=== PATIENT | male | born 1955 ===

== ENCOUNTER 2022-08-21 09:47 | Emergency (ER) | payer OTHER ==
--- OUTSIDE RECORDS SUMMARY | 2022-08-21 09:58 | XMS REPORT | Continuity of Care Document ---
:1955 Author Organization [facility] t Address [address] [facility] [place] [address] Care Team Providers Name Role Phone PCP, PATIENT DOES NOT HAVE A Primary Care Physician UnavailJERRY Mcknight Attending Clinician Unavailable MECHE MATA Attending Clinician Unavailable Leon Mills DO Attending Clinician Geoff Breen DO Attending Clinician Meche Mata MD Attending Clinician Morenita Traylor RN Attending Clinician Nicholas Cavazos W Attending Clinician Unavailable Emily Alves LVN Attending Clinician Mable Hsu Attending Clinician Jerry Taylor MD Attending Clinician Nura Myers Attending Clinician Unavailable Jaycee Roldan Attending Clinician Unavailable Behzadi MD, Tom A Attending Clinician Tico LEAHY, Dewayne G Attending Clinician Geoff LEAHY, Anne Giron Attending Clinician [phone] Dexter Rutledge DO Attending Clinician CLARKEDDATOM STEWART A Attending Clinician Unavailable Katelin LEAHY, Nicholas Castorena Attending Clinician Shweta LEAHY, Shay Randall Attending Clinician NICHOLAS SERRANO Attending Clinician Unavailable Judah Ross APN Attending Clinician JUDAH ROSS Attending Clinician Unavailable Isauro CHRISTINEP, Anum Snowden Attending Clinician Zoran Morris MD Attending Clinician Pramod YEBOAH, Dang Martinez Attending Clinician Belen Stark MD Attending Clinician BELEN STARK Attending Clinician Unavailable Soy LEAHY, Jemma Roblero Attending Clinician [phone] Odilon Zaragoza MD Attending Clinician Marylou Borrego MD Attending Clinician Lucille Darby RN Attending Clinician Umu Nielson MD Attending Clinician Valdez LEAHY, Jareth Harrison Attending Clinician UMU NIELSON Attending Clinician Unavailable Link Fuentes MD Attending Clinician JERRY TAYLOR Admitting Clinician Unavailable MECHE MATA Admitting Clinician Unavailable Adolfo LEAHY, Meche Admitting Clinician Jerry Taylor MD Admitting Clinician UNDEFINED Admitting Clinician Unavailable Physician, No Primary or Family Admitting Clinician Unavailboris Doshi MD, Dewayne G Admitting Clinician Shay Rock MD Admitting Clinician Nik LEAHY, Odilon Admitting Clinician Valdez LEAHY, Jareth Harrison Admitting Clinician Geoff LEAHY, Anne Giron Admitting Clinician Payers Payer Name Policy Type Policy Number Effective Date Expiration Date Bret mayer MEDICARE PART A [id number] 2021 \\T\\ B 00:00:00 MEDICAID [facility] [id number] 2021 00:00:00 Problems Condition Condition Condition Status Onset Resolution Last Treating Co mments Source Name Details Category Date Date Treatment Clinician Date Syncope Syncope Disease Active 2020-03 Univers 1-06 ity of 00:00: [place] [facility] Tachycardi Tachycardi Disease Active 2020-03 U nivers a a 1-06 ity of 00:00: [address] Branch COVID-19 COVID-19 Disease Active 2020-03 Unive rs virus virus 1-06 ity of infection infection 00:00: [facility] Branch Elevated Elevated Disease Active 2020-03 Unive rs brain brain 1-06 ity of natriureti natriureti [place] c peptide c peptide 00 [facility] león (BNP) (BNP) Branch level level Sepsis Sepsis Disease Active 2020-03 Univers 1-04 ity of 00:00: [address] Branch Confusion Confusion Disease Active 2019-03 Uni vers and and 1-12 ity of disorient[place] dis[place] Hypothermi Hypothermi Disease Active 2019-03 U nivers a a 0-29 ity of 00:00: [address] Branch Diarrhea Diarrhea Disease Active 2019-03 Unive rs with with 0-02 ity of dehydratio dehydratio [place] Electrolyt Electrolyt Disease Active U nivers e e 9-30 it[place] of imbalance imbalance [place] [facility] Weakness Weakness Disease Active Unive rs of both of both 9-29 ity of lower lower 00:00: [place] extremitie extremitie 00 Nv dical s s Branch Suspected Suspected Disease Active 2020-0 Uni vers COVID-19 COVID-19 8-11 ity of virus virus 00:00: [place] infection infection 00 [facility] Branch Prolonged Prolonged Disease Active 2020-0 Uni vers QT QT 8-11 ity of interval interval 00:00: Medical Branch Hypomagnes Hypomagnes Disease Active 2020-0 U nivers emia emia 8-11 ity of 00:: Medical Branch Hyponatrem Hyponatrem Disease Active 2020-0 U nivers ia ia 8-11 ity of 00:: [place] [facility] Tobacco Tobacco Disease Active 2020-0 Univers abuse abuse 8-11 ity of 00:: [place] [facility] Alcohol Alcohol Disease Active 2020-0 Univers abuse abuse 8-11 ity of 00:: Medical Branch Allergies, Adverse Reactions, Alerts Allergy Allergy Status Severity Reaction(s) Onset Inactive Treating Comm ents Source Name Type Date Date Clinician No Known DA Active U 2020-1 [facility] 00:[facility]: d [facility] No Known DA Active U 2020-1 [facility]ie 2[facility]07 [facility] 00:00: d [facility] No Known DA Active U 2020-1 [facility]ergie 2[facility]06 [facility] 00:00: d [facility] No Known DA Active U 2020-1 [facility] Allergie 2-06 [facility] 00:00: d [facility] No Known DA Active U 2020-1 [facility] Allergie 2-05 [facility] 00:00: d [facility] No Known DA Active U 2020-1 [facility] Allergie 2-05 [facility] 00:00: d [facility] No Known DA Active U 2020-1 [facility] Allergie 2-04 [facility] 00:00: d [facility] No Known DA Active U 2020-1 [facility] Allergie 2-04 [facility] 00:00: d [facility] No Known DA Active U 2020-1 [facility] Allergie 2-03 [facility] 00:00: d [facility] No Known DA Active U 2020-1 [facility] Allergie 2-03 [facility] 00:00: d [facility] No Known DA Active U 2020-1 [facility] Allergie 1-20 Clear s 00:00: Patel [facility] No Known DA Active U 2020-1 [facility] Allergie 1-20 Clear s 00:00: Patel 00 [facility] NO KNOWN Drug Active Univers ALLERGIE Class ity of S [facility] Social History Social Habit Start Date Stop Date Quantity Comments Source History of Cigarette Smoker Universi ty of tobacco use [facility] Exposure to Not sure University of SARS-CoV-2 [facility]ly [facility] (event) [place] Alcohol intake 2021-01-05 2021-01-05 Current drinker Unive rsity of 00:00:00 00:00:00 of alcohol Formerly [facility] (finding) [place] Tobacco use and 2019-12-30 2019-12-30 Never used Universit y of exposure 00:00:00 00:00:00 [facility] Sex [birth year] Universit y of 00:00:00 00:00:00 [facility] Smoking Status Start Date Stop Date Source Current every day smoker 2019-12-30 00:00:00 Uni versity of [facility] Medications Ordered Filled Start Stop Current Ordering Indication Dosage Frequency Signature Comments Components Source Medication Medication Date Date Medication? Clinician (SIG) Name Name foLIC acid Yes [id number] 1mg Take 1 U nivers 1 mg tablet 3-18 tablet by ity of 00:00: mouth [place] 00 daily. Medical Branch multivitami Yes [id number] 1{tbl} Take 1 Univers n tablet 3-18 tablet by ity of 00:00: mouth [place] 00 daily. Medical Branch thiamine Yes [id number] 100mg Take 1 Un ange 100 mg 3-18 tablet by ity of tablet 00:00: mouth [place] 00 daily. Medical Branch ceFAZolin Yes 2g Infuse 100 Un ange in 0.9% 3-17 mL every 8 ity of sodium 00:00: (eight) [place] chloride 2 00 hours. Medical gram/100 mL Branch NaCl 0.9% Yes 1000mg Infuse Univ ers (NS) PgBk 3-17 1,000 mg ity of 100 mL with 00:00: every 8 [place] as meropenem 00 (eight) Medical 500 mg SolR hours. Branch 1,000 mg ferrous 2021- No [id number] 325mg Take 1 Un ange sulfate 325 3-17 04-17 tablet by it y of mg (65 mg 00:00: 04:59 [place] 3 [place] iron) 00 :00 (three) Medical tablet times Branch daily with meals for 30 days. NaCl 0.9% Yes 10mL 10 mL, Univer s (NS) 3-16 Slow IV ity of injection 20:27: [place]N, [place] 10 mL 47 Starting Medical on Fri05/16/21 at 1527, Until Discontinu ed, Routine, line maintenanc e ferrous Yes 325mg 325 mg, Univer s sulfate 3-15 Oral, TID ity of tablet 325 22:00: MEALS, [place] mg 00 First dose Medical on Fri05/15/21 at 1700, Until Discontinu ed, Routine sulfur 2021- No [id number] 5mL 5 mL, Univ ers hexafluorid 05-15 Intravenou i ty of e microsphr 21:30: 21:30 s, ONCE, 1 [place] (LUMASON) 00 :00 dose, On Medica l injection 5 Fri [place] mL 05/15/21 at 1630, Routine
hull line crew member approving Restricted medication : LEXUS MENJIVAR magnesium 2021- No 2g 2 g, IV Univ ers sulfate in 05-15 Piggyback, it y of water 2 19:00: 21:00 Administer [place] gram/50 mL 00 :00 over 60 Medica l (4 %) Minutes, Branch infusion 2 Q1H, 2 g doses, First dose on Fri05/15/21 at 1400, Last dose on Fri05/15/21 at 1500, Routine multivitami Yes 1{tbl} 1 tablet, Univers n tablet 1 3-15 Oral, ity of tablet 14:00: DAILY, [place] 00 First dose Medical on Fri05/15/21 at 0900, Until Discontinu ed, Routine morpHINE Yes 4mg 4 mg, Slow Uni vers injection 4 3-15 IV Push, ity of mg 08:37: Q4HPRN, [place] Starting Medical on Fri05/15/21 at 0337, Until Discontinu ed, Routine, Pain (scale 7-10) HYDROcodone Yes 1{tbl} 1 tablet, Univers -acetaminop 3-15 Oral, ity of hen (NORCO 08:37: Q6HPRN, [place] 5) 5-325 mg 00 Starting Medi león tablet 1 on Fri Branch tablet 05/15/21 at 0337, Until Discontinu ed, Routine, Pain (scale 4-6) acetaminoph 2021-0 Yes 650mg 650 mg, Un ange en 3-15 Oral, ity of (TYLENOL) 08:36: Q6HPRN [place] tablet 650 48 Starting Medic al mg on Fri Branch 05/15/21 at 0336, Until Discontinu ed, Routine, Pain (scale 1-3) meropenem 0 Yes 1000mg 1,000 mg, U nivers (MERREM) 3-15 IV ity of 1,000 mg in 03:15: [place], [place] NaCl 0.9% 00 Administer Medi león (NS) 100 mL over 3 Branch MINI-BAG Hours, Q8H ABX, First dose on Fri05/14/21 at 2215, Until Discontinu ed, BARBARA
Re stricted use approved by: ADC PROVIDER<b r>Reason for Anti-Infec tive: Documented Infection< br>Documen brisa Infection Site: Bone
Du ration of Therapy: 7 days ceFAZolin 0 Yes 2000mg 2 g (2,000 Univers in 0.9% 3-14 mg), IV ity of sodium 19:45: [place], [place] chloride 00 Q8H ABX, Medical (ANCEF) 2 First dose Bran ch gram/100 mL on Fri RTU 2 g 05/14/21 at 1445, Until Discontinu ed, Administer over 30 Minutes
Reason for Anti-Infec tive: Documented Infection< br>Documen brisa Infection Site: Bone
Du ration of Therapy: 14 days meropenem 2021-0 202- No 1000mg 1,000 mg, Univers (MERREM) 14 03-14 IV ity of 1,000 mg in 19:45: 20:15 [place], [place] NaCl 0.9% 00 :00 Administer Medi león (NS) 100 mL over 30 Branc h MINI-BAG Minutes, ONCE, 1 dose, On Fri05/14/21 at 1445, BARBARA<br&gt ;Restricte d use approved by: ADC PROVIDER<b r>Reason for Anti-Infec tive: Documented Infection& lt;br>Docu mented Infection Site: Bone
Du ration of Therapy: 7 days piperacilli 2021- No 3.375g 3.375 g, Univers n-tazobacta 05-14 IV ity of m (ZOSYN) 04:30: 18:40 [place], [place] 3.375 g in 00 :35 Q8H ABX, Medic al NaCl 0.9% First dose Bran ch (NS) 100 mL on Sun MINI-BAG 05/13/21 at 2330, Until Discontinu ed, Administer over 4 Hours, 100 mL
Reas on for Anti-Infec tive: Documented Infection< br>Documen brisa Infection Site: Bone
Du ration of Therapy: 14 days piperacilli 2021- No 3.375g 3.375 g, Univers n-tazobacta 05-13 IV ity of m (ZOSYN) 21:00: 23:27 [place], [place] 3.375 g in 00 :00 ONCE, 1 Medica l NaCl 0.9% dose, On Branch (NS) 100 mL Sun MINI-BAG 05/13/21 at 1600, Administer over 30 Minutes, 100 mL
Reas on for Anti-Infec tive: Documented Infection< br>Documen brisa Infection Site: Bone<br&gt ;Duration of Therapy: 14 days magnesium 2021- No 2g 2 g, IV Univ ers sulfate in 05-13 Piggyback, it y of water 2 15:00: 17:58 Administer [place] gram/50 mL 00 :00 over 60 Medica l (4 %) Minutes, Branch infusion 2 Q1H, 3 g doses, First dose (after last reorder) on 05/13/21 at 1000, Last dose on 05/13/21 at 1200, Routine potassium 2021- No 10meq 10 mEq, IV Univers chloride in 05-13 Piggyback, i ty of water 10 14:30: 17:59 Q1H, 4 [place] mEq/100 mL 00 :00 doses, Medical RTU 10 mEq First dose Bra nch on 05/13/21 at 0930, Last dose on 05/13/21 at 1200, Administer over 60 Minutes, 100 mL ceFEPIme 2021- No 2000mg 2,000 mg, U nivers (MAXIPIME) 05-13 IV ity of 2,000 mg in 06:15: 19:56 [place], [place] NaCl 0.9% 00 :41 Q8H ABX, Medica l (NS) 50 mL First dose Bra [facility] MINI-BAG on [place] 05/13/21 at 0015, Until Discontinu ed, Administer over 4 Hours, 50 mL
Reas on for Anti-Infec tive: Documented Infection< br>Documen brisa Infection Site: Skin / Soft Tissue
Duration of Therapy: 14 days magnesium 2021- No 400mg 400 mg, Uni vers oxide 05-13 Oral, BID, ity of (MAG-OX 02:00: 13:33 10 doses, [place] 400) tablet 00 :00 First dose Me dical 400 mg on Sat Branch 05/12/21 at 2000, Last dose on [place] 05/17/21 at 0800, Routine ceFEPIme 2021- No 1000mg 1,000 mg, U nivers (MAXIPIME) 05-12 IV ity of 1,000 mg in 22:45: 00:53 [place], [place] NaCl 0.9% 00 :00 ONCE, 1 Medical (NS) 50 mL dose, On Bran h MINI-BAG [facility] 05/12/21 at 1645, Administer over 30 Minutes, 50 mL
Reas on for Anti-Infec tive: Empiric Therapy for Suspected Infection< br>Empiric Therapy Site: Skin / Soft tissue
Duration of therapy: 7 days magnesium 2021- No 2g 2 g, IV Univ ers sulfate in 05-12 Piggyback, it y of water 2 16:00: 22:48 Administer [place] gram/50 mL 00 :00 over 60 Medica l (4 %) Minutes, Branch infusion 2 Q1H, 3 g doses, First dose (after last reorder) on 05/12/21 at 1000, Last dose on [facility] 05/12/21 at 1200, Routine gadoteridol 2021- No [id number] .2mL/kg 9.08 mL Univers (PROHANCE-1 05-1212 (0.2 mL/kg i ty of 5 mL) 01:30: 01:30 ?45.4 kg), [place] injection 00 :00 Intravenou Medi león 9.08 mL s, ONCE, 1 Branch dose, On Fri05/11/21 at 1930, Routine enoxaparin Yes 40mg 40 mg, Unive rs (LOVENOX) 05-11 Subcutaneo ity of injection 22:00: us, Q24H, [place] 40 mg 00 First dose Medical on Fri Branch 05/11/21 at 1600, Until Discontinu ed, Routine D5W 0.9% 2021- No 1000mL at 50 Unive rs NaCl (NS) 05-1113 mL/hr, ity of IV infusion 20:45: 19:58 1,000 mL, [place] 1,000 mL 00 :25 IV Medical Infusion, Branch CONTINUOUS , Starting on Fri05/11/21 at 1445, Until Fri05/13/21 at 1458, Routine magnesium 2021- No 2g 2 g, IV Univ ers sulfate in 05-11 Piggyback, it y of water 2 16:00: 19:17 Administer [place] gram/50 mL 00 :00 over 60 Medica l (4 %) Minutes, Branch infusion 2 Q1H, 3 g doses, First dose on Fri05/11/21 at 1000, Last dose on Fri05/11/21 at 1200, Routine KCL No 40meq 40 mEq, Univers (KLOR-CON 05-1114 Oral, BID, ity of M20) tablet 15:30: 20:15 First dose [place] 40 mEq 00 :41 (after Medical last Branch reorder) on Fri05/11/21 at 0930, Until Discontinu ed, Routine KCL 2021- No 40meq 40 mEq, Univers (KLOR-CON 05-10-10 Oral, ity of M20) tablet 15:30: 15:05 ONCE, 1 [place] 40 mEq 00 :00 dose, On Medical [place] Branch 05/10/21 at 0930, Routine foLIC acid Yes 1mg 1 mg, Univer s (FOLATE) 3-10 Oral, ity of tablet 1 mg 15:00: DAILY, [place] 00 First dose Medical on [place] Branch 05/10/21 at 0900, Until Discontinu ed, Routine thiamine Yes 100mg 100 mg, Unive rs (VITAMIN 3-10 Oral, ity of B1) tablet 15:00: DAILY, [place] 100 mg 00 First dose Medical on [place] Branch 05/10/21 at 0900, Until Discontinu ed, Routine Vancomycin 2021- No 15mg/kg 750 mg U nivers 750 mg in 05-10 (rounded ity o f NaCl 0.9% 10:45: 21:26 from 681 [place] as (NS) 250 mL 00 :23 mg = 15 Medic al VIAL-MATE mg/kg Branch ?45.4 kg), IV Piggyback, Q12H ABX, First dose on [place] 05/10/21 at 0445, Until Discontinu ed, Administer over 60 Minutes, 250 mL
Reas on for Anti-Infec tive: Documented Infection< br>Documen brisa Infection Site: Skin / Soft Tissue
Duration of Therapy: 7 days D5W 0.9% 2021- No 1000mL at 75 Unive rs NaCl (NS) 05-10 03-11 mL/hr, ity of IV infusion 04:00: 20:44 1,000 mL, [place] 1,000 mL 00 :07 IV Medical Infusion, Branch CONTINUOUS , Starting on Fri05/09/21 at 2200, Until Fri05/11/21 at 1444, Routine calcium No 2g 2 g, IV Univer s gluconate 2 05-10-10 Infusion, it y of g in NaCl 04:00: 04:05 ONCE, 1 [place] 100 mL 00 :00 dose, On Medical (ISO-OSM) 05/09/21 Bran ch RTU IV at 2200, infusion 2 Routine g KCL 2021- No 40meq 40 mEq, Univers (KLOR-CON 05-10-10 Oral, ity of M20) tablet 04:00: 04:14 ONCE, 1 [place] 40 mEq 00 :00 dose, On Medical Fri05/09/21 Branch at 2200, Routine potassium No 10meq 10 mEq, IV Univers chloride in 05-10 Piggyback, i ty of water 10 03:00: 05:45 Q1H, 2 [place] mEq/100 mL 00 :00 doses, Medical RTU 10 mEq First dose Bra nch on Fri05/09/21 at 2100, Last dose on Fri05/09/21 at 2200, Administer over 60 Minutes, 100 mL oxazepam Yes 15mg 15 mg, Univers (SERAX) 3-10 Oral, ity of capsule 15 02:52: Q4HPRN, [place] mg 25 Starting Medical on Fri Branch 05/09/21 at 205, Until Discontinu ed, Routine, Only while awake for DBP equal to or greater than 100, HR equal to or greater than 100. heparin 2021- No 5000U 5,000 Univers (porcine) 05-10-11 Units, ity of injection 02:00: 20:49 Subcutaneo [place] 5,000 Units 00 :01 us, Q12H, Med ical First dose Branch on Fri05/09/21 at 2000, Until Discontinu ed, Routine iopamidol 2021- No [id number] 100mL 100 mL, Univers (ISOVUE 05-09 Intravenou ity o f 370-500 mL) 23:15: 23:15 s, ONCE, 1 [place] injection 00 :00 dose, On Medica l 100 mL Fri05/09/21 Branch at 1715, Routine thiamine 2021- No IV Univers (VITAMIN 05-09 Infusion, ity o f B1) 100 mg, 22:45: 02:54 at 200 [place] as foLIC acid 00 :19 mL/hr, Medical (FOLATE) 1 CONTINUOUS Bra nch mg in D5W , Starting 0.45% NaCl on Fri (1/2NS) IV 05/09/21 at Solution 1645, Until Fri05/09/21 at 2053, 1,000 mL LORazepam 2021- No 1mg 1 mg, Slow U nivers (ATIVAN) 05-09 IV Push, ity of injection 1 22:45: 22:01 ONCE, 1 [place] mg 00 :00 dose, On Medical 05/09/21 Branch at 1645, STAT cefTRIAXone 2021- No 1000mg 1,000 mg, Univers (ROCEPHIN) 05-09 Slow IV ity o f injection 21:45: 21:34 Push, Q24H [place] 1,000 mg 00 :37 ABX, First Medic al dose on Branch Fri05/09/21 at 1545, Until Discontinu ed, BARBARA<br&gt ;Reason for Anti-Infec tive: Empiric Therapy for Suspected Infection< br>Empiric Therapy Site: Abdominal< br>Duratio n of therapy: 72 hours magnesium 2021- No 2g 2 g, IV Univ ers sulfate in 05-09 Piggyback, it y of water 2 21:45: 21:40 Administer [place] as gram/50 mL 00 :00 over 60 Medica l (4 %) Minutes, Branch infusion 2 ONCE, 1 g dose, On Fri05/09/21 at 1545, Routine NaCl 0.9% No 30mL/kg at 999 Un ange (NS) bolus 05-09 mL/hr, ity of infusion 21:45: 22:26 1,362 mL [place] 1,362 mL 00 :00 (30 mL/kg Medica l ?45.4 kg), Branch IV Piggyback, ONCE, 1 dose, On Fri05/09/21 at 1545, STAT levothyroxi 2020-03- No [id number] 50ug Take 1 Univers ne 50 mcg 1-13 12-14 tablet by ity of tablet 00:00: 05:59 mouth [place] 00 :00 every Medical morning Branch for 30 days. multivitami 2020-03- No [id number] 1{tbl} Take 1 Univers n tablet 1-13 12-14 tablet by ity o f 00:00: 05:59 mouth [place] 00 :00 daily for Medical 30 days. Branch levothyroxi 2020-03- No [id number] 50ug Take 1 Univers ne 50 mcg 1-13 12-14 tablet by ity of tablet 00:00: 05:59 mouth [place] 00 :00 every Medical morning Branch for 30 days. multivitami 2020-03- No [id number] 1{tbl} Take 1 Univers n tablet 1-13 12-14 tablet by ity o f 00:00: 05:59 mouth [place] 00 :00 daily for Medical 30 days. Branch levothyroxi 2020-03- No [id number] 50ug Take 1 Univers ne 50 mcg 03-15-14 tablet by ity of tablet 00:00: 05:59 mouth [place] 00 :00 every Medical morning Branch for 30 days. multivitami 2020-03- No [id number] 1{tbl} Take 1 Univers n tablet 03-15-14 tablet by ity o f 00:00: 05:59 mouth [place] 00 :00 daily for Medical 30 days. Branch levothyroxi 2020-03- No [id number] 50ug Take 1 Univers ne 50 mcg 03-15-14 tablet by ity of tablet 00:00: 05:59 mouth [place] 00 :00 every Medical morning Branch for 30 days. multivitami 2020-03- No [id number] 1{tbl} Take 1 Univers n tablet 03-15-14 tablet by ity o f 00:00: 05:59 mouth [place] 00 :00 daily for Medical 30 days. Branch levothyroxi 2020-03- No [id number] 50ug Take 1 Univers ne 50 mcg 03-15-14 tablet by ity of tablet 00:00: 05:59 mouth [place] 00 :00 every Medical morning Branch for 30 days. multivitami 2020-03- No [id number] 1{tbl} Take 1 Univers n tablet 03-15-14 tablet by ity o f 00:00: 05:59 mouth [place] 00 :00 daily for Medical 30 days. Branch levothyroxi 2020-03- No [id number] 50ug Take 1 Univers ne 50 mcg 03-15-14 tablet by ity of tablet 00:00: 05:59 mouth [place] 00 :00 every Medical morning Branch for 30 days. multivitami 2020-03- No [id number] 1{tbl} Take 1 Univers n tablet 03-15 12-14 tablet by ity o f 00:00: 05:59 mouth [place] 00 :00 daily for Medical 30 days. Branch magnesium 2020-03- No [id number] 400mg Take 400 Univers oxide 420 - 12-13 mg by ity of mg Tab 00:00: 05:59 mouth [place] 00 :00 daily for Medical 30 days. Branch thiamine 2020-03- No [id number] 100mg Take 1 Un ange 100 mg 03-14 12-13 tablet by ity of tablet 00:00: 05:59 mouth [place] 00 :00 daily for Medical 30 days. Branch metoprolol 2020-03- No [id number] 25mg Take 1 Univers tartrate 25 03-14-13 tablet by it y of mg tablet 00:00: 05:59 mouth 2 [place] 00 :00 (two) Medical times [place] daily for 30 days. foLIC acid 2020-03- No [id number] 1mg Take 1 Univers 1 mg tablet 03-14-13 tablet by it y of 00:00: 05:59 mouth [place] 00 :00 daily for Medical 30 days. Branch magnesium 2020-03- No [id number] 400mg Take 400 Univers oxide 420 03-14 12-13 mg by ity of mg Tab 00:00: 05:59 mouth [place] 00 :00 daily for Medical 30 days. Branch thiamine 2020-03- No [id number] 100mg Take 1 Un ange 100 mg 03-14-13 tablet by ity of tablet 00:00: 05:59 mouth [place] 00 :00 daily for Medical 30 days. Branch metoprolol 2020-03- No [id number] 25mg Take 1 Univers tartrate 25 03-14-13 tablet by it y of mg tablet 00:00: 05:59 mouth 2 [place] 00 :00 (two) Medical times [place] daily for 30 days. foLIC acid 2020-03- No [id number] 1mg Take 1 Univers 1 mg tablet 03-14-13 tablet by it y of 00:00: 05:59 mouth [place] 00 :00 daily for Medical 30 days. Branch magnesium 2020-03- No [id number] 400mg Take 400 Univers oxide 420 03-14 12-13 mg by ity of mg Tab 00:00: 05:59 mouth [place] 00 :00 daily for Medical 30 days. Branch thiamine 2020-03- No [id number] 100mg Take 1 Un ange 100 mg 03-14 12-13 tablet by ity of tablet 00:00: 05:59 mouth [place] 00 :00 daily for Medical 30 days. Branch metoprolol 2020-03- No [id number] 25mg Take 1 Univers tartrate 25 03-14-13 tablet by it y of mg tablet 00:00: 05:59 mouth 2 [place] 00 :00 (two) Medical times Branch daily for 30 days. foLIC acid 2020-03- No [id number] 1mg Take 1 Univers 1 mg tablet 03-14-13 tablet by it y of 00:00: 05:59 mouth [place] 00 :00 daily for Medical 30 days. Branch magnesium 2020-03- No [id number] 400mg Take 400 Univers oxide 420 03-14 12-13 mg by ity of mg Tab 00:00: 05:59 mouth [place] 00 :00 daily for Medical 30 days. Branch thiamine 2020-03- No [id number] 100mg Take 1 Un ange 100 mg 03-14-13 tablet by ity of tablet 00:00: 05:59 mouth [place] 00 :00 daily for Medical 30 days. Branch metoprolol 2020-03- No [id number] 25mg Take 1 Univers tartrate 25 03-14-13 tablet by it y of mg tablet 00:00: 05:59 mouth 2 [place] 00 :00 (two) Medical times [place] daily for 30 days. foLIC acid 2020-03- No [id number] 1mg Take 1 Univers 1 mg tablet 03-14-13 tablet by it y of 00:00: 05:59 mouth [place] 00 :00 daily for Medical 30 days. Branch magnesium 2020-03- No [id number] 400mg Take 400 Univers oxide 420 03-14 12-13 mg by ity of mg Tab 00:00: 05:59 mouth [place] 00 :00 daily for Medical 30 days. Branch thiamine 2020-03- No [id number] 100mg Take 1 Un ange 100 mg 03-14-13 tablet by ity of tablet 00:00: 05:59 mouth [place] 00 :00 daily for Medical 30 days. Branch metoprolol 2020-03- No [id number] 25mg Take 1 Univers tartrate 25 03-14 12-13 tablet by it y of mg tablet 00:00: 05:59 mouth 2 [place] 00 :00 (two) Medical times Branch daily for 30 days. foLIC acid 2020-03- No [id number] 1mg Take 1 Univers 1 mg tablet 03-1413 tablet by it y of 00:00: 05:59 mouth [place] 00 :00 daily for Medical 30 days. Branch magnesium 2020-03- No [id number] 400mg Take 400 Univers oxide 420 03-14-13 mg by ity of mg Tab 00:00: 05:59 mouth [place] 00 :00 daily for Medical 30 days. Branch thiamine 2020-03- No [id number] 100mg Take 1 Un ange 100 mg 03-1413 tablet by ity of tablet 00:00: 05:59 mouth [place] 00 :00 daily for Medical 30 days. Branch metoprolol 2020-03- No [id number] 25mg Take 1 Univers tartrate 25 03-14 tablet by it y of mg tablet 00:00: 05:59 [place] 2 [place] 00 :[place] (two) Medical times [place] daily for 30 days. foLIC acid 2020-03- No [id number] 1mg Take 1 Univers 1 mg tablet 03-14 tablet by it y of 00:00: 05:59 mouth [place] 00 :00 daily for Medical 30 days. Branch magnesium 2020-03 No 400mg 400 mg, Uni vers oxide 03-12 Oral, BID, ity of (MAG-OX 02:00: 01:59 8 doses, [place] 400) tablet 00 :00 First dose Me dical 400 mg on Fri [place] 01/09/21 at 2000, Last dose on [facility] 01/13/21 at 0800, Routine Vancomycin 2020-03- No 15mg/kg 750 mg U nivers 750 mg in 03-11 (rounded ity o f NaCl 0.9% 23:00: 18:51 from 802.5 [place] (NS) 250 mL 00 :30 mg = 15 Medic al VIAL-MATE mg/kg Branch ?53.5 kg), IV Piggyback, Q12H ABX, First dose on Fri01/09/21 at 1700, Until Discontinu ed, Administer over 60 Minutes, 250 mL
Reas on for Anti-Infec tive: Documented Infection< br>Documen brisa Infection Site: Blood
D uration of Therapy: 14 days thiamine 2020-03 Yes 100mg 100 mg, Unive rs (VITAMIN 03-11 Oral, ity of B1) tablet 22:45: DAILY, [place] 100 mg 00 First dose Medical on [facility] 01/09/21 at 1645, Until Discontinu ed, Routine magnesium 2020-03- No [id number] 1g 1 g, IV Univers sulfate in 03-11 Piggyback, it y of D5W 1 18:30: 19:30 ONCE, 1 [place] gram/100 mL 00 :00 dose, On [facility] RTU IV [facility] Piggyback 01/09/21 at g 1230, Administer over 60 Minutes, 100 mL furosemide 2020-03- No [id number] 60mg 60 mg, Univers (LASIX) 03-11 Slow IV ity of injection 18:30: 17:31 Push, [place] 60 mg 00 :00 ONCE, 1 Medical dose, On [facility] 01/09/21 at 1230, STAT NaCl 0.9% 2020-03- No [id number] 500mL at 250 Univers (NS) bolus 03-11 mL/hr, 500 it y of infusion 18:30: 17:35 mL, IV [place] 500 mL 00 :00 [facility], Medical ONCE, 1 Branch dose, On [facility] 01/09/21 at 1230, STAT loperamide 2020-03 Yes 4mg 4 mg, Univer s (IMODIUM 03-10 Oral, ity of A-D) 00:25: Q6HPRN, [place] capsule 4 48 Starting Medica l mg on [facility] 01/07/21 at 1825, Until Discontinu ed, Routine, Diarrhea cefTRIAXone 2020-03- No 1000mg 1,000 mg, Univers (ROCEPHIN) 03-09 IV ity of 1,000 mg in 20:30: 22:51 Piggyback, [place] NaCl 0.9% 00 :53 Q24H ABX, Medic al (NS) 50 mL First dose Bra [facility] MINI-BAG on [place] 01/07/21 at 1430, Until Discontinu ed, Administer over 30 Minutes, 50 mL
Reas on for Anti-Infec tive: Empiric Therapy for Suspected Infection< br>Empiric Therapy Site: Blood
D uration of therapy: 72 hours magnesium 2020-03 No 4g 4 g, IV Univ ers sulfate in 03-09 Piggyback, it y of water 4 17:30: 19:16 ONCE, 1 [place] gram/50 mL 00 :00 dose, On Medic al (8 %) IV [place] Branch Piggyback 4 01/07/21 at g 1130, Routine furosemide 2020-03- No 20mg 20 mg, Univ ers (LASIX) 03-09 Slow IV ity of injection 16:30: 17:37 Push, [place] 20 mg 00 :47 DAILY, Medical First dose Branch on [place] 01/07/21 at 1030, Until Discontinu ed, Routine levothyroxi 2020-03 Yes 50ug 50 mcg, Uni vers ne 03-09 Oral, ity of (SYNTHROID) 12:00: QAM-0600, [place] tablet 50 00 First dose Medi león mcg (after Branch last modificati on) on [place] 01/07/21 at 0600, Until Discontinu ed, Routine KCL 2020-03 No 40meq 40 mEq, Univers (KLOR-CON 03-09 Oral, BID, ity of M20) tablet 01:00: 17:13 First dose [place] 40 mEq 00 :20 (after Medical last Branch modificati on) on [facility] 01/06/21 at 2000, Until Discontinu ed, Routine ipratropium 2020-03 Yes 3mL 3 mL, Unive rs -albuteroL 03-08 Inhalation ity of (DUONEB) 17:00: , QIDPRN, [place] 0.5 mg-3 00 Starting Medical mg(2.5 mg on Sat Branch base)/3 mL 01/06/21 at nebulizer 1200, solution 3 Until mL Discontinu ed, Routine, Wheezing magnesium 2020-03 No 4g 4 g, IV Univ ers sulfate in 03-08 Piggyback, it y of water 4 15:00: 16:50 ONCE, 1 [place] gram/50 mL 00 :00 dose, On Medic al (8 %) IV [facility] Branch Piggyback 4 01/06/21 at g 1000, Routine calcium 2020-03- No [id number] 1g 1 g, IV Uni vers gluconate 1 03-08 Infusion, it y of g in NaCl 04:15: 05:32 ONCE, 1 [place] 50 mL 00 :00 dose, On Medical (ISO-OSM) Fri Branch RTU IV 01/05/21 at infusion 1 2315, g Routine phosphorus 2020-03 No 500mg 2 tablet U nivers (K PHOS 03-08 (500 mg), ity of NEUTRAL) 01:00: 16:25 Oral, BID, [place] tablet 2 00 :16 First dose Medic al tablet on Fri Branch 01/05/21 at 2000, Until Discontinu ed, Routine KCL 2020-03 No 60meq 60 mEq, Univers (KLOR-CON 03-07 Oral, BID, ity of M20) tablet 21:45: 13:46 First dose [place] 60 mEq 00 :30 (after Medical last Branch reorder) on Fri01/05/21 at 1645, Until Discontinu ed, Routine thiamine 2020-03 No [id number] 500mg IV Un ange (VITAMIN 03-07 Piggyback, ity of B1) 500 mg 20:00: 12:18 Q8H, 3 [place] in NaCl 00 :00 doses, Medical 0.9% (NS) First dose Bran ch piggyback on Fri01/05/21 at 1500, Last dose on 01/06/21 at 0600, 50 mL D5W 0.9% 2020-03 IV Univers NaCl (NS) 03-07 Infusion, it y of L + KCL 40 16:30: 13:45 at 75 [place] mEq 00 :58 mL/hr, Medical CONTINUOUS Branch , Starting on Fri01/05/21 at 1130, Until 01/06/21 at 0845, Routine sulfur 2020-03- No [id number] 5mL 5 mL, Univ ers hexafluorid 03-07 Intravenou i ty of e microsphr 16:00: 16:00 s, ONCE, 1 [place] (LUMASON) 00 :00 dose, On Medica l injection 5 Fri Branch mL 01/05/21 at 1100, Routine
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
Reas on for Anti-Infec tive: Empiric Therapy for Suspected Infection< br>Empiric Therapy Site: Other
O ther site: unknown
Duration of therapy: 72 hours multivitami 2020-03 Yes 1{tbl} 1 tablet, Univers n tablet 1 05 Oral, ity of tablet 14:00: DAILY, [place] 00 First dose Medical on Fri Branch 01/05/21 at 0900, Until Discontinu ed, Routine ergocalcife 2020-03 Yes [id number] 50,000 Un ange rol 05 Units, ity of (vitamin 14:00: Oral, [place] d2) 00 QWEEKLY, Medical (CALCIFEROL First dose Br anch ) capsule on Fri 50,000 01/05/21 at Units 0900, Until Discontinu ed, Routine enoxaparin 2020-03 Yes 30mg 30 mg, Unive rs (LOVENOX) 03-07 Subcutaneo ity of injection 14:00: us, DAILY, [place] 30 mg 00 First dose Medical on Fri Branch 01/05/21 at 0900, Until Discontinu ed, Routine docusate 2020-03 Yes 100mg 100 mg, Unive rs (COLACE) 05 Oral, BID, ity o f capsule 100 13:00: First dose [place] mg 00 on Fri Medical 01/05/21 at Branch 0800, Until Discontinu ed, Routine cefTRIAXone 2020-03 No 1000mg 1,000 mg, Univers (ROCEPHIN) 03-0706 IV ity of 1,000 mg in 13:00: 13:48 Piggyback, [place] NaCl 0.9% 00 :25 Q12H ABX, Medic al (NS) 50 mL First dose Bra nch MINI-BAG (after last reorder) on Fri01/05/21 at 0800, Until Discontinu ed, Administer over 30 Minutes, 50 mL
Reas on for Anti-Infec tive: Empiric Therapy for Suspected Infection< br>Empiric Therapy Site: Other
O ther site: unknown
Duration of therapy: 72 hours magnesium 2020-03 No 2g 2 g, IV Univ ers sulfate in 03-07 Piggyback, it y of water 2 06:00: 06:28 ONCE, 1 [place] gram/50 mL 00 :00 dose, On Medic al (4 %) Fri Branch infusion 2 01/05/21 at g 0100, Routine calcium 2020-03 No 2g 2 g, IV Univer s gluconate 2 03-07 Infusion, it y of g in NaCl 05:15: 06:22 ONCE, 1 [place] 100 mL 00 :00 dose, On Medical (ISO-OSM) Fri Branch RTU IV 01/05/21 at infusion 2 0015, g Routine lactated 2020-03 No 1000mL at 125 Univ ers ringers IV 03-07 mL/hr, ity of infusion 05:00: 14:11 1,000 mL, [place] 1,000 mL 00 :02 IV Medical Infusion, Branch CONTINUOUS , Starting on Fri01/05/21 at 0000, Until Fri01/05/21 at 0911, Routine pyridoxine 2020-03 Yes 100mg 100 mg, Uni vers (vitamin 1-05 Oral, ity of B6) 04:45: DAILY, [place] (VITAMIN 00 First dose Medic al B6) tablet on [facility] Branch 100 mg 01/04/21 at 2345, Until Discontinu ed, Routine foLIC acid 2020-03 Yes 1mg 1 mg, Univer s (FOLATE) 1-05 Oral, ity of tablet 1 mg 04:45: DAILY, [place] 00 First dose Medical on [facility] Branch 01/04/21 at 2345, Until Discontinu ed, Routine zinc 2020-03 Yes 220mg 220 mg, Univers sulfate 1-05 Oral, ity of (ORAZINC) 04:45: DAILY, [place] capsule 220 00 First dose Me dical mg on [facility] Branch 01/04/21 at 2345, Until Discontinu ed, Routine metoprolol 2020-03 Yes 25mg 25 mg, Unive rs tartrate 03-07 Oral, BID, ity o f (LOPRESSOR) 04:45: First dose [place] tablet 25 00 on [place] [facility] mg 01/04/21 at Branch 2345, Until Discontinu ed, Routine thiamine 2020-03 No 100mg 100 mg, [facility] ers (VITAMIN 03-07 Oral, ity of B1) tablet 04:45: 04:12 DAILY, [place] 100 mg 00 :21 First dose Medical on [place] Branch 01/04/21 at 2345, Until Discontinu ed, Routine ipratropium 2020-03 No 3mL 3 mL, [facility] ers -albuteroL 03-07 Inhalation it y of (DUONEB) 04:45: 16:48 , BID, [place] 0.5 mg-3 00 :17 First dose Medic al mg(2.5 mg on [facility] Branch base)/3 mL 01/04/21 at nebulizer 2345, solution 3 Until mL Discontinu ed, Routine potassium 2020-03 No 10meq 10 mEq, IV Univers chloride in 03-07 Piggyback, i ty of water 10 04:15: 13:13 Q1H, 6 [place] mEq/100 mL 00 :00 doses, Medical RTU 10 mEq First dose Bra nch (after last reorder) on Fri01/04/21 at 2315, Last dose on Fri01/05/21 at 0400, Administer over 60 Minutes, 100 mL NaCl 0.9% 2020-03 No 1000mL at 150 Uni vers (NS) IV 03-07 mL/hr, IV ity of infusion 03:15: 04:00 Infusion, [place] 1,000 mL 00 :14 CONTINUOUS Medic al , Starting Branch on Fri01/04/21 at 2215, Until Fri01/04/21 at 2300, Routine ondansetron 2020-03 Yes 4mg 4 mg, Slow Univers (ZOFRAN 03-07 IV Push, ity of (PF)) 02:03: Q6HPRN, [place] injection 4 19 Starting Medi león mg on [place] Branch 01/04/21 at 2103, Until Discontinu ed, Routine, Nausea and Vomiting (N/V) KCL 2021-1 2021- No 60meq 60 mEq, Univers (KLOR-CON 03-07 Oral, ity of M20) tablet 01:00: 01:37 ONCE, 1 [place] 60 mEq 00 :00 dose, On Medical [place] [facility] 01/04/21 at 2000, Routine potassium 2020-03 No 10meq 10 mEq, IV Univers chloride in 03-07 Piggyback, i ty of water 10 00:15: 03:59 Q1H, 4 [place] mEq/100 mL 00 :00 doses, Medical RTU 10 mEq First dose Bra nch on [place] 01/04/21 at 1915, Last dose on [place] 01/04/21 at 2200, Administer over 60 Minutes, 100 mL magnesium 2020-03- No 2g 2 g, IV Univ ers sulfate in 03-06 Piggyback, it y of water 2 23:30: 23:20 ONCE, 1 [place] gram/50 mL 00 :00 dose, On Medic al (4 %) [place] Branch infusion 2 01/04/21 at g 1830, Routine cefTRIAXone 2020-03- No 1000mg 1,000 mg, Univers (ROCEPHIN) 03-06 IV ity of 1,000 mg in 23:15: 22:50 Piggyback, [place] NaCl 0.9% 00 :00 ONCE, 1 Medical (NS) 50 mL dose, On Branc h MINI-BAG [place] 01/04/21 at 1815, Administer over 30 Minutes, 50 mL
Reas on for Anti-Infec tive: Empiric Therapy for Suspected Infection< br>Empiric Therapy Site: Other
O ther site: unknown
Duration of therapy: 72 hours NaCl 0.9% 2020-03- No 30mL/kg at 999 Un ange (NS) bolus 03-06 mL/hr, ity of infusion 22:15: 23:45 2,178 mL [place] 2,178 mL 00 :00 (30 mL/kg Medica l ?72.6 kg), Branch IV Infusion, ONCE, 1 dose, On [place] 01/04/21 at 1715, STAT vancomycin 2020-03 No 15mg/kg 1,000 mg Univers (VANCOCIN) 1-04 11-04 (rounded ity of 1,000 mg in 22:15: 23:39 from 1,089 [place] NaCl 0.9% 00 :00 mg = 15 Medical (NS) 250 mL mg/kg Branch VIAL-MATE ?72.6 kg), IV IV piggyback Piggyback, ONCE, 1 dose, On [place] 01/04/21 at 1715, Administer over 60 Minutes, 250 mL
Reas on for Anti-Infec tive: Empiric Therapy for Suspected Infection< br>Empiric Therapy Site: Other
O ther site: unknown
Duration of therapy: 72 hours sodium 2019-03 Yes [id number] Apply to Uni vers hypochlorit 1-04 area(s) as it y of e 0.25% 00:00: needed [place] solution 00 (foot). [facility] sodium 2019-03 Yes [id number] Apply to Uni vers hypochlorit 1-04 area(s) as it y of e 0.25% 00:00: needed [place] solution 00 (foot). [facility] sodium 2019-03 Yes [id number] Apply to Uni vers hypochlorit 1-04 area(s) as it y of e 0.25% 00:00: needed [place] solution 00 (foot). [facility] sodium 2019-03 Yes [id number] Apply to Uni vers hypochlorit 1-04 area(s) as it y of e 0.25% 00:00: needed [place] solution 00 (foot). [facility] sodium 2019-03 Yes [id number] Apply to Uni vers hypochlorit 1-04 area(s) as it y of e 0.25% 00:00: needed [place] solution 00 (foot). Medical [place] sodium 2019-03 Yes [id number] Apply to Uni vers hypochlorit 1-04 area(s) as it y of e 0.25% 00:00: needed [place] solution 00 (foot). [facility] sodium 2019-03 Yes [id number] Apply to Uni vers hypochlorit 1-04 area(s) as it y of e 0.25% 00:00: needed [place] solution 00 (foot). Medical [place] vitamin B-6 2019-03- No [id number] 100mg Take 1 Univers 100 mg 03-06 tablet by ity of tablet 00:00: 00:00 mouth [place] 00 :00 daily. Medical Branch thiamine 2019-03- No [id number] 100mg Take 1 Un ange 100 mg 03-06 tablet by ity of tablet 00:00: 00:00 mouth [place] 00 :00 daily. Medical Branch ergocalcife 2019-03- No [id number] 69749G Take 1 Univers rol, 03-06 capsule by ity of vitamin d2, 00:00: 00:00 mouth [place] 1,250 mcg 00 :00 weekly. Medical (50,000 Branch unit) capsule foLIC acid 2019-03- No [id number] 1mg Take 1 Univers 1 mg tablet 03-06 tablet by it y of 00:00: 00:00 mouth [place] 00 :00 daily. Medical Branch zinc 2019-03- No [id number] 220mg Take 1 Univ ers sulfate 220 03-06 capsule by i ty of (50) mg 00:00: 00:00 mouth 3 [place] capsule 00 :00 (three) Medical times Branch daily. metoprolol 2019-03- No [id number] 25mg Take 1 Univers tartrate 25 03-06 tablet by it y of mg tablet 00:00: 00:00 mouth 2 [place] 00 :00 (two) Medical times Branch daily. albuterol 2019-0 Yes [id number] 2{puff} Inhale 2 Univers 90 8-11 Puffs ity of mcg/actuati 00:00: every 4 [place] on inhaler 00 (four) Medical hours as Branch needed for Wheezing or Shortness of Breath. cetirizine 2019-0 Yes [id number] 5mg Take 1 U nivers 5 mg tablet 10-11 tablet by ity of 00:00: mouth [place] 00 daily. Medical Branch nicotine 21 2019-0 Yes [id number] 1{patch Apply 1 Univers mg/24 hr 8-11 } Patch to ity of patch 00:00: area(s) [place] 00 every 24 Medical (twenty-fo Branch ur) hours. albuterol 2019-0 Yes [id number] 2{puff} Inhale 2 Univers 90 8-11 Puffs ity of mcg/actuati 00:00: every 4 [place] on inhaler 00 (four) Medical hours as Branch needed for Wheezing or Shortness of Breath. cetirizine 2019-0 Yes [id number] 5mg Take 1 U nivers 5 mg tablet 8-11 tablet by ity of 00:00: mouth [place] 00 daily. Medical Branch nicotine 21 2020-0 Yes [id number] 1{patch Apply 1 Univers mg/24 hr 8-11 } Patch to ity of patch 00:00: [facility] [place] 00 every 24 Medical (twenty-fo Branch ur) hours. albuterol 2020-0 Yes [id number] 2{puff} Inhale 2 Univers 90 8-11 Puffs ity of mcg/actuati 00:00: every 4 [place] on inhaler 00 (four) Medical hours as Branch needed for Wheezing or Shortness of Breath. cetirizine 2020-0 Yes [id number] 5mg Take 1 U nivers 5 mg tablet 8-11 tablet by ity of 00:00: mouth [place] 00 daily. Medical Branch nicotine 21 2019-0 Yes [id number] 1{patch Apply 1 Univers mg/24 hr 8-11 } Patch to ity of patch 00:00: [facility] [place] 00 every 24 Medical (twenty-fo Branch ur) hours. albuterol 2020-0 Yes [id number] 2{puff} Inhale 2 Univers 90 8-11 Puffs ity of mcg/actuati 00:00: every 4 [place] on inhaler 00 (four) Medical hours as Branch needed for Wheezing or Shortness of Breath. cetirizine 2020-0 Yes [id number] 5mg Take 1 U nivers 5 mg tablet 8-11 tablet by ity of 00:00: mouth [place] 00 daily. Medical Branch nicotine 21 2020-0 Yes [id number] 1{patch Apply 1 Univers mg/24 hr 8-11 } Patch to ity of patch 00:00: [facility] [place] 00 every 24 Medical (twenty-fo Branch ur) hours. albuterol 2020-0 Yes [id number] 2{puff} Inhale 2 Univers 90 8-11 Puffs ity of mcg/actuati 00:00: every 4 [place] on inhaler 00 (four) Medical hours as Branch needed for Wheezing or Shortness of Breath. cetirizine 2020-0 Yes [id number] 5mg Take 1 U nivers 5 mg tablet 8-11 tablet by ity of 00:00: mouth [place] 00 daily. Medical Branch nicotine 21 2019-0 Yes [id number] 1{patch Apply 1 Univers mg/24 hr 8-11 } Patch to ity of patch 00:00: [facility] [place] 00 every 24 Medical (twenty-fo Branch ur) hours. albuterol 2020-0 Yes [id number] 2{puff} Inhale 2 Univers 90 8-11 Puffs ity of mcg/actuati 00:00: every 4 [place] on inhaler 00 (four) Medical hours as Branch needed for Wheezing or Shortness of Breath. cetirizine 2020-0 Yes [id number] 5mg Take 1 U nivers 5 mg tablet 8-11 tablet by ity of 00:00: mouth [place] 00 daily. Medical Branch nicotine 21 2020-0 Yes [id number] 1{patch Apply 1 Univers mg/24 hr 8-11 } Patch to ity of patch 00:00: [facility] [place] 00 every 24 Medical (twenty-fo Branch ur) hours. albuterol 2020-0 Yes [id number] 2{puff} Inhale 2 Univers 90 8-11 Puffs ity of mcg/actuati 00:00: every 4 [place] on inhaler 00 (four) Medical hours as Branch needed for Wheezing or Shortness of Breath. cetirizine 2020-0 Yes [id number] 5mg Take 1 U nivers 5 mg tablet 8-11 tablet by ity of 00:00: mouth [place] 00 daily. Medical Branch nicotine 21 2019-0 Yes [id number] 1{patch Apply 1 Univers mg/24 hr 8-11 } Patch to ity of patch 00:00: [facility] [place] 00 every 24 Medical (twenty-fo Branch ur) hours. Immunizations Ordered Filled Immunization Date Status Comments [facility] e Immunization Name Name Td 2020-01-13 Completed University of 00:00: [facility] Td 2020-01-13 Completed University of 00:00: [facility] Td 2020-01-13 Completed University of 00:00: [facility] Td 2020-01-13 Completed University of 00:00: [facility] Td 2020-01-13 Completed University of :00: [facility] Td 2020-01-13 Completed University of 00:00: [facility] Td 2020-01-13 Completed University of 00:00:00 [facility] Vital Signs Vital Name Observation Time Observation Value Comments Source Systolic blood 2021-05-17 22:28:00 108 mm[Hg] Univer sity of pressure [place] [facility] Diastolic blood 2021-05-17 22:28:00 71 mm[Hg] Unive rsity of pressure [place] [facility] Heart rate 2021-05-17 22:28:00 77 /min [facility] [place] [facility] Body temperature 2021-05-17 22:28:00 36.78 Ana Univ ersity of [place] [facility] Oxygen saturation in 2021-05-17 22:28:00 99 /min University of Arterial blood by [place] [employer] león Pulse oximetry Branch Respiratory rate 2021-05-17 17:00:00 16 /min Univ ersity [facility] [place] [facility] Body weight 2021-05-16 09:00:00 45.36 kg [facility] [place] [facility] BMI 2021-05-16 09:00:00 14.35 kg/m2 [facility] [place] [facility] Body height 2021-05-15 21:22:00 177.8 cm [facility] [place] [facility] Systolic blood 2021-01-13 01:48:00 112 mm[Hg] Univer sity of pressure [place] [facility] Diastolic blood 2021-01-13 01:48:00 73 mm[Hg] Unive rsity of pressure [place] [facility] Heart rate 2021-01-13 01:48:00 84 /min [facility] [place] [facility] Body temperature 2021-01-13 01:48:00 36.72 Ana Univ ersity of [place] [facility] Respiratory rate 2021-01-13 01:48:00 20 /min Univ ersity of [place] [facility] Oxygen saturation in 2021-01-13 01:48:00 100 /min University of Arterial blood by [facility] Pulse oximetry Branch Body weight 2021-01-12 10:58:00 54.976 kg [facility] [place] [facility] BMI 2021-01-12 10:58:00 15.99 kg/m2 [facility] [place] [facility] Body height 2021-01-04 21:43:00 185.4 cm [facility] [place] [facility] Procedures Procedure Date / Time Performing Clinician Source Performed COVID-19 (ID NOW RAPID 2021-05-17 21:29:00 Meche Mata [facility]) Medical Branch XR CHEST 1 VW 2021-05-17 19:44:01 Meche Mata o f [place] [facility] MAGNESIUM 2021-05-16 08:50:00 [facility] Breen [facility] BASIC METABOLIC PANEL 2021-05-16 08:50:00 Geoff Breen [facility] (NA, K, CL, CO2, GLUCOSE, Medica l Branch BUN, CREATININE, CA) TRANSTHORACIC ECHO (TTE) 2021-05-15 21:22:15 Geoff Breen [facility] COMPLETE W/ CONTRAST Medical Bra nch MAGNESIUM 2021-05-15 09:31:00 [facility]reen [facility] IRON 2021-05-15 09:31:00 [facility] TOTAL IRON BINDING 2021-05-15 09:31:00 Geoff Breen [facility] CAPACITY [facility] BASIC METABOLIC PANEL 2021-05-15 09:31:00 Geoff Breen [facility] (NA, K, CL, CO2, GLUCOSE, Medica l Branch BUN, CREATININE, CA) CBC WITH DIFF 2021-05-15 09:30:00 Geoff Breen [facility] RETICULOCYTES AUTOMATED 2021-05-15 09:30:00 Geoff Breen [facility] HB ECG ROUTINE & RHYTHM 2021-05-15 09:13:59 Geoff Breen [facility] ASPIRATE OR ABSCESS 2021-05-14 23:43:00 Sunshine Singh [facility] CULTURE(AEROBIC/ANAEROBIC Medica l Branch ) COVID-19 (ID NOW RAPID 2021-05-14 19:26:00 Geoff Breen [facility] TESTING) Medical Branch LAB ONLY COVID 2021-05-14 19:26:00 Geoff Breen [facility] INTERPRETATION Medical [place] MAGNESIUM 2021-05-14 09:43:00 Geoff Breen [facility] BASIC METABOLIC PANEL 2021-05-14 09:43:00 Geoff Breen [facility] (NA, K, CL, CO2, GLUCOSE, Medica l Branch BUN, CREATININE, CA) CBC WITH DIFF 2021-05-14 09:43:00 Geoff Breen [facility] MAGNESIUM 2021-05-12 11:21:00 Geoff Breen [facility] BASIC METABOLIC PANEL 2021-05-12 11:21:00 Geoff Breen [facility] (NA, K, CL, CO2, GLUCOSE, Medica l Branch BUN, CREATININE, CA) MR FOOT LEFT W WO 2021-05-12 01:20:51 Nikhil Dumont [facility] CONTRAST [facility] XR SKULL 4+ VW 2021-05-11 16:20:00 Anmol [facility] PHOSPHORUS 2021-05-11 11:18:00 Claudia [facility] MAGNESIUM 2021-05-11 11:18:00 Claudia [facility] BASIC METABOLIC PANEL 2021-05-11 11:18:00 Claudia Jerry [facility] (NA, K, CL, CO2, GLUCOSE, Medica l Branch BUN, CREATININE, CA) CBC WITH DIFF 2021-05-11 11:18:00 Claudia [facility] BLOOD CULTURE SCREEN 2021-05-11 11:17:[address] [facility] XR FOOT 3+ VW LEFT 2021-05-10 19:04:34 Nikhil Dumont [facility] Medical Branch ASPIRATE OR ABSCESS 2021-05-10 17:50:00 Nikhil Dumont [facility] CULTURE(AEROBIC/ANAEROBIC Medica l Branch ) WOUND/ASPIRATE OR ABSCESS 2021-05-10 17:50:00 Nikhil Dumont [facility] Medical Branch MRSA / MSSA SCREEN BY 2021-05-10 05:20:00 Jez Corbin [facility] PCR, NARES [facility] Branch PHOSPHORUS 2021-05-10 05:19:00 Claudia [facility] MAGNESIUM 2021-05-10 05:19:00 Claudia [facility] BASIC METABOLIC PANEL 2021-05-10 05:19:00 Meche Mata [facility] (NA, K, CL, CO2, GLUCOSE, Medica l Branch BUN, CREATININE, CA) LACTIC ACID WHOLE BLOOD 2021-05-10 02:15:00 Shane Esteban [facility] POCT GLUCOSE (AUTOMATED) 2021-05-09 22:43:[address] [facility] [address] ABDOMEN PELVIS W 2021-05-09 21:59:41 Leon Mills [facility] CONTRAST [facility] Branch XR CHEST 1 VW 2021-05-09 21:45:33 Leon Mills [facility] URINALYSIS 2021-05-09 21:40:00 Leon [facility] URINE CULTURE 2021-05-09 21:40:00 [facility] ABG+COOX+NA+K+GLU+CA2+ 2021-05-09 21:23:00 Leon Mills [facility] COVID-19 (ID NOW RAPID 2021-05-09 20:55:00 Leon Mills [facility] [place] [facility] TESTING) Medical Branch LAB ONLY COVID 2021-05-09 20:55:00 Leon Mills [facility] HB ECG ROUTINE & RHYTHM 2021-05-09 20:52:51 Leon Mills [facility] BLOOD CULTURE SCREEN 2021-05-09 20:50:[address] [facility] BLOOD CULTURE WORKUP 2021-05-09 20:50:[address] [facility] GRAM POSITIVE BLOOD 2021-05-09 20:50:00 Leon Mills [facility] PATHOGENS DNA [facility] PROBE-ANAEROBIC MAGNESIUM 2021-05-09 20:49:00 [facility] COMP. METABOLIC PANEL 2021-05-09 20:49:00 Leon Mills [facility] ([id number]) Medical Branch ETHANOL 2021-05-09 20:49:00 [facility] CBC WITH DIFF 2021-05-09 20:49:00 [facility] PROTHROMBIN TIME / INR 2021-05-09 20:49:00 Leon Mills [facility] LACTIC ACID WHOLE BLOOD 2021-05-09 20:49:00 Leon Mills [facility] BLOOD CULTURE SCREEN 2021-05-09 20:35:00 Leon Mills [facility] EMERGENCY DEPARTMENT 2021-05-09 06:01:00 Doctor Unassigned, [facility] DOCUMENTS [facility] EMERGENCY SERVICES 2021-05-09 06:01:00 Doctor Unassigned, [facility] AGREEMENTS AND [facility] AUTHORIZATIONS MAGNESIUM 2021-01-12 10:56:00 [facility] BASIC METABOLIC PANEL 2021-01-12 10:56:00 Geoff Breen [facility] (NA, K, CL, CO2, GLUCOSE, Medica l Branch BUN, CREATININE, CA) PHOSPHORUS 2021-01-11 10:25:00 Simone, [facility] ALBUMIN 2021-01-11 10:25:00 Simone [facility] MAGNESIUM 2021-01-11 10:25:00 [facility] BASIC METABOLIC PANEL 2021-01-11 10:25:00 Geoff Breen [facility] (NA, K, CL, CO2, GLUCOSE, Medica l Branch BUN, CREATININE, CA) VANCOMYCIN TROUGH 2021-01-11 10:25:00 Camila Arechiga [facility] CBC WITH DIFF 2021-01-11 10:25:00 [facility] MAGNESIUM 2021-01-10 15:13:00 Simone, [facility] RENAL PANEL 2021-01-10 15:13:00 Simone, [facility] BASIC METABOLIC PANEL 2021-01-10 15:13:00 Geoff Breen [facility] (NA, K, CL, CO2, GLUCOSE, Medica l Branch BUN, CREATININE, CA) CBC WITH DIFF 2021-01-10 10:58:00 Simone, [facility] PHOSPHORUS 2021-01-09 10:31:00 [facility] MAGNESIUM 2021-01-09 10:31:00 [facility] BASIC METABOLIC PANEL 2021-01-09 10:31:00 Jerry Taylor [facility] (NA, K, CL, CO2, GLUCOSE, Medica l Branch BUN, CREATININE, CA) CBC WITH DIFF 2021-01-09 10:31:00 Claudia [facility] N-TERMINAL PRO-BNP 2021-01-09 10:31:00 Jerry Taylor [facility] FECAL PATHOGENS BY PCR 2021-01-07 23:54:00 Jerry Taylor [facility] VANCOMYCIN TROUGH 2021-01-07 15:43:00 Camila Arechiga [facility] BLOOD CULTURE SCREEN 2021-01-07 15:40:[address] [facility] PHOSPHORUS 2021-01-07 11:39:00 Claud[facility] MAGNESIUM 2021-01-07 11:39:00 Claud[facility] COMP. METABOLIC PANEL 2021-01-07 11:39:00 Pete Pappas [facility] ([id number] N-TERMINAL PRO-BNP 2021-01-07 11:39:00 Mian hola [facility] BLOOD CULTURE SCREEN 2021-01-07 11:38:[address] [facility] PHOSPHORUS 2021-01-06 10:23:00 [facility] MAGNESIUM 2021-01-06 10:23:00 [facility] TROPONIN I 2021-01-06 10:23:00 Ashish Arenas [facility] COMP. METABOLIC PANEL 2021-01-06 10:23:00 Pete Pappas [facility] ([id number]) [facility] CBC WITH DIFF 2021-01-06 10:23:00 Mian [facility] N-TERMINAL PRO-BNP 2021-01-06 10:23:00 Mian hola [facility] VITAMIN B1 (THIAMINE), 2021-01-05 20:33:00 Brigette Nichols [facility] MAGNESIUM 2021-01-05 20:07:00 [facility]EL 2021-01-05 20:07:00 Simone [facility] TRANSTHORACIC ECHO (TTE) 2021-01-05 15:12:00 Pete Pappas [facility] COMPLETE W/ CONTRAST Medical [facility] CAROTID DUPLEX BILATERAL 2021-01-05 14:03:00 Ashish Arenas [facility] - BY VASCULAR LAB [facility] CLOSTRIDIUM DIFFICILE 2021-01-05 13:17:00 Jerry Taylor [facility] TOXIN [facility] PHOSPHORUS 2021-01-05 11:07:00 Mian hola [facility] MAGNESIUM 2021-01-05 11:07:00 Mian [facility] FERRITIN SERUM 2021-01-05 11:07:00 Mian [facility] CORTISOL AM 2021-01-05 11:07:00 Mian hola [facility] TROPONIN I 2021-01-05 11:07:00 Mian hola [facility] COMP. METABOLIC PANEL 2021-01-05 11:07:00 Pete Pappas [facility] ([id number]) [facility] LIPID PANEL ([id number])(TOTAL 2021-01-05 11:07:[address] [facility] CHOLESTEROL, [facility] TRIGLYCERIDES, HDL) IRON PANEL 2021-01-05 11:07:00 Pete Pappas [facility] ACUTE CARE VENOUS BLOOD 2021-01-05 11:07:00 Pete Pappas [facility] GAS [facility] CBC WITH DIFF 2021-01-05 11:07:00 Mian hola [facility] N-TERMINAL PRO-BNP 2021-01-05 11:07:00 Pete Pappas [facility] OSMOLALITY, SERUM OR 2021-01-05 05:47:00 Pete Pappas [facility] PLASMA [facility] VITAMIN B12, LEVEL 2021-01-05 05:47:00 Pete Pappas [facility] FOLATE 2021-01-05 05:47:00 Mian hola [facility] IONIZED CALCIUM 2021-01-05 05:47:00 Mian hola [facility] C-REACTIVE PROTEIN 2021-01-05 05:47:00 Pete Pappas [facility] FREE T4 2021-01-05 05:47:00 Mian hola [facility] INTACT PTH CALCIUM GROUP 2021-01-05 05:47:00 Pete Pappas [facility] PROTHROMBIN TIME / INR 2021-01-05 05:47:00 Pete Pappas [facility] D-DIMER 2021-01-05 05:47:00 Mian hola [facility] VITAMIN D, 25-OH 2021-01-05 05:47:00 Mian hola [facility] FREE T3 2021-01-05 05:47:00 Mian hola [facility] HIV 1/2 AG-AB WITH REFLEX 2021-01-05 05:47:00 Pete Pappas [facility] PREALBUMIN, SERUM 2021-01-05 05:46:00 Mian [facility] LACTATE DEHYDROGENASE 2021-01-05 05:46:00 Mian hola [facility] TROPONIN I 2021-01-05 05:46:00 Mian hola [facility] BASIC METABOLIC PANEL 2021-01-05 05:46:00 Pete Pappas [facility] (NA, K, CL, CO2, GLUCOSE, Medica l Branch BUN, CREATININE, CA) SEDIMENTATION RATE 2021-01-05 05:46:00 Pete Pappas [facility] HEPATITIS B SURFACE 2021-01-05 05:46:00 Pete Pappas [facility] ANTIBODY [facility] HEPATITIS B SURFACE 2021-01-05 05:46:00 Mian hola [facility] ANTIGEN [facility] HCV ANTIBODY 2021-01-05 05:46:00 Mian [facility] HEPATITIS C VIRUS (HCV) 2021-01-05 05:46:00 Pete Pappas [facility] BY QUANTITATIVE NAAT [facility] PROCALCITONIN 2021-01-05 05:46:00 Pete Pappas [facility] VITAMIN B1, PLASMA 2021-01-05 05:45:00 Pete Pappas [facility] OSMOLALITY URINE 2021-01-05 05:35:00 Pete Pappas [facility] SODIUM, URINE RANDOM 2021-01-05 05:35:[address] [facility] PROTEIN CREAT RATIO URINE 2021-01-05 05:35:00 Pete Pappas [facility] RESPIRATORY PANEL BY PCR 2021-01-05 05:33:00 Pete Pappas [facility] XR FOOT 3+ VW BILATERAL 2021-01-05 04:45:57 Pete Pappas [facility] AC PANEL 20 + LACTIC ACID 2021-01-05 03:45:00 Pete Pappas [facility] ABORH CONFIRMATION (LAB 2021-01-05 00:15:00 [facility]able [facility] CONTRAST 2021-01-04 23:20:04 Mable Faust [facility] URINALYSIS 2021-01-04 22:48:00 Mable [facility] URINE CULTURE 2021-01-04 22:48:00 Mable [facility] URINE DRUG (IMMUNOASSAY) 2021-01-04 22:46:00 Mable Faust [facility] SCREEN XR CHEST 1 VW 2021-01-04 22:45:35 Mable [facility] LACTIC ACID WHOLE BLOOD 2021-01-04 22:27:00 Mable Faust [facility] HB ABO GROUPING 2021-01-04 22:22:00 Mable [facility] LACTIC ACID WHOLE BLOOD 2021-01-04 22:14:00 Mable Faust [facility] RAPID INFLUENZA A/B 2021-01-04 22:12:00 Mable Faust [facility] COVID-19 (ID NOW RAPID 2021-01-04 22:12:00 Mable Faust [facility] TESTING) [facility] LAB ONLY COVID 2021-01-04 22:12:00 Mable Faust [facility] BLOOD CULTURE SCREEN 2021-01-04 22:11:[address] [facility] CREATINE KINASE 2021-01-04 22:11:00 [facility] TROPONIN I 2021-01-04 22:11:00 Mable [facility] THYROID STIMULATING 2021-01-04 22:11:00 Jerry [facility] HORMONE [facility] COMP. METABOLIC PANEL 2021-01-04 22:11:00 Mable Faust [facility] ([id number]) [facility] ETHANOL 2021-01-04 22:11:00 Mable [facility] DIFF CONSULT 2021-01-04 22:11:00 Pete Pappas [facility] CBC WITH DIFF 2021-01-04 22:11:00 Mable [facility] GLYCOSYLATED HEMOGLOBIN 2021-01-04 22:11:00 Pete Pappas [facility] (A1C) [facility] BLOOD CULTURE WORKUP 2021-01-04 22:11:[address] [facility] GRAM POSITIVE BLOOD 2021-01-04 22:11:00 Mable Faust [facility] PATHOGENS DNA [facility] PROBE-AEROBIC EKG-12 LEAD 2021-01-04 21:39:36 [facility] HOSPITAL ADM - MISC 2021-01-04 05:01:00 Doctor Unassigned, [facility] [id number] 2020-01-31 00:00:00 CARLOSCH.Allie [facility] Encounters Start End Encounter Admission Attending Care Care Encounter Source Date/Time Date/Time Type Type Clinicians Facility Department ID 2021-01-04 Inpatient X CLAUDIA [facility] [id number] Univers 16:36:00 JERRY itmiki [facility] 2021-05-09 2021-05-17 Inpatient X ADOLFO [facility] JIMMY [id number] Univers 14:36:00 18:08:00 MECHE ity [facility] 2021-05-09 2021-05-17 [facility] Leon Mills [facility] 1.2.840.1 [id number] Univers 14:36:00 18:08:00 Encounter Jamshid Geoff SUDARSHAN 350.1.13.10 ity of [place] KRISTINA 4.2.7.[address] [facility] [id number] [facility] 080 Branch 2021-01-29 2021-01-29 Patient Morenita Traylor JESSICA 1.2.840.114 [id number] Univers 00:00:00 00:00:00 Outreach E MIRANDA 350.1.13.10 [place] [place] [id number] [facility] 403 Branch 2021-01-18 2021-01-18 Patient Gail, JESSICA 1.2.840.114 [id number] Univers 00:00:00 00:00:00 Outreach Nicholas W MIRANDA 350.1.13.10 [place] [place] [id number] [facility] 403 Branch 2021-01-17 2021-01-17 Transition JESSICA Alves 1.2.840.114 [id number] Univers 00:00:00 00:00:00 of Care Emily MIRANDA 350.1.13.10 [place] [place] [id number] [facility] 403 Branch 2021-01-16 2021-01-16 Transition JESSICA Alves 1.2.840.114 [id number] Univers 00:00:00 00:00:00 of Care Emily MIRANDA 350.1.13.10 [place] [place] [id number] [facility] 403 Branch 2021-01-04 2021-01-12 Inpatient X CLAUDIA [facility] [id number] Univers 16:36:00 21:07:00 JERRY ity of [facility] 2021-01-04 2021-01-12 Hospital Mable Faust [facility] 1.2.840.11 [id number] Univers 16:36:00 21:07:00 Encounter Eloymercedes Jerry SUDARSHAN 350.1.13.10 ity of [place] 4.2.7.2.686 [facility] [id number] [facility] 080 Branch 2021-01-12 2021-01-12 Patient Morenita Traylor 1.2.840.114 [id number] Univers 00:00:00 00:00:00 Outreach E MIRANDA 350.1.13.10 i ty of [place] 4.2.7.2.686 [facility] [id number] [facility] 403 Branch 2020-01-21 2020-03-14 Inpatient HCAMN IRVING [id number] [facility] 10:27:00 22:27:32 57 [facility] 2020-02-21 2020-02-21 Outpatient ROSARIO Myers [facility] [id number] [facility] 15:12:00 15:12:00 [facility] 2020-02-01 2020-02-01 Outpatient [facility] HCACL LABO G00 [id number] [facility] 00:17:00 00:17:00 Gilmer cannon Clear [facility] 2020-01-13 2020-01-15 Emergency Tom Robb 1.2.84 0.114 [id number] Univers 14:26:00 17:00:00 Tico Premal G Kal 350.1.13.10 ity of Anne Tellez [facility] 4.2.7.2. 686 Dexter Mendenhall [id number] Medical 095 Branch 2020-01-13 2020-01-15 Emergency BehTom teixeirae 1.2.84 0.114 [id number] 14:26:00 17:00:00 Doshi, Premal [place] 350.1.13.10 [facility] 4.2.7.2. 686 Dexter Rutledge [id number] 2020-01-13 2020-01-13 Emergency X SHENA [facility] ERT [id number] Univers 14:26:00 14:26:00 TOMRICA ascencio [facility] 2020-01-06 2020-01-06 Transition Jessica Alves 1.2.840.114 [id number] 00:00:00 00:00:00 of Care Emily Miranda 350.1.13.10 [place] 4.2.7.2.686 [id number] 403 2020-01-06 2020-01-06 Transition Jessica Alves 1.2.840.114 [id number] Univers 00:00:00 00:00:00 of Care Emily Miranda 350.1.13.10 ity of [place] 4.2.7.2.686 [facility] [id number] [facility] 403 Branch 2019-12-30 2020-01-05 [facility] Nicholas Cruz 1.2.840 .114 [id number] 10:18:00 18:34:00 Encounter [place] 350.1.13.10 [facility] 4.2.7.2. 686 [id number] 099 2019-12-30 2020-01-05 [facility] Nicholas Cruz 1.2.840 .114 [id number] [facility] 10:18:00 18:34:00 Encounter [place] 350.1.13.10 ity of [facility] 4.2.7.2. [address] [place] [id number] [facility] 099 Branch 2019-12-30 2019-12-30 [facility] [id number] Univers 10:18:00 10:18:00 NICHOLAS ascencio [facility] 2019-12-30 2019-12-30 Emergency Ross, TRAUMA 1.2.185.053 [id number] 00:11:00 00:47:00 Judah MENJIVAR 350.1.13.10 4.2.7.2.686 [id number] 014 2019-12-30 2019-12-30 Emergency Ross, [place] 1.2.988.409 [id number] Univers 00:11:00 00:47:00 Judah MENJIVAR 350.1.13.10 [id number] [address] 2019-12-30 2019-12-30 Emergency X MADALYN, [facility] ERT [id number] Univers 00:11:00 00:11:00 JUDAH ity of [facility] 2019-12-29 2019-12-29 Emergency Isauro, TRAUMA 1.2.337.468 [id number] 18:34:00 21:29:00 Anum R CENTER 350.1.13.10 4.2.7.2.686 [id number] 2019-12-29 2019-12-29 Emergency Isauro, TRAUMA 1.2.500.524 [id number] Univers 18:34:00 21:29:00 Anum R CENTER 350.1.13.10 [id number] [address] 2019-12-29 2019-12-29 Emergency X [facility] ERT [id number] Univers 18:27:00 18:27:00 ity of [facility] 2019-12-29 2019-12-29 Emergency Ross, TRAUMA 1.2.230.818 [id number] 00:12:00 02:43:00 Judah L CENTER 350.1.13.10 4.2.7.2.686 [id number] 014 2019-12-29 2019-12-29 Emergency Ross, TRAUMA 1.2.658.383 [id number] Univers 00:12:00 02:43:00 Judah L CENTER 350.1.13.10 [place] [id number] [address] 2019-12-29 2019-12-29 Emergency [facility] [id number] Univers 00:12:00 00:12:00 JUDAH ity of [facility] 2019-12-16 2019-12-16 Telephone [facility] 1.2.840.114 [id number] 00:00:00 00:00:00 Zoran PRIMARY 350.1.13.10 CARE 4.2.7.2.686 PAVILLION [id number] 2019-12-16 2019-12-16 Telephone [facility] 1.2.840.114 [id number] Univers 00:00:00 00:00:00 Zoran PRIMARY 350.1.13.10 it y of [place] [id number] [facility] 389 Branch 2019-12-10 2019-12-10 Emergency Dang Benavidez TRAUMA 1.2. 840.114 [id number] 09:47:00 14:43:00 Belen Stark CENTER 350.1.13.10 4.2.7.2.686 [id number] 014 2019-12-10 2019-12-10 Emergency Dang Benavidez TRAUMA 1.2. 840.114 [id number] Univers 09:47:00 14:43:00 Belen Stark 350.1.13.10 [place] [place] [id number] [facility] 014 Branch 2019-12-10 2019-12-10 Emergency X [facility] ERT [id number] Univers 09:47:00 09:47:00 BELEN ascencio [facility] 2019-12-06 2019-12-06 Transition Jessica Alves 1.2.840.114 [id number] 00:00:00 00:00:00 of Care Emily Miranda 350.1.13.10 [place] 4.2.7.2.686 [id number] 403 2019-12-06 2019-12-06 Transition Jessica Alves 1.2.840.114 [id number] Univers 00:00:00 00:00:00 of Care Emily Miranda 350.1.13.10 ity of [place] [place] [id number] [facility] 403 Branch 2019-12-03 2019-12-04 [facility] Belen Stark 1.2.840. 114 [id number] 12:42:00 15:12:00 Encounter MicktimothyJemma wardboris Bowden 350. 1.13.10 [facility] 4.2.7.2.686 Marylou Borrego [id number] 2019-12-03 2019-12-04 [facility] Mi Belen Cruz 1.2.840. 114 [id number] [facility] 12:42:00 15:12:00 Encounter Jemma Oliviery 350. 1.13.10 ity of [facility] 4.2.7.2.686 [facility] Marylou Gordon [id number] [address] 2019-12-03 2019-12-03 Emergency X [facility] ERT [id number] Univers 12:42:00 12:42:00 BELEN ascencio [facility] 2019-12-03 2019-12-03 Transition Jessica Darby 1.2.840.114 [id number] 00:00:00 00:00:00 of Care Lucille Miranda 350.1.13.10 [place] 4.2.7.2.686 [id number] [facility] 2019-12-03 2019-12-03 Transition Jessica Darby 1.2.840.114 [id number] [facility] 00:00:00 00:00:00 of Care Lucille Miranda 350.1.13.10 it y of [place] 4.2.7.2.686 [facility] [id number] [address] 2019-11-30 2019-12-02 [facility] Umu Nielson 1.2. 840.114 [id number] 06:04:00 14:20:00 Encounter Odilon Zaragoza 350.1.13.10 [facility] 4.2.7.2.686 [id number] [facility] 2019-11-30 2019-12-02 [facility] Umu Nielson 1.2. 840.114 [id number] [facility] 06:04:00 14:20:00 Encounter Odilon Zaragoza 350.1.13.10 ity of [facility] 4.2.7.2.[address] [place] [id number] [facility] 099 Branch 2019-11-30 2019-11-30 Emergency X NAGA [facility] ERT [id number] Univers 06:04:00 06:04:00 UMU ascencio of [facility] 2019-10-13 2019-10-13 Transition Jessica Alves 1.2.840.114 [id number] 00:00:00 00:00:00 of Care Emily Miranda 350.1.13.10 [place] 4.2.7.2.686 [id number] 403 2019-10-13 2019-10-13 Transition Jessica Alves 1.2.840.114 [id number] [facility] 00:00:00 00:00:00 of Care Emily Miranda 350.1.13.10 ity of [place] 4.2.7.2.686 [facility] [id number] [facility] 403 [place] 2019-10-10 2019-10-12 [facility] Umu Nielson 1.2. 840.114 [id number] 18:56:00 10:20:00 Encounter Anne Tellez 350.1 .13.10 [facility] 4.2.7.2.686 [id number] [facility] 2019-10-10 2019-10-12 [facility] Umu Nielson 1.2. 840.114 [id number] [facility] 18:56:00 10:20:00 Encounter Anne Tellez 350.1 .13.10 ity of [facility] 4.2.7.2.686 [place] [id number] [place] [id number] [place] 2019-10-10 2019-10-10 Emergency X NAGA [facility] ERT [id number] Univers 18:56:00 18:56:00 UMU ascencio of [facility] Results Test Description Test Time Test Comments Results Result Comments Source BLOOD CULTURE SCREEN 2021-05-16 12:01:28 Test Item Value Reference Range Interpretation Comme nts Blood Culture-Aerobic (test No organisms isolated No growth Previous preliminary code = 87397-0) verified res ult was Culture In Prog ress on 05/11/2021 at 09 01 CSTPrevious pre liminary verified result was No growth at 24 ho urs on 05/12/2021 at 06 01 CSTPrevious pre liminary verified result was No growth at 48 ho urs on 05/13/2021 at 07 01 CDTPrevious pre liminary verified result was No growth at 72 ho urs on 05/14/2021 at 07 01 CDT Blood Culture-Anaerobic No organisms isolated No growth Previous preliminary (test code = 70423-4) verifi ed result was Culture In Prog ress on 05/11/2021 at 09 01 CSTPrevious pre liminary verified result was No growth at 24 ho urs on 05/12/2021 at 06 01 CSTPrevious pre liminary verified result was No growth at 48 ho urs on 05/13/2021 at 07 01 CDTPrevious pre liminary verified result was No growth at 72 ho urs on 05/14/2021 at 07 01 CDT Lab Interpretation (test Normal code = 96051-4) [facility] [id number] 12:01:28 Test Item Value Reference Range Interpretation Comments Blood Culture-Aerobic No organisms No growth Previo us (test code = 77202-8) isolated prelim inary verified result was Culture In Progress on 05/11/2021 at 09 01 CSTPrevious preliminary verified result was No growth a t 24 hours on 05/12/2021 at 06 01 CSTPrevious preliminary verified result was No growth a t 48 hours on 05/13/2021 at 07 01 CDTPrevious preliminary verified result was No growth a t 72 hours on 05/14/2021 at 07 01 CDT Blood No organisms No growth Previous Culture-Anaerobic isolated preliminar y (test code = 44034-5) verifi ed result was Culture In Progress on 05/11/2021 at 09 01 CSTPrevious preliminary verified result was No growth a t 24 hours on 05/12/2021 at 06 01 CSTPrevious preliminary verified result was No growth a t 48 hours on 05/13/2021 at 07 01 CDTPrevious preliminary verified result was No growth a t 72 hours on 05/14/2021 at 07 01 CDT Lab Interpretation Normal (test code = 92132-1) [facility] METABOLIC PANEL (NA, K, CL, CO2, GLUCOSE, BUN, CREATININE, CA)2021-05-16 11:20:32 Test Item Value Reference Range Interpretation Comments NA (test code = 131 mmol/L 135-145 L 5868878444) K (test code = 4.6 mmol/L 3.5-5.0 1391640985) CL (test code = 98 mmol/L 98-108 3451448710) CO2 TOTAL (test code = 27 mmol/L 23-31 2623379092) AGAP (test code = 2-16 3503790446) BUN (test code = 15 mg/dL 7-23 4657043522) GLUCOSE (test code = 94 mg/dL 70-110 8083791389) CREATININE (test code = 0.59 mg/dL 0.60-1.25 L 8085669242) CALCIUM (test code = 8.2 mg/dL 8.6-10.6 L 7922552519) eGFR (test code = mL/min/1.73m2 4141409777) RANDA (test code = RANDA) Association of Glomerular Filtration Rate (GFR) and Staging of Kidney Disease* + --+ --+ ------+| GFR (mL/min/1.73 m2) ?| With Kidney Damage ?| ?Without Kidney Damage+ --------+ --------+ +| ?>90 ?| ?Stage one ?| ? Normal ?+ ---+ ---+ -------+| ?60-89 ?| ?Stage two ?| ? Decreased GFR ? + --+ --+ ------+| ?30-59 ?| ?Stage three ?| ? Stage three ? + --+ --+ ------+| ?15-29 ?| ?Stage four ? | ? Stage four ?+ ---+ ---+ -------+| ?<15 (or dialysis) ? ?| ?Stage five ? | ? Stage five ?+ ---+ ---+ -------+ *Each stage assumes the associated GFR level has been in effect for at least three months. ?Stages 1 to 5, with or without kidney disease, indicate chronic kidney disease. Notes: Determination of stages one and two (with eGFR >59mL/min/1.73 m2) requires estimation of kidney damage for at least three months as defined by structural or functional abnormalities of the kidney, manifested by either:Pathological abnormalities or Markers of kidney damage (including abnormalities in the composition of the blood or urine or abnormalities in imaging tests). Lab Interpretation Abnormal (test code = 02109-0) [facility] 11:20:32 Test Item Value Reference Range Interpretation Comments MAGNESIUM (test code = 7663780627) 2.2 mg/dL 1.7-2.4 Lab Interpretation (test code = Normal 72304-8) [facility] ([facility]E)2021-05-16 01:08:46 Test Item Value Reference Range Interpretation Comments LVIDD (test code = 5.00 cm 9680643374) IVS (test code = 0.81 cm 1617769044) Interventricular Septum 0.81 cm Diastolic Thickness by 2D (test code = 7866983) LVPWD (test code = 0.85 cm 4259187930) PW (test code = 0.85 cm 0.6-1.6 1205953878) EF(Teich) (test code = 68.30 % 5180393384) LVIDS (test code = 3.10 cm 6912947283) FS (test code = 38 % 0152928442) EF - 2D (test code = 68.30 % 09048859) LVOT diameter (test code 2.08 cm = 1809091748) ACS (test code = 1.52 cm 9066939103) Ao root annulus (test 3.4 cm code = 6566694497) Ao root diam (test code = 3.40 cm 4757087867) Aortic root (test code = 3.4 cm 6181143063) LA size (test code = 3.6 cm 7895933327) E wave decelartion time 0.34 s (test code = 9069517543) MV Peak E Jarrod (test code 54.0 cm/s = 8434114352) MV Peak A Jarrod (test code 76.6 cm/s = 1067759989) E/A ratio (test code = ratio 6396670904) TR Peak Jarrod (test code = 228.1 cm/s 9109220711) Triscuspid Valve mmHg Regurgitation Peak Gradient (test code = 4948132519) Radiology Study observation (narrative) (test code = 40431-6) RANDA (test code = RANDA) ?Left?Ventricle: Left ventricle is normal in size and function. Normal wall thickness. Normal wall motion. Normal systolic function with a visually estimated EF of 60 - 65%. There is impaired relaxation. ?Tricuspid?Valve: Right ventricular systolic pressure is normal. ?IVC/SVC: IVC normal in size and respiratory variation. ?Pericardium: Trivial pericardial effusion present. VitalsHeight Weight BSA (Calculated - sq m) BP Pulse 5' 10" (1.778 m) 100 lb (45.4 kg) 1.5 sq meters 108/73 71 [facility] IRON BINDING [id number] 11:38:57 Test Item Value Reference Range Interpretation Comments TIBC (test code = 0041669118) 214 ug/dL 250-410 L % FE SAT (test code = 4973457487) 10 % 20-50 L Lab Interpretation (test code = Abnormal 30673-2) [facility] WITH [id number] 11:35:25 Test Item Value Reference Range Interpretation Comments WBC (test code = See_Comment [Automated 6690-2) message] The sy stem which generated this result transmitted reference range : 4.20 - 10.70 10*3/?L. The reference range was not used to interpret this result as normal/abnormal . RBC (test code = See_Comment L [Automated 879-8) message] The sy stem which generated this result transmitted reference range : 4.26 - 5.52 10*6/?L. The reference range was not used to interpret this result as normal/abnormal . HGB (test code = 10.5 g/dL 12.2-16.4 L 718-7) HCT (test code = 31.7 % 38.4-49.3 L 4544-3) MCV (test code = 99.7 fL 81.7-95.6 H 787-2) MCH (test code = 33.0 pg 26.1-32.7 H 785-6) MCHC (test code = 33.1 g/dL 31.2-35.0 786-4) RDW-SD (test code = 52.6 fL 38.5-51.6 H 01581-5) RDW-CV (test code = 14.5 % 12.1-15.4 788-0) PLT (test code = See_Comment [Automated 777-3) message] The sy stem which generated this result transmitted reference range : 150 - 328 10*3/ ?L. The reference r harris was not used to interpret this result as normal/abnormal . MPV (test code = 11.7 fL 9.8-13.0 46574-8) NRBC/100 WBC (test See_Comment [Automat ed code = 1110584494) message] The system which generated this result transmitted reference range : 0.0 - 10.0 /100 WBCs. The refer ence range was not u sed to interpret th is result as normal/abnormal . NRBC x10^3 (test code <0.01 See_Comment [Auto mated = 1019783559) message] The s ystem which generated this result transmitted reference range : 10*3/?L. The reference range was not used to interpret this result as normal/abnormal . GRAN MAT (NEUT) % 63.2 % (test code = 770-8) IMM GRAN % (test code 2.10 % = 1330257449) LYMPH % (test code = 18.2 % 736-9) MONO % (test code = 12.9 % 5905-5) EOS % (test code = 2.9 % 713-8) BASO % (test code = 0.7 % 706-2) GRAN MAT x10^3(ANC) 5.63 10*3/uL 1.99-6.95 (test code = 0803887889) IMM GRAN x10^3 (test 0.19 10*3/uL 0.00-0.06 H code = 2083765800) LYMPH x10^3 (test code 1.62 10*3/uL 1.09-3.23 = 731-0) MONO x10^3 (test code 1.15 10*3/uL 0.36-1.02 H = 742-7) EOS x10^3 (test code = 0.26 10*3/uL 0.06-0.53 711-2) BASO x10^3 (test code 0.06 10*3/uL 0.01-0.09 = 704-7) REACT LYMPHS (test Rare code = 8317118786) Lab Interpretation Abnormal (test code = 67393-9) [id number] 11:35:15 Test Item Value Reference Range Interpretation Comments RETIC Count Automated 2.97 % 0.59-2.24 H (test code = 9589618883) RETIC Absolute Count See_Comment [Autom ated message] (test code = 2507635337) The system which generated this result transmitted ref erence range: 0.0260 - 0.1170 10*6/?L. The reference range was not used to int erpret this result as normal/abnormal . IRF % (test code = 25.80 % 2.00-19.10 H 7308754134) RETIC-HE (test code = 38.7 pg 27.3-36.4 H 9188417769) Lab Interpretation (test Abnormal code = 80913-6) [facility] 11:30:17 Test Item Value Reference Range Interpretation Comments MAGNESIUM (test code = 7782125912) 1.4 mg/dL 1.7-2.4 L Lab Interpretation (test code = Abnormal 96538-7) [facility] (NA, K, CL, CO2, GLUCOSE, BUN, CREATININE, CA)2021-05-15 11:29:57 Test Item Value Reference Range Interpretation Comments NA (test code = 132 mmol/L 135-145 L 9824824725) K (test code = 4.9 mmol/L 3.5-5.0 5893244924) CL (test code = 98 mmol/L 98-108 7232851811) CO2 TOTAL (test code = 27 mmol/L 23-31 3156313181) AGAP (test code = 2-16 1318813677) BUN (test code = 12 mg/dL 7-23 1421647973) GLUCOSE (test code = 90 mg/dL 70-110 3169989650) CREATININE (test code = 0.57 mg/dL 0.60-1.25 L 2776994210) CALCIUM (test code = 8.2 mg/dL 8.6-10.6 L 1522504516) eGFR (test code = mL/min/1.73m2 7417958220) RANDA (test code = RANDA) Association of Glomerular Filtration Rate (GFR) and Staging of Kidney Disease* + --+ --+ ------+| GFR (mL/min/1.73 m2) ?| With Kidney Damage ?| ?Without Kidney Damage+ --------+ --------+ +| ?>90 ?| ?Stage one ?| ? Normal ?+ ---+ ---+ -------+| ?60-89 ?| ?Stage two ?| ? Decreased GFR ? + --+ --+ ------+| ?30-59 ?| ?Stage three ?| ? Stage three ? + --+ --+ ------+| ?15-29 ?| ?Stage four ? | ? Stage four ?+ ---+ ---+ -------+| ?<15 (or dialysis) ? ?| ?Stage five ? | ? Stage five ?+ ---+ ---+ -------+ *Each stage assumes the associated GFR level has been in effect for at least three months. ?Stages 1 to 5, with or without kidney disease, indicate chronic kidney disease. Notes: Determination of stages one and two (with eGFR >59mL/min/1.73 m2) requires estimation of kidney damage for at least three months as defined by structural or functional abnormalities of the kidney, manifested by either:Pathological abnormalities or Markers of kidney damage (including abnormalities in the composition of the blood or urine or abnormalities in imaging tests). Lab Interpretation Abnormal (test code = 74861-2) [facility] 11:29:17 Test Item Value Reference Range Interpretation Comments IRON (test code = 0103863262) 22 ug/dL 50-160 L Lab Interpretation (test code = Abnormal 57809-3) [facility] [id number] 21:03:26 Test Item Value Reference Range Interpretation Comments Blood Culture-Aerobic No organisms No growth Previo us (test code = 50039-5) isolated prelim inary verified result was Culture In Progress on 05/09/2021 at 180 1 CSTPrevious preliminary verified result was No growth a t 24 hours on 05/10/2021 at 15 01 CSTPrevious preliminary verified result was No growth a t 48 hours on 05/11/2021 at 15 01 CSTPrevious preliminary verified result was No growth a t 72 hours on 05/12/2021 at 15 01 [employer] Blood No organisms No growth Previous Culture-Anaerobic isolated preliminar y (test code = 31118-5) verifi ed result was Culture In Progress on 05/09/2021 at 180 1 CSTPrevious preliminary verified result was No growth a t 24 hours on 05/10/2021 at 15 01 CSTPrevious preliminary verified result was No growth a t 48 hours on 05/11/2021 at 15 01 CSTPrevious preliminary verified result was No growth a t 72 hours on 05/12/2021 at 15 01 [employer] Lab Interpretation Normal (test code = 76756-2) [facility] 10:35:19 Test Item Value Reference Range Interpretation Comments MAGNESIUM (test code = 6265370938) 1.8 mg/dL 1.7-2.4 Lab Interpretation (test code = Normal 34460-9) [facility] (NA, K, CL, CO2, GLUCOSE, BUN, CREATININE, CA)2021-05-14 10:35:04 Test Item Value Reference Range Interpretation Comments NA (test code = 129 mmol/L 135-145 L 7241565626) K (test code = 4.9 mmol/L 3.5-5.0 5436613747) CL (test code = 97 mmol/L 98-108 L 1149247557) CO2 TOTAL (test code = 28 mmol/L 23-31 9649274051) AGAP (test code = 2-16 9001479330) BUN (test code = 12 mg/dL 7-23 5399131039) GLUCOSE (test code = 106 mg/dL 70-110 9234852274) CREATININE (test code = 0.56 mg/dL 0.60-1.25 L 3052030494) CALCIUM (test code = 7.5 mg/dL 8.6-10.6 L 0055204581) eGFR (test code = mL/min/1.73m2 1631271577) RANDA (test code = RANDA) Association of Glomerular Filtration Rate (GFR) and Staging of Kidney Disease* + --+ --+ ------+| GFR (mL/min/1.73 m2) ?| With Kidney Damage ?| ?Without Kidney Damage+ --------+ --------+ +| ?>90 ?| ?Stage one ?| ? Normal ?+ ---+ ---+ -------+| ?60-89 ?| ?Stage two ?| ? Decreased GFR ? + --+ --+ ------+| ?30-59 ?| ?Stage three ?| ? Stage three ? + --+ --+ ------+| ?15-29 ?| ?Stage four ? | ? Stage four ?+ ---+ ---+ -------+| ?<15 (or dialysis) ? ?| ?Stage five ? | ? Stage five ?+ ---+ ---+ -------+ *Each stage assumes the associated GFR level has been in effect for at least three months. ?Stages 1 to 5, with or without kidney disease, indicate chronic kidney disease. Notes: Determination of stages one and two (with eGFR >59mL/min/1.73 m2) requires estimation of kidney damage for at least three months as defined by structural or functional abnormalities of the kidney, manifested by either:Pathological abnormalities or Markers of kidney damage (including abnormalities in the composition of the blood or urine or abnormalities in imaging tests). Lab Interpretation Abnormal (test code = 61714-6) [facility] WITH [id number] 10:11:03 Test Item Value Reference Range Interpretation Comments WBC (test code = See_Comment [Automated 8090-2) message] The sy stem which generated this result transmitted reference range : 4.20 - 10.70 10*3/?L. The reference range was not used to interpret this result as normal/abnormal . RBC (test code = See_Comment L [Automated 769-8) message] The sy stem which generated this result transmitted reference range : 4.26 - 5.52 10*6/?L. The reference range was not used to interpret this result as normal/abnormal . HGB (test code = 8.0 g/dL 12.2-16.4 L 718-7) HCT (test code = 23.1 % 38.4-49.3 L 4544-3) MCV (test code = 97.9 fL 81.7-95.6 H 787-2) MCH (test code = 33.9 pg 26.1-32.7 H 785-6) MCHC (test code = 34.6 g/dL 31.2-35.0 786-4) RDW-SD (test code = 50.4 fL 38.5-51.6 62057-0) RDW-CV (test code = 14.2 % 12.1-15.4 788-0) PLT (test code = See_Comment [Automated 777-3) message] The sy stem which generated this result transmitted reference range : 150 - 328 10*3/ ?L. The reference r harris was not used to interpret this result as normal/abnormal . MPV (test code = 11.4 fL 9.8-13.0 18072-0) NRBC/100 WBC (test See_Comment [Automat ed code = 6496800592) message] The system which generated this result transmitted reference range : 0.0 - 10.0 /100 WBCs. The refer ence range was not u sed to interpret th is result as normal/abnormal . NRBC x10^3 (test code <0.01 See_Comment [Auto mated = 9440219654) message] The s ystem which generated this result transmitted reference range : 10*3/?L. The reference range was not used to interpret this result as normal/abnormal . GRAN MAT (NEUT) % 61.6 % (test code = 770-8) IMM GRAN % (test code 1.80 % = 1120595489) LYMPH % (test code = 20.0 % 736-9) MONO % (test code = 12.5 % 5905-5) EOS % (test code = 3.6 % 713-8) BASO % (test code = 0.5 % 706-2) GRAN MAT x10^3(ANC) 6.13 10*3/uL 1.99-6.95 (test code = 3655423859) IMM GRAN x10^3 (test 0.18 10*3/uL 0.00-0.06 H code = 2143951960) LYMPH x10^3 (test code 1.99 10*3/uL 1.09-3.23 = 731-0) MONO x10^3 (test code 1.24 10*3/uL 0.36-1.02 H = 742-7) EOS x10^3 (test code = 0.36 10*3/uL 0.06-0.53 711-2) BASO x10^3 (test code 0.05 10*3/uL 0.01-0.09 = 704-7) Lab Interpretation Abnormal (test code = 70522-3) [facility] 12:32:02 Test Item Value Reference Range Interpretation Comments MAGNESIUM (test code = 1666069105) 1.4 mg/dL 1.7-2.4 L Lab Interpretation (test code = Abnormal 00848-8) [facility] METABOLIC PANEL (NA, K, CL, CO2, GLUCOSE, BUN, CREATININE, CA)2021-05-12 12:31:21 Test Item Value Reference Range Interpretation Comments NA (test code = 133 mmol/L 135-145 L 7068355180) K (test code = 3.2 mmol/L 3.5-5.0 L 4694226140) CL (test code = 103 mmol/L 98-108 9506840232) CO2 TOTAL (test code = 25 mmol/L 23-31 5625306125) AGAP (test code = 2-16 0986383722) BUN (test code = 11 mg/dL 7-23 0513088328) GLUCOSE (test code = 144 mg/dL 70-110 H 2443307753) CREATININE (test code = 0.59 mg/dL 0.60-1.25 L 6242425882) CALCIUM (test code = 6.7 mg/dL 8.6-10.6 L 6491929711) eGFR (test code = mL/min/1.73m2 8498968713) RANDA (test code = RANDA) Association of Glomerular Filtration Rate (GFR) and Staging of Kidney Disease* + --+ --+ ------+| GFR (mL/min/1.73 m2) ?| With Kidney Damage ?| ?Without Kidney Damage+ --------+ --------+ +| ?>90 ?| ?Stage one ?| ? Normal ?+ ---+ ---+ -------+| ?60-89 ?| ?Stage two ?| ? Decreased GFR ? + --+ --+ ------+| ?30-59 ?| ?Stage three ?| ? Stage three ? + --+ --+ ------+| ?15-29 ?| ?Stage four ? | ? Stage four ?+ ---+ ---+ -------+| ?<15 (or dialysis) ? ?| ?Stage five ? | ? Stage five ?+ ---+ ---+ -------+ *Each stage assumes the associated GFR level has been in effect for at least three months. ?Stages 1 to 5, with or without kidney disease, indicate chronic kidney disease. Notes: Determination of stages one and two (with eGFR >59mL/min/1.73 m2) requires estimation of kidney damage for at least three months as defined by structural or functional abnormalities of the kidney, manifested by either:Pathological abnormalities or Markers of kidney damage (including abnormalities in the composition of the blood or urine or abnormalities in imaging tests). Lab Interpretation Abnormal (test code = 53245-1) [facility] [id number] 19:27:24 Test Item Value Reference Range Interpretation Comments Blood Culture-Aerobic Culture positive. No growth AA P revious (test code = 15198-4) See Blood Culture p reliminary Workup for verified result additional was Culture In information. Progress on 05/09/2021 at 180 1 [employer] Blood Culture positive. No growth AA Gram posit antonio Culture-Anaerobic See Blood Culture cocci in (test code = 17688-2) Workup for Anaero bic bottle additional Previous information. preliminary verified result was Culture In Progress on 05/10/2021 at 07 15 [employer] Lab Interpretation Abnormal (test code = 66981-4) [facility] DNA [id number] 18:55:58 Test Item Value Reference Range Interpretation Comments Coagulase Negative Positive Negative, See A Staphylococcus (test Comment/Narrativ code = 57956-3) e Staphylococcus aureus Positive Negative, See A (test code = 77605-4) Comment/Narrativ e RANDA (test code = RANDA) MSSA detected by DNA probe. ?See blood culture result for additional susceptibilityInformati on. Preferred therapies for MSSA ?bacteremia are nafcillin or cefazolin.Infectious Diseases consultation recommended. Please contact the Antimicrobial Stewardship Program with questions.ASP Pager: ?[phone] Testing included eleven identification and three resistance marker targets. Coagulase negative Staphylococcus (CoNS) detected by DNA probe. ?CoNS often contaminate blood cultures from skin colonization during phlebotomy. ?Preferred management is to repeat blood cultures, and monitor off antibiotics. ?Contamination is suggested by culture growth after 48 hours, or growth in single culture (i.e., one of two sets). ?True bacteremia is suggested by the fever, hypotension, and leukocytosis that are not explained by an alternative infection, or indwelling foreign devices that appear infected (catheters, lines, or prostheses). Consider Infectious Diseases consultation if differentiation of CoNS bacteremia from contamination is uncertain. If clinical context suggests true bacteremia, preferred therapy is vancomycin. Please contact the Antimicrobial Stewardship Program with questions.Pager: ?[phone] Testing included eleven identification and three resistance marker targets. See blood culture result for additional information. Testing included eleven identification and three resistancemarker targets. Lab Interpretation Abnormal (test code = 65254-8) [facility] 12:27:29 Test Item Value Reference Range Interpretation Comments MAGNESIUM (test code = 2097048433) 1.2 mg/dL 1.7-2.4 L Lab Interpretation (test code = Abnormal 70708-8) [facility] (NA, K, CL, CO2, GLUCOSE, BUN, CREATININE, CA)2021-05-11 12:27:09 Test Item Value Reference Range Interpretation Comments NA (test code = 138 mmol/L 135-145 7058428323) K (test code = 3.3 mmol/L 3.5-5.0 L 0860150641) CL (test code = 104 mmol/L 98-108 5408279693) CO2 TOTAL (test code = 25 mmol/L 23-31 6360246557) AGAP (test code = 2-16 1687411660) BUN (test code = 15 mg/dL 7-23 9797197051) GLUCOSE (test code = 91 mg/dL 70-110 8268824064) CREATININE (test code = 0.79 mg/dL 0.60-1.25 9538276204) CALCIUM (test code = 7.8 mg/dL 8.6-10.6 L 7302621655) eGFR (test code = mL/min/1.73m2 6405200423) RANDA (test code = RANDA) Association of Glomerular Filtration Rate (GFR) and Staging of Kidney Disease* + --+ --+ ------+| GFR (mL/min/1.73 m2) ?| With Kidney Damage ?| ?Without Kidney Damage+ --------+ --------+ +| ?>90 ?| ?Stage one ?| ? Normal ?+ ---+ ---+ -------+| ?60-89 ?| ?Stage two ?| ? Decreased GFR ? + --+ --+ ------+| ?30-59 ?| ?Stage three ?| ? Stage three ? + --+ --+ ------+| ?15-29 ?| ?Stage four ? | ? Stage four ?+ ---+ ---+ -------+| ?<15 (or dialysis) ? ?| ?Stage five ? | ? Stage five ?+ ---+ ---+ -------+ *Each stage assumes the associated GFR level has been in effect for at least three months. ?Stages 1 to 5, with or without kidney disease, indicate chronic kidney disease. Notes: Determination of stages one and two (with eGFR >59mL/min/1.73 m2) requires estimation of kidney damage for at least three months as defined by structural or functional abnormalities of the kidney, manifested by either:Pathological abnormalities or Markers of kidney damage (including abnormalities in the composition of the blood or urine or abnormalities in imaging tests). Lab Interpretation Abnormal (test code = 13592-6) [facility] 12:27:08 Test Item Value Reference Range Interpretation Comments PHOSPHORUS (test code = 6144334010) 1.9 mg/dL 2.5-5.0 L Lab Interpretation (test code = Abnormal 89862-9) [facility] WITH [id number] 11:56:21 Test Item Value Reference Range Interpretation Comments WBC (test code = See_Comment H [Automated 6690-2) message] The sy stem which generated this result transmitted reference range : 4.20 - 10.70 10*3/?L. The reference range was not used to interpret this result as normal/abnormal . RBC (test code = See_Comment L [Automated 789-8) message] The sy stem which generated this result transmitted reference range : 4.26 - 5.52 10*6/?L. The reference range was not used to interpret this result as normal/abnormal . HGB (test code = 10.7 g/dL 12.2-16.4 L 718-7) HCT (test code = 31.6 % 38.4-49.3 L 4544-3) MCV (test code = 99.4 fL 81.7-95.6 H 787-2) MCH (test code = 33.6 pg 26.1-32.7 H 785-6) MCHC (test code = 33.9 g/dL 31.2-35.0 786-4) RDW-SD (test code = 49.8 fL 38.5-51.6 22920-2) RDW-CV (test code = 13.8 % 12.1-15.4 788-0) PLT (test code = See_Comment [Automated 777-3) message] The sy stem which generated this result transmitted reference range : 150 - 328 10*3/ ?L. The reference r harris was not used to interpret this result as normal/abnormal . MPV (test code = 12.1 fL 9.8-13.0 82919-7) NRBC/100 WBC (test See_Comment [Automat ed code = 3259691995) message] The system which generated this result transmitted reference range : 0.0 - 10.0 /100 WBCs. The refer ence range was not u sed to interpret th is result as normal/abnormal . NRBC x10^3 (test code <0.01 See_Comment [Auto mated = 2427140784) message] The s ystem which generated this result transmitted reference range : 10*3/?L. The reference range was not used to interpret this result as normal/abnormal . GRAN MAT (NEUT) % 76.4 % (test code = 770-8) IMM GRAN % (test code 0.60 % = 8323275200) LYMPH % (test code = 16.1 % 736-9) MONO % (test code = 5.5 % 5905-5) EOS % (test code = 1.1 % 713-8) BASO % (test code = 0.3 % 706-2) GRAN MAT x10^3(ANC) 8.81 10*3/uL 1.99-6.95 H (test code = 9494940756) IMM GRAN x10^3 (test 0.07 10*3/uL 0.00-0.06 H code = 0822316295) LYMPH x10^3 (test code 1.86 10*3/uL 1.09-3.23 = 731-0) MONO x10^3 (test code 0.63 10*3/uL 0.36-1.02 = 742-7) EOS x10^3 (test code = 0.13 10*3/uL 0.06-0.53 711-2) BASO x10^3 (test code 0.04 10*3/uL 0.01-0.09 = 704-7) Lab Interpretation Abnormal (test code = 96635-3) [facility] DNA [id number] 21:13:54 Test Item Value Reference Range Interpretation Comments Coagulase Negative Positive Negative, See A Staphylococcus (test Comment/Narrative code = 43879-6) RANDA (test code = RANDA) Coagulase negative Staphylococcus (CoNS) detected by DNA probe. ?CoNS often contaminate blood cultures from skin colonization during phlebotomy. ?Preferred management is to repeat blood cultures, and monitor off antibiotics. ?Contamination is suggested by culture growth after 48 hours, or growth in single culture (i.e., one of two sets). ?True bacteremia is suggested by the fever, hypotension, and leukocytosis that are not explained by an alternative infection, or indwelling foreign devices that appear infected (catheters, lines, or prostheses). Consider Infectious Diseases consultation if differentiation of CoNS bacteremia from contamination is uncertain. If clinical context suggests true bacteremia, preferred therapy is vancomycin. Please contact the Antimicrobial Stewardship Program with questions.Pager: ?[phone] Testing included eleven identification and three resistance marker targets. Lab Interpretation Abnormal (test code = 95156-6) [facility] 17:07:49 Test Item Value Reference Range Interpretation Comments MAGNESIUM (test code = 7412427228) 1.7 mg/dL 1.7-2.4 Lab Interpretation (test code = Normal 92750-5) [facility] 17:07:29 Test Item Value Reference Range Interpretation Comments PHOSPHORUS (test code = 2.9 mg/dL 2.5-5.0 Slig ht hemolysis 1267364251) Lab Interpretation (test Normal code = 16646-1) [facility] (NA, K, CL, CO2, GLUCOSE, BUN, CREATININE, CA)2021-05-10 05:51:08 Test Item Value Reference Range Interpretation Comments NA (test code = 131 mmol/L 135-145 L 1381015534) K (test code = 3.3 mmol/L 3.5-5.0 L 0583460440) CL (test code = 103 mmol/L 98-108 1677226734) CO2 TOTAL (test code = 17 mmol/L 23-31 L 7213412466) AGAP (test code = 2-16 6851029789) BUN (test code = 27 mg/dL 7-23 H 0567688875) GLUCOSE (test code = 109 mg/dL 70-110 4057636442) CREATININE (test code = 0.73 mg/dL 0.60-1.25 5060982788) CALCIUM (test code = 6.6 mg/dL 8.6-10.6 L 7486313699) eGFR (test code = mL/min/1.73m2 8871411351) RANDA (test code = RANDA) Association of Glomerular Filtration Rate (GFR) and Staging of Kidney Disease* + --+ --+ ------+| GFR (mL/min/1.73 m2) ?| With Kidney Damage ?| ?Without Kidney Damage+ --------+ --------+ +| ?>90 ?| ?Stage one ?| ? Normal ?+ ---+ ---+ -------+| ?60-89 ?| ?Stage two ?| ? Decreased GFR ? + --+ --+ ------+| ?30-59 ?| ?Stage three ?| ? Stage three ? + --+ --+ ------+| ?15-29 ?| ?Stage four ? | ? Stage four ?+ ---+ ---+ -------+| ?<15 (or dialysis) ? ?| ?Stage five ? | ? Stage five ?+ ---+ ---+ -------+ *Each stage assumes the associated GFR level has been in effect for at least three months. ?Stages 1 to 5, with or without kidney disease, indicate chronic kidney disease. Notes: Determination of stages one and two (with eGFR >59mL/min/1.73 m2) requires estimation of kidney damage for at least three months as defined by structural or functional abnormalities of the kidney, manifested by either:Pathological abnormalities or Markers of kidney damage (including abnormalities in the composition of the blood or urine or abnormalities in imaging tests). Lab Interpretation Abnormal (test code = 59367-4) [facility] 22:49:29 Test Item Value Reference Range Interpretation Comments POCT GLU (test code = 2217262355) 81 mg/dL 70-110 Lab Interpretation (test code = Normal 87394-6) [facility] / [id number] 21:22:01 Test Item Value Reference Range Interpretation Comments PROTIME PATIENT (test See_Comment [Auto mated message] code = 5964-2) The system [employer] generated this result transmitted ref erence range: 12.0 - 1 4.7 Seconds. The re ference range was not u sed to interpret this result as normal/abnor mal. INR (test code = 6301-6) Nor mal INR <1.1; Warfarin Therap eutic range 2.0 to 3. 0 or 2.5 to 3.5, dep ending upon the indica tions. Lab Interpretation (test Normal code = 83863-3) [facility] 21:18:39 Test Item Value Reference Range Interpretation Comments ALCOHOL (test code = 27 mg/dL 6148498156) RANDA (test code = RANDA) <10 [id number] Toxic>100 Depression of [employer]ELOPER>400 Fatalities Reported [facility] METABOLIC PANEL ([id number])2021-05-09 21:17:58 Test Item Value Reference Range Interpretation Comments NA (test code = 126 mmol/L 135-145 L 7053134087) K (test code = 3.1 mmol/L 3.5-5.0 L 6130714947) CL (test code = 83 mmol/L 98-108 L 7030637077) CO2 TOTAL (test code = 20 mmol/L 23-31 L 9193431043) AGAP (test code = 2-16 H 7005111655) BUN (test code = 44 mg/dL 7-23 H 5454873158) GLUCOSE (test code = 71 mg/dL 70-110 2026574402) CREATININE (test code = 1.37 mg/dL 0.60-1.25 H 0471489651) TOTAL BILI (test code = 1.2 mg/dL 0.1-1.1 H 1482364389) CALCIUM (test code = 8.7 mg/dL 8.6-10.6 5221802460) T PROTEIN (test code = 7.5 g/dL 6.3-8.2 2419679965) ALBUMIN (test code = 3.9 g/dL 3.5-5.0 2816683799) ALK PHOS (test code = 87 U/L 34-122 9613773186) ALTv (test code = 13 U/L 5-50 1742-6) AST(SGOT) (test code = 21 U/L 13-40 4114455997) eGFR (test code = mL/min/1.73m2 7677618064) RANDA (test code = RANDA) Association of Glomerular Filtration Rate (GFR) and Staging of Kidney Disease* + --+ --+ ------+| GFR (mL/min/1.73 m2) ?| With Kidney Damage ?| ?Without Kidney Damage+ --------+ --------+ +| ?>90 ?| ?Stage one ?| ? Normal ?+ ---+ ---+ -------+| ?60-89 ?| ?Stage two ?| ? Decreased GFR ? + --+ --+ ------+| ?30-59 ?| ?Stage three ?| ? Stage three ? + --+ --+ ------+| ?15-29 ?| ?Stage four ? | ? Stage four ?+ ---+ ---+ -------+| ?<15 (or dialysis) ? ?| ?Stage five ? | ? Stage five ?+ ---+ ---+ -------+ *Each stage assumes the associated GFR level has been in effect for at least three months. ?Stages 1 to 5, with or without kidney disease, indicate chronic kidney disease. Notes: Determination of stages one and two (with eGFR >59mL/min/1.73 m2) requires estimation of kidney damage for at least three months as defined by structural or functional abnormalities of the kidney, manifested by either:Pathological abnormalities or Markers of kidney damage (including abnormalities in the composition of the blood or urine or abnormalities in imaging tests). Lab Interpretation Abnormal (test code = 97582-3) [facility] 21:17:58 Test Item Value Reference Range Interpretation Comments MAGNESIUM (test code = 4131916234) 1.7 mg/dL 1.7-2.4 Lab Interpretation (test code = Normal 37477-5) [facility] WITH [id number] 21:07:36 Test Item Value Reference Range Interpretation Comments WBC (test code = See_Comment H [Automated 2390-2) message] The sy stem which generated this result transmitted reference range : 4.20 - 10.70 10*3/?L. The reference range was not used to interpret this result as normal/abnormal . RBC (test code = See_Comment L [Automated 029-8) message] The sy stem which generated this result transmitted reference range : 4.26 - 5.52 10*6/?L. The reference range was not used to interpret this result as normal/abnormal . HGB (test code = 12.8 g/dL 12.2-16.4 718-7) HCT (test code = 36.3 % 38.4-49.3 L 4544-3) MCV (test code = 94.0 fL 81.7-95.6 787-2) MCH (test code = 33.2 pg 26.1-32.7 H 785-6) MCHC (test code = 35.3 g/dL 31.2-35.0 H 786-4) RDW-SD (test code = 45.9 fL 38.5-51.6 33157-0) RDW-CV (test code = 13.4 % 12.1-15.4 788-0) PLT (test code = See_Comment [Automated 777-3) message] The sy stem which generated this result transmitted reference range : 150 - 328 10*3/ ?L. The reference r harris was not used to interpret this result as normal/abnormal . MPV (test code = 11.2 fL 9.8-13.0 90503-8) NRBC/100 WBC (test See_Comment [Automat ed code = 1318400336) message] The system which generated this result transmitted reference range : 0.0 - 10.0 /100 WBCs. The refer ence range was not u sed to interpret th is result as normal/abnormal . NRBC x10^3 (test code <0.01 See_Comment [Auto mated = 2474780815) message] The s ystem which generated this result transmitted reference range : 10*3/?L. The reference range was not used to interpret this result as normal/abnormal . GRAN MAT (NEUT) % 63.8 % (test code = 770-8) IMM GRAN % (test code 1.30 % = 9158489384) LYMPH % (test code = 25.7 % 736-9) MONO % (test code = 7.8 % 5905-5) EOS % (test code = 1.1 % 713-8) BASO % (test code = 0.3 % 706-2) GRAN MAT x10^3(ANC) 7.09 10*3/uL 1.99-6.95 H (test code = 6042972631) IMM GRAN x10^3 (test 0.14 10*3/uL 0.00-0.06 H code = 8677493810) LYMPH x10^3 (test code 2.85 10*3/uL 1.09-3.23 = 731-0) MONO x10^3 (test code 0.87 10*3/uL 0.36-1.02 = 742-7) EOS x10^3 (test code = 0.12 10*3/uL 0.06-0.53 711-2) BASO x10^3 (test code 0.03 10*3/uL 0.01-0.09 = 704-7) Lab Interpretation Abnormal (test code = 05408-6) [facility] CULTURE [id number] 16:01:51 Test Item Value Reference Range Interpretation Comments Blood Culture-Aerobic No organisms No growth Previo us (test code = 74850-3) isolated prelim inary verified result was Culture In Progress on 01/07/2021 at 13 01 CSTPrevious preliminary verified result was No growth a t 24 hours on 01/08/2021 at 10 01 CSTPrevious preliminary verified result was No growth a t 48 hours on 01/09/2021 at 10 01 CSTPrevious preliminary verified result was No growth a t 72 hours on 01/10/2021 at 1002 [employer] Blood No organisms No growth Previous Culture-Anaerobic isolated preliminar y (test code = 42771-9) verifi ed result was Culture In Progress on 01/07/2021 at 13 01 CSTPrevious preliminary verified result was No growth a t 24 hours on 01/08/2021 at 10 01 CSTPrevious preliminary verified result was No growth a t 48 hours on 01/09/2021 at 10 01 CSTPrevious preliminary verified result was No growth a t 72 hours on 01/10/2021 at 1002 [employer] Lab Interpretation Normal (test code = 37449-2) [facility] CULTURE [id number] 14:01:54 Test Item Value Reference Range Interpretation Comments Blood Culture-Aerobic No organisms No growth Previo us (test code = 64264-4) isolated prelim inary verified result was Culture In Progress on 01/07/2021 at 11 02 CSTPrevious preliminary verified result was No growth a t 24 hours on 01/08/2021 at 08 01 CSTPrevious preliminary verified result was No growth a t 48 hours on 01/09/2021 at 08 01 CSTPrevious preliminary verified result was No growth a t 72 hours on 01/10/2021 at 0801 SE[employer] Blood No organisms No growth Previous Culture-Anaerobic isolated preliminar y (test code = 59553-2) salena ed result was Culture In Progress on 01/07/2021 at 11 02 CSTPrevious preliminary verified result was No growth a t 24 hours on 01/08/2021 at 08 01 CSTPrevious preliminary verified result was No growth a t 48 hours on 01/09/2021 at 08 01 CSTPrevious preliminary verified result was No growth a t 72 hours on 01/10/2021 at 0801 SEWER [employer] Lab Interpretation Normal (test code = 65669-3) [facility] METABOLIC PANEL (NA, K, CL, CO2, GLUCOSE, BUN, CREATININE, CA)2021-01-12 12:47:22 Test Item Value Reference Range Interpretation Comments NA (test code = 136 mmol/L 135-145 0356763507) K (test code = 4.2 mmol/L 3.5-5.0 2981675787) CL (test code = 102 mmol/L 98-108 7636548437) CO2 TOTAL (test code 29 mmol/L 23-31 = 5358041516) AGAP (test code = 2-16 9545456303) BUN (test code = 14 mg/dL 7-23 5951086558) GLUCOSE (test code = 80 mg/dL 70-110 9810105441) CREATININE (test code 0.63 mg/dL 0.60-1.25 = 2940021795) CALCIUM (test code = 9.1 mg/dL 8.6-10.6 9363949394) eGFR (test code = mL/min/1.73m2 5732999775) RANDA (test code = RANDA) Association of Glomerular Filtration Rate (GFR) and Staging of Kidney Disease* + + +- +| GFR (mL/min/1.73 m2) ?| With Kidney Damage ?| ?Without Kidney Damage+ ------+ ----+ ------+| ?>90 ?| ?Stage one ?| ? Normal ?+ -+ + -+| ?60-89 ?| ?Stage two ?| ? Decreased GFR ? + + +- +| ?30-59 ?| ?Stage three ?| ? Stage three ? + + +- +| ?15-29 ?| ?Stage four ? | ? Stage four ?+ -+ + -+| ?<15 (or dialysis) ? ?| ?Stage five ? | ? Stage five ?+ -+ + -+ *Each stage assumes the associated GFR level has been in effect for at least three months. ?Stages 1 to 5, with or without kidney disease, indicate chronic kidney disease. Notes: Determination of stages one and two (with eGFR >59mL/min/1.73 m2) requires estimation of kidney damage for at least three months as defined by structural or functional abnormalities of the kidney, manifested by either:Pathological abnormalities or Markers of kidney damage (including abnormalities in the composition of the blood or urine or abnormalities in imaging tests). [facility] 12:47:22 Test Item Value Reference Range Interpretation Comments MAGNESIUM (test code = 3000673217) 1.9 mg/dL 1.7-2.4 Lab Interpretation (test code = Normal 80104-6) [facility] (NA, K, CL, CO2, GLUCOSE, BUN, CREATININE, CA)2021-01-11 12:41:13 Test Item Value Reference Range Interpretation Comments NA (test code = 134 mmol/L 135-145 L 9184761697) K (test code = 5.0 mmol/L 3.5-5.0 0601006682) CL (test code = 101 mmol/L 98-108 0812747108) CO2 TOTAL (test code = 32 mmol/L 23-31 H 0257016428) AGAP (test code = 2-16 L 7653565717) BUN (test code = 13 mg/dL 7-23 5067387700) GLUCOSE (test code = 86 mg/dL 70-110 1916419123) CREATININE (test code = 0.67 mg/dL 0.60-1.25 1464778950) CALCIUM (test code = 8.9 mg/dL 8.6-10.6 8678578009) eGFR (test code = mL/min/1.73m2 2997792694) RANDA (test code = RANDA) Association of Glomerular Filtration Rate (GFR) and Staging of Kidney Disease* + --+ --+ ------+| GFR (mL/min/1.73 m2) ?| With Kidney Damage ?| ?Without Kidney Damage+ --------+ --------+ +| ?>90 ?| ?Stage one ?| ? Normal ?+ ---+ ---+ -------+| ?60-89 ?| ?Stage two ?| ? Decreased GFR ? + --+ --+ ------+| ?30-59 ?| ?Stage three ?| ? Stage three ? + --+ --+ ------+| ?15-29 ?| ?Stage four ? | ? Stage four ?+ ---+ ---+ -------+| ?<15 (or dialysis) ? ?| ?Stage five ? | ? Stage five ?+ ---+ ---+ -------+ *Each stage assumes the associated GFR level has been in effect for at least three months. ?Stages 1 to 5, with or without kidney disease, indicate chronic kidney disease. Notes: Determination of stages one and two (with eGFR >59mL/min/1.73 m2) requires estimation of kidney damage for at least three months as defined by structural or functional abnormalities of the kidney, manifested by either:Pathological abnormalities or Markers of kidney damage (including abnormalities in the composition of the blood or urine or abnormalities in imaging tests). Lab Interpretation Abnormal (test code = 00060-0) [facility] - Please draw trough BEFORE the 4th dose scheduled at 0500, but no more than60 mins before the dose is due.2021-01-11 12:03:50 Test Item Value Reference Range Interpretation Comments VANCO TROUGH (test code 11.6 ug/mL 10.0-20.0 = 0610461854) RANDA (test code = RANDA) Toxic Range: ?>20 ug/mL 15-20 ug/mL is recommended for severe infection or when Vancomycin IDALMIS is greater than or equal to 2. Lab Interpretation (test Normal code = 73281-9) [facility]2021-[facility]-11 11:58:32 Test Item Value Reference Range Interpretation Comments MAGNESIUM (test code = 2908396281) 1.9 mg/dL 1.7-2.4 Lab Interpretation (test code = Normal 45611-7) [facility]2021-[facility]-11 11:58:32 Test Item Value Reference Range Interpretation Comments PHOSPHORUS (test code = 8231842224) 4.3 mg/dL 2.5-5.0 Lab Interpretation (test code = Normal 42824-0) [facility]2021[facility] 11:55:13 Test Item Value Reference Range Interpretation Comments ALBUMIN (test code = 3734923788) 2.8 g/dL 3.5-5.0 L Lab Interpretation (test code = Abnormal 86093-0) [facility] WITH [id number] 11:05:44 Test Item Value Reference Range Interpretation Comments WBC (test code = See_Comment [Automated 6690-2) message] The sy stem which generated this result transmitted reference range : 4.20 - 10.70 10*3/?L. The reference range was not used to interpret this result as normal/abnormal . RBC (test code = See_Comment L [Automated 789-8) message] The sy stem which generated this result transmitted reference range : 4.26 - 5.52 10*6/?L. The reference range was not used to interpret this result as normal/abnormal . HGB (test code = 9.3 g/dL 12.2-16.4 L 718-7) HCT (test code = 28.8 % 38.4-49.3 L 4544-3) MCV (test code = 99.0 fL 81.7-95.6 H 787-2) MCH (test code = 32.0 pg 26.1-32.7 785-6) MCHC (test code = 32.3 g/dL 31.2-35.0 786-4) RDW-SD (test code = 57.2 fL 38.5-51.6 H 83688-9) RDW-CV (test code = 15.9 % 12.1-15.4 H 788-0) PLT (test code = See_Comment H [Automated 777-3) message] The sy stem which generated this result transmitted reference range : 150 - 328 10*3/ ?L. The reference r harris was not used to interpret this result as normal/abnormal . MPV (test code = 10.2 fL 9.8-13.0 07079-8) NRBC/100 WBC (test See_Comment [Automat ed code = 8953339207) message] The system which generated this result transmitted reference range : 0.0 - 10.0 /100 WBCs. The refer ence range was not u sed to interpret th is result as normal/abnormal . NRBC x10^3 (test code <0.01 See_Comment [Auto mated = 4904473257) message] The s ystem which generated this result transmitted reference range : 10*3/?L. The reference range was not used to interpret this result as normal/abnormal . GRAN MAT (NEUT) % 45.8 % (test code = 770-8) IMM GRAN % (test code 1.10 % = 1397682832) LYMPH % (test code = 38.6 % 736-9) MONO % (test code = 11.1 % 5905-5) EOS % (test code = 2.0 % 713-8) BASO % (test code = 1.4 % 706-2) GRAN MAT x10^3(ANC) 3.39 10*3/uL 1.99-6.95 (test code = 5141138909) IMM GRAN x10^3 (test 0.08 10*3/uL 0.00-0.06 H code = 3936299068) LYMPH x10^3 (test code 2.85 10*3/uL 1.09-3.23 = 731-0) MONO x10^3 (test code 0.82 10*3/uL 0.36-1.02 = 742-7) EOS x10^3 (test code = 0.15 10*3/uL 0.06-0.53 711-2) BASO x10^3 (test code 0.10 10*3/uL 0.01-0.09 H = 704-7) Lab Interpretation Abnormal (test code = 86610-1) [facility], [id number] 04:23:31 Test Item Value Reference Range Interpretation Comments VIT B1 (test code = <2 See_Comment L INTERPRE TIVE DATA: ) Vitamin B1, John sma Thiamine (vitam in B1) is reported. Ho risa, thiamine diphos phate (TDP), the biol ogically active form of thiamine, is no t found in measurable concentrations in plasma, and is best determined in w hole blood specimens . Plasma thiamine concen tration reflects recent intake rather than bod y stores. This te st was developed and i ts performance characteristics determined by [facility]. I t has not been cleare d or approved by the [place] Food and Drug Administration. This test was perfor med in a CLIA certified laboratory and is intended for cl inical purposes.Perfor med By: [facility] [employer] [address] [place], [place] [address]Pahqpcfgrc Director: Michelle Hastings MD [Aut omated message] The sy stem which generated this result transmit brisa reference range : 4 - 15 nmol/L. The ref erence range was not u sed to interpret this result as normal/abnor mal. Lab Interpretation Abnormal (test code = 28086-1) [facility] Hospital[facility]IT[facility]IN [facility] (THIAMINE), WHOLE [id number] 01:05:35 Test Item Value Reference Range Interpretation Comments Vitamin B1, Whole 56 nmol/L 70-180 L INTERPRETI VE Blood (test code = INFORMATI ON: Vitamin 11778-2) B1, Whole Blood This assay measures the concentration o f thiamine diphos phate (TDP), the prim bette active form of vitamin B1. Approximate ly 90 percent of chu min B1 present in whol e blood is TDP. Thiamin e and thiamine monophosphate, which comprise the re maining 10 percent, are not measured. This test was developed a nd its performance characteristics determined by [facility]. I t has not been cleare d or approved by the [place] Food and Drug Administration. This test was perfor med in a CLIA certifie d laboratory and is intended for cl inical purposes.Perfor med By: [facility] [employer] [address] [address]Sidjtnpanw Director: Michelle Hastings MD Lab Interpretation Abnormal (test code = 68154-2) [facility]ABOLIC PAN[facility] (NA, K, CL, CO2, GLUCOSE, BUN, CREATININE, CA)2021-01-10 18:20:18 Test Item Value Reference Range Interpretation Comments NA (test code = 132 mmol/L 135-145 L 5951758633) K (test code = 4.1 mmol/L 3.5-5.0 8883767673) CL (test code = 99 mmol/L 98-108 0268091661) CO2 TOTAL (test code = 32 mmol/L 23-31 H 5301601148) AGAP (test code = 2-16 L 1703623767) BUN (test code = 14 mg/dL 7-23 1653793235) GLUCOSE (test code = 137 mg/dL 70-110 H 0398810040) CREATININE (test code = 0.61 mg/dL 0.60-1.25 0963820027) CALCIUM (test code = 8.2 mg/dL 8.6-10.6 L 0961960062) eGFR (test code = mL/min/1.73m2 7996854341) RANDA (test code = RANDA) Association of Glomerular Filtration Rate (GFR) and Staging of Kidney Disease* + --+ --+ ------+| GFR (mL/min/1.73 m2) ?| With Kidney Damage ?| ?Without Kidney Damage+ --------+ --------+ +| ?>90 ?| ?Stage one ?| ? Normal ?+ ---+ ---+ -------+| ?60-89 ?| ?Stage two ?| ? Decreased GFR ? + --+ --+ ------+| ?30-59 ?| ?Stage three ?| ? Stage three ? + --+ --+ ------+| ?15-29 ?| ?Stage four ? | ? Stage four ?+ ---+ ---+ -------+| ?<15 (or dialysis) ? ?| ?Stage five ? | ? Stage five ?+ ---+ ---+ -------+ *Each stage assumes the associated GFR level has been in effect for at least three months. ?Stages 1 to 5, with or without kidney disease, indicate chronic kidney disease. Notes: Determination of stages one and two (with eGFR >59mL/min/1.73 m2) requires estimation of kidney damage for at least three months as defined by structural or functional abnormalities of the kidney, manifested by either:Pathological abnormalities or Markers of kidney damage (including abnormalities in the composition of the blood or urine or abnormalities in imaging tests). Lab Interpretation Abnormal (test code = 02001-2) [facility]2021-[facility] 17:20:53 Test Item Value Reference Range Interpretation Comments MAGNESIUM (test code = 6917119888) 1.7 mg/dL 1.7-2.4 Lab Interpretation (test code = Normal 49508-8) [facility] BranchRENAL [id number] 17:20:52 Test Item Value Reference Range Interpretation Comments ALBUMIN (test code = 2.7 g/dL 3.5-5.0 L 4662675414) CALCIUM (test code = 8.2 mg/dL 8.6-10.6 L 7971989345) CO2 TOTAL (test code = 33 mmol/L 23-31 H 0274452257) CREATININE (test code = 0.61 mg/dL 0.60-1.25 6431157583) GLUCOSE (test code = 137 mg/dL 70-110 H 4460640915) K (test code = 4.1 mmol/L 3.5-5.0 5057159339) NA (test code = 133 mmol/L 135-145 L 3291619677) BUN (test code = 14 mg/dL 7-23 9368096691) PHOSPHORUS (test code = 4.3 mg/dL 2.5-5.0 3361998821) eGFR (test code = mL/min/1.73m2 5227780043) RANDA (test code = RANDA) Association of Glomerular Filtration Rate (GFR) and Staging of Kidney Disease* + --+ --+ ------+| GFR (mL/min/1.73 m2) ?| With Kidney Damage ?| ?Without Kidney Damage+ --------+ --------+ +| ?>90 ?| ?Stage one ?| ? Normal ?+ ---+ ---+ -------+| ?60-89 ?| ?Stage two ?| ? Decreased GFR ? + --+ --+ ------+| ?30-59 ?| ?Stage three ?| ? Stage three ? + --+ --+ ------+| ?15-29 ?| ?Stage four ? | ? Stage four ?+ ---+ ---+ -------+| ?<15 (or dialysis) ? ?| ?Stage five ? | ? Stage five ?+ ---+ ---+ -------+ *Each stage assumes the associated GFR level has been in effect for at least three months. ?Stages 1 to 5, with or without kidney disease, indicate chronic kidney disease. Notes: Determination of stages one and two (with eGFR >59mL/min/1.73 m2) requires estimation of kidney damage for at least three months as defined by structural or functional abnormalities of the kidney, manifested by either:Pathological abnormalities or Markers of kidney damage (including abnormalities in the composition of the blood or urine or abnormalities in imaging tests). Lab Interpretation Abnormal (test code = 43861-7) [facility] WITH [id number] 13:12:49 Test Item Value Reference Range Interpretation Comments WBC (test code = See_Comment [Automated 6690-2) message] The sy stem which generated this result transmitted reference range : 4.20 - 10.70 10*3/?L. The reference range was not used to interpret this result as normal/abnormal . RBC (test code = See_Comment L [Automated 789-8) message] The sy stem which generated this result transmitted reference range : 4.26 - 5.52 10*6/?L. The reference range was not used to interpret this result as normal/abnormal . HGB (test code = 9.9 g/dL 12.2-16.4 L 718-7) HCT (test code = 29.5 % 38.4-49.3 L 4544-3) MCV (test code = 98.3 fL 81.7-95.6 H 787-2) MCH (test code = 33.0 pg 26.1-32.7 H 785-6) MCHC (test code = 33.6 g/dL 31.2-35.0 786-4) RDW-SD (test code = 56.9 fL 38.5-51.6 H 50048-3) RDW-CV (test code = 16.2 % 12.1-15.4 H 788-0) PLT (test code = See_Comment [Automated 777-3) message] The sy stem which generated this result transmitted reference range : 150 - 328 10*3/ ?L. The reference r harris was not used to interpret this result as normal/abnormal . MPV (test code = 11.6 fL 9.8-13.0 19169-0) NRBC/100 WBC (test See_Comment [Automat ed code = 2496731413) message] The system which generated this result transmitted reference range : 0.0 - 10.0 /100 WBCs. The refer ence range was not u sed to interpret th is result as normal/abnormal . NRBC x10^3 (test code <0.01 See_Comment [Auto mated = 7017701121) message] The s ystem which generated this result transmitted reference range : 10*3/?L. The reference range was not used to interpret this result as normal/abnormal . GRAN MAT (NEUT) % 47.8 % (test code = 770-8) IMM GRAN % (test code 1.30 % = 9502437889) LYMPH % (test code = 37.2 % 736-9) MONO % (test code = 10.9 % 5905-5) EOS % (test code = 1.8 % 713-8) BASO % (test code = 1.0 % 706-2) GRAN MAT x10^3(ANC) 3.70 10*3/uL 1.99-6.95 (test code = 1581985230) IMM GRAN x10^3 (test 0.10 10*3/uL 0.00-0.06 H code = 6299195025) LYMPH x10^3 (test code 2.88 10*3/uL 1.09-3.23 = 731-0) MONO x10^3 (test code 0.84 10*3/uL 0.36-1.02 = 742-7) EOS x10^3 (test code = 0.14 10*3/uL 0.06-0.53 711-2) BASO x10^3 (test code 0.08 10*3/uL 0.01-0.09 = 704-7) Lab Interpretation Abnormal (test code = 42551-0) [facility] [id number] 13:29:47 Test Item Value Reference Range Interpretation Comments NT-proBNP (test code 4090 pg/mL See_Comment H [Autom ated = 0623993732) message] The system which generated this result transmitted reference range : <=125. The reference range was not used to interpret this result as normal/abnormal . RANDA (test code = RANDA) Biotin has been reported to cause a negative bias, interpret results relative to patient's use of biotin. Lab Interpretation Abnormal (test code = 42655-5) [facility] METABOLIC PANEL (NA, K, CL, CO2, GLUCOSE, BUN, CREATININE, CA)2021-01-09 13:25:45 Test Item Value Reference Range Interpretation Comments NA (test code = 133 mmol/L 135-145 L 3418835744) K (test code = 5.8 mmol/L 3.5-5.0 H 6415909246) CL (test code = 99 mmol/L 98-108 7370130792) CO2 TOTAL (test code = 32 mmol/L 23-31 H 6932291188) AGAP (test code = 2-16 6401077786) BUN (test code = 13 mg/dL 7-23 4680422394) GLUCOSE (test code = 91 mg/dL 70-110 8929017615) CREATININE (test code = 0.72 mg/dL 0.60-1.25 1996896936) CALCIUM (test code = 8.6 mg/dL 8.6-10.6 0512088297) eGFR (test code = mL/min/1.73m2 1069574217) RANDA (test code = RANDA) Association of Glomerular Filtration Rate (GFR) and Staging of Kidney Disease* + --+ --+ ------+| GFR (mL/min/1.73 m2) ?| With Kidney Damage ?| ?Without Kidney Damage+ --------+ --------+ +| ?>90 ?| ?Stage one ?| ? Normal ?+ ---+ ---+ -------+| ?60-89 ?| ?Stage two ?| ? Decreased GFR ? + --+ --+ ------+| ?30-59 ?| ?Stage three ?| ? Stage three ? + --+ --+ ------+| ?15-29 ?| ?Stage four ? | ? Stage four ?+ ---+ ---+ -------+| ?<15 (or dialysis) ? ?| ?Stage five ? | ? Stage five ?+ ---+ ---+ -------+ *Each stage assumes the associated GFR level has been in effect for at least three months. ?Stages 1 to 5, with or without kidney disease, indicate chronic kidney disease. Notes: Determination of stages one and two (with eGFR >59mL/min/1.73 m2) requires estimation of kidney damage for at least three months as defined by structural or functional abnormalities of the kidney, manifested by either:Pathological abnormalities or Markers of kidney damage (including abnormalities in the composition of the blood or urine or abnormalities in imaging tests). Lab Interpretation Abnormal (test code = 03403-0) [facility]45 Test Item Value Reference Range Interpretation Comments MAGNESIUM (test code = 1202042879) 1.6 mg/dL 1.7-2.4 L Lab Interpretation (test code = Abnormal 49909-7) [facility] 13:25:30 Test Item Value Reference Range Interpretation Comments PHOSPHORUS (test code = 8035554332) 4.5 mg/dL 2.5-5.0 Lab Interpretation (test code = Normal 57810-7) [facility] [id number] 12:45:42 Test Item Value Reference Range Interpretation Comments WBC (test code = See_Comment [Automated 6690-2) message] The sy stem which generated this result transmitted reference range : 4.20 - 10.70 10*3/?L. The reference range was not used to interpret this result as normal/abnormal . RBC (test code = See_Comment L [Automated 789-8) message] The sy stem which generated this result transmitted reference range : 4.26 - 5.52 10*6/?L. The reference range was not used to interpret this result as normal/abnormal . HGB (test code = 10.0 g/dL 12.2-16.4 L 718-7) HCT (test code = 30.0 % 38.4-49.3 L 4544-3) MCV (test code = 98.7 fL 81.7-95.6 H 787-2) MCH (test code = 32.9 pg 26.1-32.7 H 785-6) MCHC (test code = 33.3 g/dL 31.2-35.0 786-4) RDW-SD (test code = 54.4 fL 38.5-51.6 H 88058-9) RDW-CV (test code = 15.4 % 12.1-15.4 788-0) PLT (test code = See_Comment H [Automated 777-3) message] The sy stem which generated this result transmitted reference range : 150 - 328 10*3/ ?L. The reference r harris was not used to interpret this result as normal/abnormal . MPV (test code = 10.5 fL 9.8-13.0 36413-1) NRBC/100 WBC (test See_Comment [Automat ed code = 7802695025) message] The system which generated this result transmitted reference range : 0.0 - 10.0 /100 WBCs. The refer ence range was not u sed to interpret th is result as normal/abnormal . NRBC x10^3 (test code <0.01 See_Comment [Auto mated = 1746558799) message] The s ystem which generated this result transmitted reference range : 10*3/?L. The reference range was not used to interpret this result as normal/abnormal . GRAN MAT (NEUT) % 60.5 % (test code = 770-8) IMM GRAN % (test code 1.50 % = 6447285198) LYMPH % (test code = 25.9 % 736-9) MONO % (test code = 9.1 % 5905-5) EOS % (test code = 1.9 % 713-8) BASO % (test code = 1.1 % 706-2) GRAN MAT x10^3(ANC) 5.01 10*3/uL 1.99-6.95 (test code = 5383015958) IMM GRAN x10^3 (test 0.12 10*3/uL 0.00-0.06 H code = 0256527753) LYMPH x10^3 (test code 2.14 10*3/uL 1.09-3.23 = 731-0) MONO x10^3 (test code 0.75 10*3/uL 0.36-1.02 = 742-7) EOS x10^3 (test code = 0.16 10*3/uL 0.06-0.53 711-2) BASO x10^3 (test code 0.09 10*3/uL 0.01-0.09 = 704-7) Lab Interpretation Abnormal (test code = 05598-9) [facility] [id number] 16:50:13 Test Item Value Reference Range Interpretation Comments Blood Culture Diphtheroid-like Additional work-up Workup (test organism performed only per code = 600-7) request. Cultu re plate(s) will b e saved until s date: 1 Gram stain Isolated from aerobic Gram p ositive (test code = bottle Gram positive Bacilli in Aerobic 664-3) bacilli RANDA (test code Diphtheroids often = RANDA) contaminate blood cultures from skin colonization during phlebotomy. ?Preferred management is to repeat blood cultures, and monitor off antibiotics Consider Infectious Diseases consultation if uncertain whether bacteremia or contamination. Please contact the Antimicrobial Stewardship Program with questions.ASP Pager: ?[phone] [facility] Culture - Peripheral # [id number] 16:49:58 Test Item Value Reference Range Interpretation Comments Blood Culture-Aerobic Culture positive. No growth AA G rica positive (test code = 47830-0) See Blood Culture B acilli in Workup for Aerobic Previou s additional preliminary information. verified result was Culture In Progress on 01/04/2021 at 21 01 CDTPrevious preliminary verified result was No growth a t 24 hours on 01/05/2021 at 18 01 CDT Blood No organisms No growth Previous Culture-Anaerobic isolated preliminar y (test code = 80564-6) verifi ed result was Culture In Progress on 01/04/2021 at 21 01 CDTPrevious preliminary verified result was No growth a t 24 hours on 01/05/2021 at 18 01 CDT Lab Interpretation Abnormal (test code = 55938-4) [facility] CULTURE [id number] 16:43:07 Test Item Value Reference Range Interpretation Comments Blood Culture Coagulase negative Addition al Workup (test Staphylococcus work-up perfo rmed code = 600-7) only per reque st. Culture plate(s ) will be saved until this date : - 01/13/21 Gram stain Gram positive cocci Aerobic Bottle (test code = 664-3) [facility] Culture - Peripheral # [id number] 16:39:28 Test Item Value Reference Range Interpretation Comments Blood Culture-Aerobic Culture positive. No growth AA P revious (test code = 25126-9) See Blood Culture p reliminary Workup for verified result additional was Culture In information. Progress on 01/04/2021 at 21 01 CDTPrevious preliminary verified result was No growth a t 24 hours on 01/05/2021 at 18 01 CDT Blood No organisms No growth Previous Culture-Anaerobic isolated preliminar y (test code = 65367-9) verifi ed result was Culture In Progress on 01/04/2021 at 21 01 CDTPrevious preliminary verified result was No growth a t 24 hours on 01/05/2021 at 18 01 CDT Lab Interpretation Abnormal (test code = 99683-7) [facility] (HCV[facility] BY QUANTITATIVE NAAT 2021-01-08 00:57:23 Test Item Value Reference Range Interpretation Comments HCV Quantitative Not Detected Not Detected Interpretation (test code = 1912726026) RANDA (test code = RANDA) The Aptima HCV Quant Dx assay is an FDA-approved real-time banquet coordinator-mediated amplification (TMA) test used for both detection and quantitation of hepatitis C virus (HCV) RNA in human serum and plasma from HCV-infected individuals. ?It is intended for use as an aid in the diagnosis of active HCV infection and the management of HCV-infected patients undergoing HCV antiviral drug therapy. ?It is not approved for use as a screening test for the presence of HCV RNA in blood or blood products. The quantitative range of this assay is 1.00 - 8.00 log IU/mL or 10 - 100,000,000 IU/mL. An interpretation of "Not Detected" does not rule out the presence of inhibitors in the patient specimen or HCV RNA concentration below the level of detection of the test. ?Care should be taken when interpreting any single viral load determination. Detected, not Quantifiable: HCV RNA detected, but at a level below 10 IU/mL (1.0 log IU/mL). ?HCV RNA concentration is below the lower limit of quantitation of the assay. Indeterminate: Error indicated in the generation of the result. ?Please submit a new specimen for repeat testing if clinically indicated. Lab Interpretation Normal (test code = 15116-6) [facility] - Please draw trough BEFORE the 4th dose scheduled at 1000, but no more than60 mins before the dose is due.2021-01-07 17:15:57 Test Item Value Reference Range Interpretation Comments VANCO TROUGH (test code 13.4 ug/mL 10.0-20.0 = 1291887994) RANDA (test code = RANDA) Toxic Range: ?>20 ug/mL 15-20 ug/mL is recommended for severe infection or when Vancomycin IDALMIS is greater than or equal to 2. Lab Interpretation (test Normal code = 00431-6) [facility]MINAL [id number] 15:00:53 Test Item Value Reference Range Interpretation Comments NT-proBNP (test code 6970 pg/mL See_Comment H [Autom ated = 6584512065) message] The system which generated this result transmitted reference range : <=125. The reference range was not used to interpret this result as normal/abnormal . RANDA (test code = RANDA) Biotin has been reported to cause a negative bias, interpret results relative to patient's use of biotin. Lab Interpretation Abnormal (test code = 42341-4) [facility]. METABOLIC PANEL ([id number])2021-01-07 14:55:52 Test Item Value Reference Range Interpretation Comments NA (test code = 134 mmol/L 135-145 L 4348126848) K (test code = 3.6 mmol/L 3.5-5.0 2026796836) CL (test code = 98 mmol/L 98-108 8670520613) CO2 TOTAL (test code = 34 mmol/L 23-31 H 7184284336) AGAP (test code = 2-16 4957128996) BUN (test code = 3 mg/dL 7-23 L 0896956399) GLUCOSE (test code = 106 mg/dL 70-110 5177627134) CREATININE (test code = 0.58 mg/dL 0.60-1.25 L 8171670966) TOTAL BILI (test code = 0.3 mg/dL 0.1-1.1 1559738193) CALCIUM (test code = 6.8 mg/dL 8.6-10.6 L 5296110493) T PROTEIN (test code = 4.7 g/dL 6.3-8.2 L 6751921753) ALBUMIN (test code = 2.1 g/dL 3.5-5.0 L 1907482513) ALK PHOS (test code = 53 U/L 34-122 5517872906) ALTv (test code = 11 U/L 5-50 1742-6) AST(SGOT) (test code = 27 U/L 13-40 5513279116) eGFR (test code = mL/min/1.73m2 4249271979) RANDA (test code = RANDA) Association of Glomerular Filtration Rate (GFR) and Staging of Kidney Disease* + --+ --+ ------+| GFR (mL/min/1.73 m2) ?| With Kidney Damage ?| ?Without Kidney Damage+ --------+ --------+ +| ?>90 ?| ?Stage one ?| ? Normal ?+ ---+ ---+ -------+| ?60-89 ?| ?Stage two ?| ? Decreased GFR ? + --+ --+ ------+| ?30-59 ?| ?Stage three ?| ? Stage three ? + --+ --+ ------+| ?15-29 ?| ?Stage four ? | ? Stage four ?+ ---+ ---+ -------+| ?<15 (or dialysis) ? ?| ?Stage five ? | ? Stage five ?+ ---+ ---+ -------+ *Each stage assumes the associated GFR level has been in effect for at least three months. ?Stages 1 to 5, with or without kidney disease, indicate chronic kidney disease. Notes: Determination of stages one and two (with eGFR >59mL/min/1.73 m2) requires estimation of kidney damage for at least three months as defined by structural or functional abnormalities of the kidney, manifested by either:Pathological abnormalities or Markers of kidney damage (including abnormalities in the composition of the blood or urine or abnormalities in imaging tests). Lab Interpretation Abnormal (test code = 61539-0) [facility] 14:55:52 Test Item Value Reference Range Interpretation Comments MAGNESIUM (test code = 3785382421) 1.6 mg/dL 1.7-2.4 L Lab Interpretation (test code = Abnormal 66921-7) [facility] 14:55:52 Test Item Value Reference Range Interpretation Comments PHOSPHORUS (test code = 8158986605) 4.2 mg/dL 2.5-5.0 Lab Interpretation (test code = Normal 13556-2) [facility] HospitalGRAM POSITIVE BLOOD PATHOGENS DNA [id number] 21:34:20 Test Item Value Reference Range Interpretation Comments Coagulase Negative Positive Negative, See A Staphylococcus (test Comment/Narrative code = 77189-6) RANDA (test code = RANDA) Coagulase negative Staphylococcus (CoNS) detected by DNA probe. ?CoNS often contaminate blood cultures from skin colonization during phlebotomy. ?Preferred management is to repeat blood cultures, and monitor off antibiotics. ?Contamination is suggested by culture growth after 48 hours, or growth in single culture (i.e., one of two sets). ?True bacteremia is suggested by the fever, hypotension, and leukocytosis that are not explained by an alternative infection, or indwelling foreign devices that appear infected (catheters, lines, or prostheses). Consider Infectious Diseases consultation if differentiation of CoNS bacteremia from contamination is uncertain. If clinical context suggests true bacteremia, preferred therapy is vancomycin. Please contact the Antimicrobial Stewardship Program with questions.Pager: ?[phone] Testing included eleven identification and three resistance marker targets. Lab Interpretation Abnormal (test code = 90927-1) [facility] HospitalJOANN [id number] 17:32:08 Test Item Value Reference Interpretation Comments Range TROPONIN I (test 0.005 ng/mL See_Comment [Automated code = 0912104829) message] The system which generated this result transmitted reference range : <=0.034. The reference range was not used to interpret this result as normal/abnormal . RANDA (test code = Reference (Normal) RANDA) Range (defined by the 99th percentile reference limit): <= 0.034 ng/mL Note: Cardiac troponin begins to rise 3-4 hours after the onset of ischemia. Repeat in 4-6 hours if the sample was drawn within 3-4 hours of the onset of the symptom and found normal. Diagnosis of myocardial injury is made with acute changes in cTn concentrations with at least one serial sample above the 99th percentile upper reference limit (URL), taken together with the patient's clinical presentation. Biotin has been reported to cause a negative bias, interpret results relative to patient's use of biotin. Lab Interpretation Normal (test code = 77857-8) [facility]-TERMINAL [id number] 11:26:45 Test Item Value Reference Range Interpretation Comments NT-proBNP (test code 4860 pg/mL See_Comment H [Autom ated = 4498008977) message] The system which generated this result transmitted reference range : <=125. The reference range was not used to interpret this result as normal/abnormal . RANDA (test code = RANDA) Biotin has been reported to cause a negative bias, interpret results relative to patient's use of biotin. Lab Interpretation Abnormal (test code = 91522-8) [facility] WITH [id number] 11:24:39 Test Item Value Reference Range Interpretation Comments WBC (test code = See_Comment H [Automated 6690-2) message] The sy stem which generated this result transmitted reference range : 4.20 - 10.70 10*3/?L. The reference range was not used to interpret this result as normal/abnormal . RBC (test code = See_Comment L [Automated 789-8) message] The sy stem which generated this result transmitted reference range : 4.26 - 5.52 10*6/?L. The reference range was not used to interpret this result as normal/abnormal . HGB (test code = 9.4 g/dL 12.2-16.4 L 718-7) HCT (test code = 28.5 % 38.4-49.3 L 4544-3) MCV (test code = 99.7 fL 81.7-95.6 H 787-2) MCH (test code = 32.9 pg 26.1-32.7 H 785-6) MCHC (test code = 33.0 g/dL 31.2-35.0 786-4) RDW-SD (test code = 50.4 fL 38.5-51.6 40652-3) RDW-CV (test code = 14.1 % 12.1-15.4 788-0) PLT (test code = See_Comment [Automated 777-3) message] The sy stem which generated this result transmitted reference range : 150 - 328 10*3/ ?L. The reference r harris was not used to interpret this result as normal/abnormal . MPV (test code = 10.2 fL 9.8-13.0 93759-2) NRBC/100 WBC (test See_Comment [Automat ed code = 9965887160) message] The system which generated this result transmitted reference range : 0.0 - 10.0 /100 WBCs. The refer ence range was not u sed to interpret th is result as normal/abnormal . NRBC x10^3 (test code <0.01 See_Comment [Auto mated = 2315772168) message] The s ystem which generated this result transmitted reference range : 10*3/?L. The reference range was not used to interpret this result as normal/abnormal . GRAN MAT (NEUT) % 68.4 % (test code = 770-8) IMM GRAN % (test code 1.00 % = 2941029766) LYMPH % (test code = 19.5 % 736-9) MONO % (test code = 9.5 % 5905-5) EOS % (test code = 1.2 % 713-8) BASO % (test code = 0.4 % 706-2) GRAN MAT x10^3(ANC) 7.54 10*3/uL 1.99-6.95 H (test code = 7736748803) IMM GRAN x10^3 (test 0.11 10*3/uL 0.00-0.06 H code = 9505955364) LYMPH x10^3 (test code 2.15 10*3/uL 1.09-3.23 = 731-0) MONO x10^3 (test code 1.05 10*3/uL 0.36-1.02 H = 742-7) EOS x10^3 (test code = 0.13 10*3/uL 0.06-0.53 711-2) BASO x10^3 (test code 0.04 10*3/uL 0.01-0.09 = 704-7) Lab Interpretation Abnormal (test code = 01938-9) [facility]. METABOLIC PANEL ([id number])2021-01-06 11:22:42 Test Item Value Reference Range Interpretation Comments NA (test code = 134 mmol/L 135-145 L 9634127138) K (test code = 3.4 mmol/L 3.5-5.0 L 2670530425) CL (test code = 102 mmol/L 98-108 8017313582) CO2 TOTAL (test code = 30 mmol/L 23-31 7574063040) AGAP (test code = 2-16 7251605071) BUN (test code = 4 mg/dL 7-23 L 7014822396) GLUCOSE (test code = 98 mg/dL 70-110 1605004054) CREATININE (test code = 0.51 mg/dL 0.60-1.25 L 8086308185) TOTAL BILI (test code = 0.4 mg/dL 0.1-1.8 6771169601) CALCIUM (test code = 7.1 mg/dL 8.6-10.6 L 2726783853) T PROTEIN (test code = 4.8 g/dL 6.3-8.2 L 9269872691) ALBUMIN (test code = 2.2 g/dL 3.5-5.0 L 3066518043) ALK PHOS (test code = 53 U/L 34-122 4296773823) ALTv (test code = 9 U/L 5-50 1742-6) AST(SGOT) (test code = 23 U/L 13-40 4944562981) eGFR (test code = mL/min/1.73m2 0053986083) RANDA (test code = RANDA) Association of Glomerular Filtration Rate (GFR) and Staging of Kidney Disease* + --+ --+ ------+| GFR (mL/min/1.73 m2) ?| With Kidney Damage ?| ?Without Kidney Damage+ --------+ --------+ +| ?>90 ?| ?Stage one ?| ? Normal ?+ ---+ ---+ -------+| ?60-89 ?| ?Stage two ?| ? Decreased GFR ? + --+ --+ ------+| ?30-59 ?| ?Stage three ?| ? Stage three ? + --+ --+ ------+| ?15-29 ?| ?Stage four ? | ? Stage four ?+ ---+ ---+ -------+| ?<15 (or dialysis) ? ?| ?Stage five ? | ? Stage five ?+ ---+ ---+ -------+ *Each stage assumes the associated GFR level has been in effect for at least three months. ?Stages 1 to 5, with or without kidney disease, indicate chronic kidney disease. Notes: Determination of stages one and two (with eGFR >59mL/min/1.73 m2) requires estimation of kidney damage for at least three months as defined by structural or functional abnormalities of the kidney, manifested by either:Pathological abnormalities or Markers of kidney damage (including abnormalities in the composition of the blood or urine or abnormalities in imaging tests). Lab Interpretation Abnormal (test code = 28928-5) [facility] 11:22:42 Test Item Value Reference Range Interpretation Comments MAGNESIUM (test code = 1424762525) 1.4 mg/dL 1.7-2.4 L Lab Interpretation (test code = Abnormal 42068-0) [facility] 11:22:01 Test Item Value Reference Range Interpretation Comments PHOSPHORUS (test code = 8038808028) 2.3 mg/dL 2.5-5.0 L Lab Interpretation (test code = Abnormal 50080-9) [facility]NAL [id number] 21:33:07 Test Item Value Reference Range Interpretation Comments ALBUMIN (test code = 2.2 g/dL 3.5-5.0 L 9269050798) CALCIUM (test code = 7.0 mg/dL 8.6-10.6 L 9194843795) CO2 TOTAL (test code = 38 mmol/L 23-31 H 9918372982) CREATININE (test code = 0.64 mg/dL 0.60-1.25 0625766579) GLUCOSE (test code = 82 mg/dL 70-110 8057320542) K (test code = 2.7 mmol/L 3.5-5.0 LL 8734508072) NA (test code = 132 mmol/L 135-145 L 9264447671) BUN (test code = 7 mg/dL 7-23 3186494818) PHOSPHORUS (test code = 2.0 mg/dL 2.5-5.0 L 9110962669) eGFR (test code = mL/min/1.73m2 5991393693) RANDA (test code = RANDA) Association of Glomerular Filtration Rate (GFR) and Staging of Kidney Disease* + --+ --+ ------+| GFR (mL/min/1.73 m2) ?| With Kidney Damage ?| ?Without Kidney Damage+ --------+ --------+ +| ?>90 ?| ?Stage one ?| ? Normal ?+ ---+ ---+ -------+| ?60-89 ?| ?Stage two ?| ? Decreased GFR ? + --+ --+ ------+| ?30-59 ?| ?Stage three ?| ? Stage three ? + --+ --+ ------+| ?15-29 ?| ?Stage four ? | ? Stage four ?+ ---+ ---+ -------+| ?<15 (or dialysis) ? ?| ?Stage five ? | ? Stage five ?+ ---+ ---+ -------+ *Each stage assumes the associated GFR level has been in effect for at least three months. ?Stages 1 to 5, with or without kidney disease, indicate chronic kidney disease. Notes: Determination of stages one and two (with eGFR >59mL/min/1.73 m2) requires estimation of kidney damage for at least three months as defined by structural or functional abnormalities of the kidney, manifested by either:Pathological abnormalities or Markers of kidney damage (including abnormalities in the composition of the blood or urine or abnormalities in imaging tests). Lab Interpretation Abnormal (test code = 99942-2) [facility] 21:30:44 Test Item Value Reference Range Interpretation Comments MAGNESIUM (test code = 9468099245) 1.8 mg/dL 1.7-2.4 Lab Interpretation (test code = Normal 07427-5) [facility]-REACTIVE [id number] 20:08:43 Test Item Value Reference Range Interpretation Comments CRP (test code = 2733685687) 12.1 mg/dL <0.8 H Lab Interpretation (test code = Abnormal 13286-2) [facility]FR [id number] 19:28:01 Test Item Value Reference Range Interpretation Comments FREE T3 (test code = 7044829048) 2.45 pg/mL 2.77-5.27 L Lab Interpretation (test code = Abnormal 13047-5) [facility] HospitalOSMOLALITY, SERUM OR [id number] 19:10:32 Test Item Value Reference Range Interpretation Comments OSMOLALITY (test code = See_Comment L [Au tomated message] 9422881874) The system [employer] h generated this result transmitted ref erence range: 278 - 30 5 mOsm/kg. The reference range was not used to int erpret this result as normal/abnormal . Lab Interpretation (test Abnormal code = 27495-7) [facility]HIV [facility]2 AG-AB WITH [id number] 18:22:10 Test Item Value Reference Range Interpretation Comments HIV Negative Negative Semi-quantitative (test code = 51694-5) RANDA (test code = Non-reactive for HIV-1 RANDA) antigen and HIV-1/HIV-2 antibodies. ?No laboratory evidence of HIV infection. ?Repeat in 2-4 weeks if acute HIV infection is suspected. [facility] WITH [id number] 18:07:42 Test Item Value Reference Range Interpretation Comments WBC (test code = See_Comment H [Automated 6819-2) message] The sy stem which generated this result transmitted reference range : 4.20 - 10.70 10*3/?L. The reference range was not used to interpret this result as normal/abnormal . RBC (test code = See_Comment L [Automated 789-8) message] The sy stem which generated this result transmitted reference range : 4.26 - 5.52 10*6/?L. The reference range was not used to interpret this result as normal/abnormal . HGB (test code = 9.5 g/dL 12.2-16.4 L 718-7) HCT (test code = 27.8 % 38.4-49.3 L 4544-3) MCV (test code = 95.5 fL 81.7-95.6 787-2) MCH (test code = 32.6 pg 26.1-32.7 785-6) MCHC (test code = 34.2 g/dL 31.2-35.0 786-4) RDW-SD (test code = 49.8 fL 38.5-51.6 55404-6) RDW-CV (test code = 14.3 % 12.1-15.4 788-0) PLT (test code = See_Comment [Automated 777-3) message] The sy stem which generated this result transmitted reference range : 150 - 328 10*3/ ?L. The reference r harris was not used to interpret this result as normal/abnormal . MPV (test code = 11.3 fL 9.8-13.0 74031-0) IPF % (test code = 4.6 % 1.2-10.7 Platelet count 2803125807) measured by fluorescence method. NRBC/100 WBC (test See_Comment [Automat ed code = 2473426075) message] The system which generated this result transmitted reference range : 0.0 - 10.0 /100 WBCs. The refer ence range was not u sed to interpret th is result as normal/abnormal . NRBC x10^3 (test code <0.01 See_Comment [Auto mated = 0633269078) message] The s ystem which generated this result transmitted reference range : 10*3/?L. The reference range was not used to interpret this result as normal/abnormal . GRAN MAT (NEUT) % 69.4 % (test code = 770-8) IMM GRAN % (test code 0.80 % = 8985222131) LYMPH % (test code = 16.7 % 736-9) MONO % (test code = 11.9 % 5905-5) EOS % (test code = 0.8 % 713-8) BASO % (test code = 0.4 % 706-2) GRAN MAT x10^3(ANC) 9.41 10*3/uL 1.99-6.95 H (test code = 7856044710) IMM GRAN x10^3 (test 0.11 10*3/uL 0.00-0.06 H code = 4246538659) LYMPH x10^3 (test code 2.26 10*3/uL 1.09-3.23 = 731-0) MONO x10^3 (test code 1.62 10*3/uL 0.36-1.02 H = 742-7) EOS x10^3 (test code = 0.11 10*3/uL 0.06-0.53 711-2) BASO x10^3 (test code 0.06 10*3/uL 0.01-0.09 = 704-7) CURTIS CELLS (test code 2+ See_Comment A [Auto mated = 0363-1) message] The sy stem which generated this result transmitted reference range : (none). The reference range was not used to interpret this result as normal/abnormal . BANDS (test code = Increased A 4672110492) TOXIC CHANGES (test Present A code = 803-7) Lab Interpretation Abnormal (test code = 29156-8) [facility], [id number] 17:20:50 Test Item Value Reference Range Interpretation Comments VIT D 25OH (test code = <13 25-80 L 84794-8) RANDA (test code = RANDA) Deficiency: <20 ng/mLInsufficiency: 20-24 ng/mLOptimal: 25-80 ng/mL Lab Interpretation (test Abnormal code = 89353-0) [facility] HospitalHCV [id number] 17:06:16 Test Item Value Reference Range Interpretation Comments HCV Ab (test code = Presumptive Positive 41505-6) HCV Semi-Quantitative (test code = 61258-1) RANDA (test code = Presumptive positive for RANDA) HCV antibody with a low signal to cutoff ration (s/c). ?This may represent a false positive. ?This specimen has been reflexed to qualitative PCR test and submitted to [facility]. A report will be issued by that laboratory. ?If any questions, contact the Clinical Chemistry Director environmental services director at [phone]. [facility] HospitalPROCALCITONIN2021-11-05 17:01:37 Test Item Value Reference Range Interpretation Comments Procalcitonin (test 0.22 ng/mL <0.07 H code = 2599009264) RANDA (test code = RANDA) INTERPRETATION OF PROCALCITONIN RESULTS IN ADULTS >= 18 YEARS OF AGE Initiation and discontinuation of antibiotics on patients with suspected or confirmed Lower Respiratory Tract Infection in Adults >= 18 years of age. + +-------- --------+ + -----+|Procalcitonin |Interpretation ?|Antibiotic ? ? |Considerations ? |ng/mL ? | ?|recommendation | ? + +-------- --------+ + -----+| <0.1 ? | Bacterial ? ? ?| Strongly ? ? ?| ? | ?| infection very | discouraged ? | Overruling: ? | ?| unlikely ? ? ? | ? | ? Clinically unstable ? ? ? + +-------- --------+ + ? High risk for adverse ? ? | <0.25 ?| Bacterial ? ? ?| Discouraged ? | ? outcome ? | ?| infection ? ? ?| ? | ? SEE IMPORTANT NOTE ?| ?| unlikely ? ? ? | ? | ? + +-------- --------+ + -----+| >=0.25 ? ? ? | Bacterial ? ? ?| Encouraged ? ?| ? | ?| infection ? ? ?| ? | ? | ?| likely ? | ? | Consider treatment failure ?+ +------- ---------+ -+ if levels does not decrease | >0.5 ? | Bacterial ? ? ?| Strongly ? ? ?| appropriately ? | ?| infection very | encouraged ? ?| ? | ?| likely ? | ? | ? + +-------- --------+ + -----+ Discontinuation of antibiotics in high-acuity patients with suspected or confirmed sepsis in Adults >= 18 years of age. + +-------- --------+ + -----+|Procalcitonin |Interpretation ?|Antibiotic ? ? |Considerations ? |ng/mL ? | ?|recommendation | ? + +-------- --------+ + -----+| <0.25 ?| Bacterial ? ? ?| Strongly ? ? ?| ? | ?| infection very | discouraged ? | Overruling: ? | ?| unlikely ? ? ? | ? | ? Clinically unstable ? ? ? + +-------- --------+ + ? High risk for adverse ? ? | <0.5 or drop | Bacterial ? ? ?| Discouraged ? | ? outcome ? | >80% from ? ?| infection ? ? ?| ? | ? SEE IMPORTANT NOTE ?| highest PCT ?| unlikely ? ? ? | ? | ? | level ?| ?| ? | ? + +-------- --------+ + -----+| >=0.5 ?| Bacterial ? ? ?| Encouraged ? ?| ? | ?| infection ? ? ?| ? | ? | ?| likely ? | ? | Consider treatment failure ?+ +------- ---------+ -+ if levels does not decrease | >1.0 ? | Bacterial ? ? ?| Strongly ? ? ?| appropriately ? | ?| infection very | encouraged ? ?| ? | ?| likely ? | ? | ? + +-------- --------+ + -----+ Percentage of drop of Procalcitonin calculation for Discontinuation of antibiotics in high-acuity patients with suspected or confirmed sepsis in Adults >= 18 years of age. ? Procalcitonin highest{}-Procalcitonin current{}Delta Procalcitonin = x100% ? Procalcitonin current {} IMPORTANT NOTE: Procalcitonin may be elevated without bacterial infection by physiologic stress related to trauma, baez, chronic dialysis, metastatic cancer, surgery in the past seven days, malaria, some fungal infections, and some forms of vasculitis. The interpretation algorithm may not apply to patients with immunosuppression (equivalent of >10 mg of prednisone daily), HIV with CD4 cell count < 350 cells/mm3, active malignancy on systemic chemotherapy, solid organ transplant or hematopoietic stem cell transplantation, or hospital acquired pneumonia. Additionally, some clinical trials of procalcitonin have excluded patients with shock requiring vasopressor use, acute respiratory failure requiring mechanical ventilation, or those with known lung abscess/empyema. For further information please refer to:[email or web address] Lab Interpretation Abnormal (test code = 56007-7) [facility] HospitalVIT[facility]IN B12, [id number] 16:34:54 Test Item Value Reference Range Interpretation Comments VIT B12 (test code = 834 pg/mL 240-930 6677603138) RANDA (test code = RANDA) Biotin has been reported to cause a positive bias, interpret results relative to patient's use of biotin. Lab Interpretation (test Normal code = 75393-3) [facility] HospitalFOLATE2021-[facility] 16:34:54 Test Item Value Reference Range Interpretation Comments FOLATE SER (test code = 6582825798) 4.9 ng/mL 3.0-20.0 Lab Interpretation (test code = Normal 41043-7) [facility] HospitalINTACT PTH CALCIUM [id number] 16:25:35 Test Item Value Reference Range Interpretation Comments PTH-INTACT (test code = 101.3 pg/mL 12.0-88.0 H 6780847894) PTH-CA Interpretation Furthe r clinical (test code = 7030812292) josh a needed for interpretation. CALCIUM (test code = 7.3 mg/dL 8.6-10.6 L 4256272951) Lab Interpretation (test Abnormal code = 10552-0) [facility] HospitalHEPATITIS B SURFACE [id number] 16:17:15 Test Item Value Reference Range Interpretation Comments HBsAB (test code = Negative 8399452770) HBsAb mIU/mL Semi-Quantitative (test code = 5143064299) RANDA (test code = Interpretation: RANDA) ?Hepatitis B Surface Antibody ? Negative - Patient is considered to be not immune to infection with HBV. ? ? Positive - Anti-HBs detected at greater than or equal to 12 mIU/mL. ?Patient is considered to be immune to infection with HBV. ? [facility] HospitalFERRITIN [id number] 16:07:12 Test Item Value Reference Range Interpretation Comments FERRITIN (test code = 351.0 ng/mL 18.0-464.0 7995141119) RANDA (test code = RANDA) Biotin has been reported to cause a negative bias, interpret results relative to patient's use of biotin. Lab Interpretation (test Normal code = 29472-6) [facility] HospitalCORTISOL [id number] 16:00:52 Test Item Value Reference Range Interpretation Comments SAMARA AM (test code = 19.6 ug/dL 4.5-23.0 2272880538) RANDA (test code = RANDA) Biotin has been reported to cause a positive bias, interpret results relative to patient's use of biotin. Lab Interpretation (test Normal code = 32588-9) [facility] HospitalHEPATITIS B SURFACE [id number] 15:59:31 Test Item Value Reference Range Interpretation Comments HBsAg Semi-Quantitative (test code = Negative Negative 5195-3) [facility] HospitalPREALBUMIN2021-11-05 15:47:05 Test Item Value Reference Range Interpretation Comments PALB (test code = 71694-9) <3.0 18.0-45.0 L Lab Interpretation (test code = Abnormal 45709-8) [facility] HospitalFREE [id number] 15:43:31 Test Item Value Reference Range Interpretation Comments FREE T4 (test code = See_Comment [Autom ated message] 2764995902) The system [employer] generated this result transmitted ref erence range: 0.78 - 2 .20 ng/dL:. The ref erence range was not u sed to interpret this result as normal/abnor mal. Lab Interpretation (test Normal code = 38477-1) [facility] HospitalN-TERMINAL [id number] 15:39:06 Test Item Value Reference Range Interpretation Comments NT-proBNP (test code 854 pg/mL See_Comment H [Autom ated = 2490113568) message] The system which generated this result transmitted reference range : <=125. The reference range was not used to interpret this result as normal/abnormal . RANDA (test code = RANDA) Biotin has been reported to cause a negative bias, interpret results relative to patient's use of biotin. Lab Interpretation Abnormal (test code = 16148-6) [facility] HospitalIRON [id number] 15:36:49 Test Item Value Reference Range Interpretation Comments IRON (test code = 8940939398) 39 ug/dL 50-160 L TIBC (test code = 1560191021) 117 ug/dL 250-410 L % FE SAT (test code = 3054222430) 33 % 20-50 Lab Interpretation (test code = Abnormal 85542-7) [facility] HospitalMAGNESIUM2021-11-05 15:28:10 Test Item Value Reference Range Interpretation Comments MAGNESIUM (test code = 2.1 mg/dL 1.7-2.4 Sligh t hemolysis 8977522733) Lab Interpretation (test Normal code = 40216-5) [facility] HospitalPHOSPHORUS2021-11-05 15:28:10 Test Item Value Reference Range Interpretation Comments PHOSPHORUS (test code = 4464389584) 3.0 mg/dL 2.5-5.0 Lab Interpretation (test code = Normal 55103-6) [facility] HospitalLIPID PANEL (75242)(TOTAL CHOLESTEROL, TRIGLYCERIDES, HDL)2021-01-05 15:28:09 Test Item Value Reference Range Interpretation Comments CHOL (test code = 102 mg/dL 120-200 L 3904078485) HDL (test code = 23 mg/dL >40 L 7228283134) HDLC RATIO (test code = See_Comment [Au tomated message] 9262090288) The system [employer] generated this result transmit brisa reference range : <=5.0. The refe rence range was not u sed to interpret th is result as normal/abnormal . TRIG (test code = 117 mg/dL 30-170 6637427169) LDL CHOL (test code = 56 mg/dL See_Comment [Auto mated message] 96054-4) The system [employer] generated this result transmit brisa reference range : <=160. The refe rence range was not u sed to interpret th is result as normal/abnormal . VLDL (test code = 23 mg/dL 5-60 0851978681) Lab Interpretation (test Abnormal code = 86778-8) [facility] HospitalDIFF CONSULT [id number] 15:25:21 LEUKOCYTOSIS WITH ABSOLUTE NEUTROPHILIA, LYMPHOCYTOSIS, AND MONOCYTOSIS. NO INCREASE IN BLASTS IDENTIFIED. MACROCYTIC NORMOCHROMIC ANEMIA. THROMBOCYTOSIS. [facility] HospitalIONIZED [id number] 15:24:10 Test Item Value Reference Range Interpretation Comments IONIZED CA (test code = 3.50 mg/dL 4.50-5.30 L 9706796937) PH SERUM (test code = 4191463216) 7.35-7.45 H Lab Interpretation (test code = Abnormal 68611-3) [facility] HospitalTROPONIN [id number] 12:49:50 Test Item Value Reference Interpretation Comments Range TROPONIN I (test 0.008 ng/mL See_Comment [Automated code = 3068011190) message] The system which generated this result transmitted reference range : <=0.034. The reference range was not used to interpret this result as normal/abnormal . RANDA (test code = Reference (Normal) RANDA) Range (defined by the 99th percentile reference limit): <= 0.034 ng/mL Note: Cardiac troponin begins to rise 3-4 hours after the onset of ischemia. Repeat in 4-6 hours if the sample was drawn within 3-4 hours of the onset of the symptom and found normal. Diagnosis of myocardial injury is made with acute changes in cTn concentrations with at least one serial sample above the 99th percentile upper reference limit (URL), taken together with the patient's clinical presentation. Biotin has been reported to cause a negative bias, interpret results relative to patient's use of biotin. Lab Interpretation Normal (test code = 68772-1) [facility] HospitalN-TERMINAL [id number] 12:47:52 Test Item Value Reference Range Interpretation Comments NT-proBNP (test code 846 pg/mL See_Comment H [Autom ated = 9482989723) message] The system which generated this result transmitted reference range : <=125. The reference range was not used to interpret this result as normal/abnormal . RANDA (test code = RANDA) Biotin has been reported to cause a negative bias, interpret results relative to patient's use of biotin. Lab Interpretation Abnormal (test code = 21233-0) [facility] HospitalCOMP. METABOLIC PANEL (25648)2021-01-05 12:47:42 Test Item Value Reference Range Interpretation Comments NA (test code = 130 mmol/L 135-145 L 9653274537) K (test code = 2.8 mmol/L 3.5-5.0 LL 6730640851) CL (test code = 90 mmol/L 98-108 L 5723903504) CO2 TOTAL (test code = 38 mmol/L 23-31 H 0518298114) AGAP (test code = 2-16 6490212257) BUN (test code = 7 mg/dL 7-23 8590348495) GLUCOSE (test code = 88 mg/dL 70-110 2969134199) CREATININE (test code = 0.61 mg/dL 0.60-1.25 6886988979) TOTAL BILI (test code = 0.7 mg/dL 0.1-1.0 6078010318) CALCIUM (test code = 7.3 mg/dL 8.6-10.6 L 9107032133) T PROTEIN (test code = 5.1 g/dL 6.3-8.2 L 6106556165) ALBUMIN (test code = 2.3 g/dL 3.5-5.0 L 4228989498) ALK PHOS (test code = 51 U/L 34-122 7862481134) ALTv (test code = 8 U/L 5-50 1742-6) AST(SGOT) (test code = 26 U/L 13-40 1241459784) eGFR (test code = mL/min/1.73m2 1854864960) RANDA (test code = RANDA) Association of Glomerular Filtration Rate (GFR) and Staging of Kidney Disease* + --+ --+ ------+| GFR (mL/min/1.73 m2) ?| With Kidney Damage ?| ?Without Kidney Damage+ --------+ --------+ +| ?>90 ?| ?Stage one ?| ? Normal ?+ ---+ ---+ -------+| ?60-89 ?| ?Stage two ?| ? Decreased GFR ? + --+ --+ ------+| ?30-59 ?| ?Stage three ?| ? Stage three ? + --+ --+ ------+| ?15-29 ?| ?Stage four ? | ? Stage four ?+ ---+ ---+ -------+| ?<15 (or dialysis) ? ?| ?Stage five ? | ? Stage five ?+ ---+ ---+ -------+ *Each stage assumes the associated GFR level has been in effect for at least three months. ?Stages 1 to 5, with or without kidney disease, indicate chronic kidney disease. Notes: Determination of stages one and two (with eGFR >59mL/min/1.73 m2) requires estimation of kidney damage for at least three months as defined by structural or functional abnormalities of the kidney, manifested by either:Pathological abnormalities or Markers of kidney damage (including abnormalities in the composition of the blood or urine or abnormalities in imaging tests). Lab Interpretation Abnormal (test code = 31314-9) [facility] Test Item Value Reference Range Interpretation Comments MAGNESIUM (test code = 3722544309) 2.2 mg/dL 1.7-2.4 Lab Interpretation (test code = Normal 47430-5) [facility] HospitalPHOSPHORUS2021-11-05 12:45:29 Test Item Value Reference Range Interpretation Comments PHOSPHORUS (test code = 1667667203) 3.0 mg/dL 2.5-5.0 Lab Interpretation (test code = Normal 08792-6) [facility] METABOLIC PANEL (NA, K, CL, CO2, GLUCOSE, BUN, CREATININE, CA)2021-01-05 08:27:16 Test Item Value Reference Range Interpretation Comments NA (test code = 133 mmol/L 135-145 L 8640995284) K (test code = 2.3 mmol/L 3.5-5.0 LL 9068076781) CL (test code = 89 mmol/L 98-108 L 3166322618) CO2 TOTAL (test code = 38 mmol/L 23-31 H 5693846795) AGAP (test code = 2-16 1358059932) BUN (test code = 8 mg/dL 7-23 3465918506) GLUCOSE (test code = 90 mg/dL 70-110 3028900970) CREATININE (test code = 0.67 mg/dL 0.60-1.25 2227496515) CALCIUM (test code = 6.9 mg/dL 8.6-10.6 L 6825093371) eGFR (test code = mL/min/1.73m2 8909074804) RANDA (test code = RANDA) Association of Glomerular Filtration Rate (GFR) and Staging of Kidney Disease* + --+ --+ ------+| GFR (mL/min/1.73 m2) ?| With Kidney Damage ?| ?Without Kidney Damage+ --------+ --------+ +| ?>90 ?| ?Stage one ?| ? Normal ?+ ---+ ---+ -------+| ?60-89 ?| ?Stage two ?| ? Decreased GFR ? + --+ --+ ------+| ?30-59 ?| ?Stage three ?| ? Stage three ? + --+ --+ ------+| ?15-29 ?| ?Stage four ? | ? Stage four ?+ ---+ ---+ -------+| ?<15 (or dialysis) ? ?| ?Stage five ? | ? Stage five ?+ ---+ ---+ -------+ *Each stage assumes the associated GFR level has been in effect for at least three months. ?Stages 1 to 5, with or without kidney disease, indicate chronic kidney disease. Notes: Determination of stages one and two (with eGFR >59mL/min/1.73 m2) requires estimation of kidney damage for at least three months as defined by structural or functional abnormalities of the kidney, manifested by either:Pathological abnormalities or Markers of kidney damage (including abnormalities in the composition of the blood or urine or abnormalities in imaging tests). Lab Interpretation Abnormal (test code = 31528-0) [facility] HospitalTROPONIN [id number] 08:26:40 Test Item Value Reference Interpretation Comments Range TROPONIN I (test 0.005 ng/mL See_Comment [Automated code = 8937885614) message] The system which generated this result transmitted reference range : <=0.034. The reference range was not used to interpret this result as normal/abnormal . RANDA (test code = Reference (Normal) RANDA) Range (defined by the 99th percentile reference limit): <= 0.034 ng/mL Note: Cardiac troponin begins to rise 3-4 hours after the onset of ischemia. Repeat in 4-6 hours if the sample was drawn within 3-4 hours of the onset of the symptom and found normal. Diagnosis of myocardial injury is made with acute changes in cTn concentrations with at least one serial sample above the 99th percentile upper reference limit (URL), taken together with the patient's clinical presentation. Biotin has been reported to cause a negative bias, interpret results relative to patient's use of biotin. Lab Interpretation Normal (test code = 23079-4) [facility] HospitalLACTATE [id number] 08:15:16 Test Item Value Reference Range Interpretation Comments LDH (test code = 5349957255) 538 U/L 300-600 Lab Interpretation (test code = Normal 84009-3) [facility] HospitalSEDIMENTATION [id number] 08:00:44 Test Item Value Reference Range Interpretation Comments ESR (test code = See_Comment H [Automated message] 3359646327) The system [employer] generated this result transmitted ref erence range: 0 - 10 m m/HR. The reference r harris was not used to interpret this result as normal/abnor mal. Lab Interpretation (test Abnormal code = 58854-1) [facility] HospitalD-[id number] 07:39:54 Test Item Value Reference Interpretation Comments Range D-DIMER (test code = See_Comment H [Autom ated 6470754639) message] The system which generated this result transmitted reference range : <0.41 ?g/mL (FEU). The reference range was not used to interpret this result as normal/abnormal . RANDA (test code = This test may be RANDA) used in conjunction with a clinical pretest probability (PTP) assessment model to exclude venous thromboembolism (VTE) in patients suspected of deep venous thrombosis (DVT) and pulmonary embolism (PE) A D-Dimer value less than 0.50 ?g/ml (FEU) has a negative predicative value of 96 to 100% (95% CI)and 97 to 100% (95% CI) as an aid in the diagnosis of deep vein thrombosis (DVT) and pulmonary embolism when there is low or moderate pretest probability of PE or DVT. D-Dimer values are expressed in initial fibrinogen equivalent units (FEU)" The assay results should be used with other information, including the clinical context, in forming a diagnosis. Lab Interpretation Abnormal (test code = 28316-7) [facility] HospitalPROTHROMBIN TIME / [id number] 07:35:33 Test Item Value Reference Range Interpretation Comments PROTIME PATIENT (test See_Comment [Auto mated message] code = 5964-2) The system [facility] generated this result transmitted ref erence range: 12.0 - 1 4.7 Seconds. The re ference range was not u sed to interpret this result as normal/abnor mal. INR (test code = 6301-6) Nor mal INR <1.1; Warfarin Therap eutic range 2.0 to 3. 0 or 2.5 to 3.5, dep ending upon the indica tions. Lab Interpretation (test Normal code = 41163-7) [facility] HospitalGLYCOSYLATED HEMOGLOBIN (A1C)2021-01-05 03:06:30 Test Item Value Reference Range Interpretation Comments HGB A1C (test code = 5.3 % 4.0-5.7 4548-4) RANDA (test code = RANDA) Reference RangesNormal: <5.7%Prediabetes: 5.7 - 6.4%Diabetes: > 6.5% Lab Interpretation (test Normal code = 96400-3) [facility] HospitalTHYROID STIMULATING [id number] 00:59:32 Test Item Value Reference Range Interpretation Comments TSH (test code = See_Comment H [Automated message] 1570035837) The system [employer] generated this result transmitted ref erence range: 0.45 - 4 .70 mIU/L. The refe rence range was not u sed to interpret this result as normal/abnor mal. Lab Interpretation (test Abnormal code = 16164-1) [facility] HospitalABORH Confirmation (Lab Only)2021-01-05 00:40:16 Test Item Value Reference Range Interpretation Comments ABO & RH (test code A Positive Performe d at [facility] = 20) Laboratory Serv [facility] [place] [id number] Free: [phone] A No. [id number] [facility] HospitalCREATINE [id number] 00:27:52 Test Item Value Reference Range Interpretation Comments CK (test code = 7448704172) 76 U/L 33-194 Lab Interpretation (test code = Normal 54157-2) [facility] With [id number] 23:07:54 Test Item Value Reference Range Interpretation Comments WBC (test code = See_Comment H [Automated 4834-2) message] The system which generated this result transmit brisa reference range : 4.20 - 10.70 10*3/?L. The reference range was not used to interpret this result as normal/abnormal . RBC (test code = See_Comment L [Automated 033-8) message] The system which generated this result transmit brisa reference range : 4.26 - 5.52 10*6/?L. The reference range was not used to interpret this result as normal/abnormal . HGB (test code = 11.5 g/dL 12.2-16.4 L 718-7) HCT (test code = 33.6 % 38.4-49.3 L 4544-3) MCV (test code = 96.6 fL 81.7-95.6 H 787-2) MCH (test code = 33.0 pg 26.1-32.7 H 785-6) MCHC (test code = 34.2 g/dL 31.2-35.0 786-4) RDW-SD (test code = 49.6 fL 38.5-51.6 44711-0) RDW-CV (test code = 14.0 % 12.1-15.4 788-0) PLT (test code = See_Comment H [Automated 777-3) message] The system which generated this result transmit brisa reference range : 150 - 328 10*3/ ?L. The reference range was not u sed to interpret th is result as normal/abnormal . MPV (test code = 10.9 fL 9.8-13.0 55397-6) NRBC/100 WBC (test See_Comment [Automat ed code = 8267642318) message] The system which generated this result transmit brisa reference range : 0.0 - 10.0 /100 WBCs. The reference range was not used to interpret this result as normal/abnormal . NRBC x10^3 (test code <0.01 See_Comment [Auto mated = 5418179982) message] The system which generated this result transmit brisa reference range : 10*3/?L. The reference range was not used to interpret this result as normal/abnormal . GRAN MAT (NEUT) % 62.0 % (test code = 770-8) IMM GRAN % (test code 1.60 % = 5704039229) LYMPH % (test code = 22.4 % 736-9) MONO % (test code = 12.8 % 5905-5) EOS % (test code = 0.7 % 713-8) BASO % (test code = 0.5 % 706-2) GRAN MAT x10^3(ANC) 10.09 10*3/uL 1.99-6.95 H (test code = 6547969342) IMM GRAN x10^3 (test 0.26 10*3/uL 0.00-0.06 H code = 7475731595) LYMPH x10^3 (test code 3.64 10*3/uL 1.09-3.23 H = 731-0) MONO x10^3 (test code 2.09 10*3/uL 0.36-1.02 H = 742-7) EOS x10^3 (test code = 0.11 10*3/uL 0.06-0.53 711-2) BASO x10^3 (test code 0.08 10*3/uL 0.01-0.09 = 704-7) Lab Interpretation Abnormal (test code = 43816-8) [facility]. Metabolic Panel ([id number])2021-01-04 23:02:28 Test Item Value Reference Range Interpretation Comments NA (test code = 131 mmol/L 135-145 L 1166294067) K (test code = 2.6 mmol/L 3.5-5.0 LL 4329648109) CL (test code = 83 mmol/L 98-108 L 5973181778) CO2 TOTAL (test code = 25 mmol/L 23-31 8286905951) AGAP (test code = 2-16 H 5005622339) BUN (test code = 7 mg/dL 7-23 3539352038) GLUCOSE (test code = 183 mg/dL 70-110 H 5287555621) CREATININE (test code = 0.72 mg/dL 0.60-1.25 1542049223) TOTAL BILI (test code = 1.4 mg/dL 0.1-1.1 H 1765402743) CALCIUM (test code = 7.6 mg/dL 8.6-10.6 L 1192003108) T PROTEIN (test code = 6.1 g/dL 6.3-8.2 L 2750972675) ALBUMIN (test code = 3.1 g/dL 3.5-5.0 L 1492795826) ALK PHOS (test code = 70 U/L 34-122 0586335868) ALTv (test code = 30 U/L 5-50 1742-6) AST(SGOT) (test code = 39 U/L 13-40 6822889154) eGFR (test code = mL/min/1.73m2 1491906015) RANDA (test code = RANDA) Association of Glomerular Filtration Rate (GFR) and Staging of Kidney Disease* + --+ --+ ------+| GFR (mL/min/1.73 m2) ?| With Kidney Damage ?| ?Without Kidney Damage+ --------+ --------+ +| ?>90 ?| ?Stage one ?| ? Normal ?+ ---+ ---+ -------+| ?60-89 ?| ?Stage two ?| ? Decreased GFR ? + --+ --+ ------+| ?30-59 ?| ?Stage three ?| ? Stage three ? + --+ --+ ------+| ?15-29 ?| ?Stage four ? | ? Stage four ?+ ---+ ---+ -------+| ?<15 (or dialysis) ? ?| ?Stage five ? | ? Stage five ?+ ---+ ---+ -------+ *Each stage assumes the associated GFR level has been in effect for at least three months. ?Stages 1 to 5, with or without kidney disease, indicate chronic kidney disease. Notes: Determination of stages one and two (with eGFR >59mL/min/1.73 m2) requires estimation of kidney damage for at least three months as defined by structural or functional abnormalities of the kidney, manifested by either:Pathological abnormalities or Markers of kidney damage (including abnormalities in the composition of the blood or urine or abnormalities in imaging tests). Lab Interpretation Abnormal (test code = 05648-2) [facility] ONCE [id number] 23:01:59 Test Item Value Reference Range Interpretation Comments ABO & RH (test code A Positive Performe d at [facility] = 20) Laboratory [facility] [place], [place] [id number] Free: [phone] A No. [id number] IAT (test code = Negative Performed a t [facility] 1185) Laboratory [facility] [place], [place] [address]Toll Free: [phone] A No. [id number] [facility] [id number] 22:53:30 Test Item Value Reference Interpretation Comments Range TROPONIN I (test 0.007 ng/mL See_Comment [Automated code = 3098959734) message] The system which generated this result transmitted reference range : <=0.034. The reference range was not used to interpret this result as normal/abnormal . RANDA (test code = Reference (Normal) RANDA) Range (defined by the 99th percentile reference limit): <= 0.034 ng/mL Note: Cardiac troponin begins to rise 3-4 hours after the onset of ischemia. Repeat in 4-6 hours if the sample was drawn within 3-4 hours of the onset of the symptom and found normal. Diagnosis of myocardial injury is made with acute changes in cTn concentrations with at least one serial sample above the 99th percentile upper reference limit (URL), taken together with the patient's clinical presentation. Biotin has been reported to cause a negative bias, interpret results relative to patient's use of biotin. 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 Fatalities Reported [facility] Whole [id number] 22:33:16 Test Item Value Reference Range Interpretation Comments LACTIC ACID (test code = 12.19 mmol/L 0.50-2.20 H 0222782331) Lab Interpretation (test code = Abnormal 50264-6) [facility] Whole [id number] 22:22:14 Test Item Value Reference Range Interpretation Comments LACTIC ACID (test code = 15.52 mmol/L 0.50-2.20 H 4216619885) Lab Interpretation (test code = Abnormal 12707-7) [facility]- XR FLUOROSCOPY 0-60 [id number] 09:06:00 [facility] : 1955 Sex: M FAX: Miki Willian Alicea DPM [phone] [place]: St: [facility] FAX: Miki LewisauraidaniarejiKendal hammond [phone] Name: MAGGIE HOGAN [facility] : 1955 Age/S: 64/M [address] [facility] Unit #: [id number] Loc: E.[address] [place] [address] Phys: Willian Alicea DPM [id number] Acct: [id number] Dis Date: Status: ADM IN PHONE #: [phone] Exam Date: 01/31/2020 0630 FAX #: [phone] Reason: SCREW REMOVAL FROM LT ANKLE EXAMS: CPT CODE: [id number] XR FLUOROSCOPY 0-60 MIN 42292 EXAM: - XR FLUOROSCOPY 0-60 MIN INDICATION: SCREW REMOVAL FROM LT ANKLE LOCATION: H62 Impression: Fluoroscopy time 27seconds. No images have been provided. at 0906 Reported and signed by: Kelvin Morrell M.D. CC: Willian Alicea DPM; Jaycee Roldan MD Technologist: MEHRAN MART Trnsantiagord Date/Time/By: 02/01/2020 (0906) : By: [email or web address] PAGE 1 Signed Report FAX: Willian Lezama DPM [phone] [place]: [facility]: [facility] FAX: Miki LewisauraidaniarejistephanyKendal [phone] Name: MAGGIE HOGAN [facility] : 1955 Age/S: 64/M [address] [facility] Unit #: [id number] Loc: [address] [place], [place] Phys: CarlosNasima patelSheila DPM [id number] Acct: [id number] Dis Date: Status: ADM IN PHONE #: [phone] Exam Date: 01/31/2020629 FAX #: [phone] Reason: SCREW REMOVAL FROM LT ANKLE EXAMS: CPT CODE: [id number] XR FLUOROSCOPY 0-60 MIN 89677 (Continued) Orig Print D/T: S: 02/01/2020 (0909) PAGE 2 Signed ReportBASIC METABOLIC [id number] 02:52:00 Test Item Value Reference Range Interpretation Comments SODIUM (test code = NA) 138 mmol/l 134.0-147.0 N POTASSIUM (test code = K) 4.0 mmol/L 3.6-5.2 N CHLORIDE (test code = CL) 103 mmol/l 98.0-107.0 N CARBON DIOXIDE (test code = CO2) 28.9 mmol/l 21.0-33.0 N ANION GAP (test code = GAP) 10.1 0-20 N GLUCOSE (test code = GLU) 105 mg/dl 70.0-110.0 N BLOOD UREA NITROGEN (test code = 15 mg/dl 7.0-18.0 N BUN) CREATININE (test code = CREAT) 0.77 mg/dL 0.60-1.30 N GFR NON BLACK (test code = 108 mL/min 80-90 H GFRNONBLACK) GFR BLACK (test code = GFRBLACK) 131 mL/min 97-109 H CALCIUM (test code = CA) 9.7 mg/dl 8.0-10.5 N BASIC METABOLIC [id number] 15:26:00 Test Item Value Reference Range Interpretation Comments SODIUM (test code = NA) 140 mmol/l 134.0-147.0 N POTASSIUM (test code = K) 4.2 mmol/L 3.6-5.2 N CHLORIDE (test code = CL) 103 mmol/l 98.0-107.0 N CARBON DIOXIDE (test code = CO2) 30.4 mmol/l 21.0-33.0 N ANION GAP (test code = GAP) 10.8 0-20 N GLUCOSE (test code = GLU) 113 mg/dl 70.0-110.0 H BLOOD UREA NITROGEN (test code = 16 mg/dl 7.0-18.0 N BUN) CREATININE (test code = CREAT) 0.63 mg/dL 0.60-1.30 N GFR NON BLACK (test code = 137 mL/min 80-90 H GFRNONBLACK) GFR BLACK (test code = GFRBLACK) 165 mL/min 97-109 H CALCIUM (test code = CA) 9.0 mg/dl 8.0-10.5 N CBC W/AUTO [id number] 15:20:00 Test Item Value Reference Range Interpretation Comments WHITE BLOOD CELL (test code = 8.0 K/mm3 4.5-11.0 N WBC) RED BLOOD CELL (test code = 3.04 M/mm3 4.40-5.90 L RBC) HEMOGLOBIN (test code = HGB) 10.6 gm/dL 13.0-17.0 L HEMATOCRIT (test code = HCT) 33.7 % 36.0-48.0 L MEAN CELL VOLUME (test code = 110.9 UM3 80.0-94.0 H MCV) MEAN CELL HGB (test code = MCH) 34.9 UUG 25.5-32.5 H MEAN CELL HGB CONCETRATION 31.5 gm/dL 29.0-35.5 N (test code = MCHC) RED CELL DISTRIBUTION WIDTH 14.4 % 11.5-15.0 N (test code = RDW) RED CELL DISTRIBUTION WIDTH SD 59.1 fL 34.8-50.2 H (test code = RDW-SD) PLATELET COUNT (test code = 335 K/mm3 150-400 N PLT) MEAN PLATELET VOLUME (test code 10.8 fl 7.4-10.4 H = MPV) NEUTROPHIL % (test code = NT%) 51.2 % 49.0-76.0 N IMMATURE GRANULOCYTE % (test 0.9 % 0.0-0.4 H code = IG%) LYMPHOCYTE % (test code = LY%) 26.0 % 23.0-38.0 N MONOCYTE % (test code = MO%) 15.1 % 1.0-10.0 H EOSINOPHIL % (test code = EO%) 5.5 % 1.0-5.0 H BASOPHIL % (test code = BA%) 1.3 % 0.0-1.0 H NUCLEATED RBC % (test code = 0.0 % 0.0-0.1 N NRBC%) NEUTROPHIL # (test code = NT#) 4.1 K/mm3 2.4-6.3 N IMMATURE GRANULOCYTE # (test 0.07 x10 3/uL 0.00-0.07 N code = IG#) LYMPHOCYTE # (test code = LY#) 2.1 K/mm3 1.2-4.0 N MONOCYTE # (test code = MO#) 1.2 K/mm3 0.0-0.6 H EOSINOPHIL # (test code = EO#) 0.4 K/MM3 0.0-0.7 N BASOPHIL # (test code = BA#) 0.1 K/mm3 0.0-0.2 N NUCLEATED RBC # (test code = 0.00 X10 3uL 0.00-0.01 N NRBC#) COVID 19 Asymptomatic IH [id number] 14:30:00 Test Item Value Reference Range Interpretation Comments COVID 19 NEGATIVE NEGATIVE Negative result s should be Asymptomatic IH AG treated a s presumptive and (test code = ifinconsistent with COVNONPUIAG) clinical signs and symptoms, or ne cessaryfor patient managem ent, should be tested with an alternativemole cular assay. Negative results do not preclude [id number] tion and should not be u sed as the sole basis forp atient management deci sions. Negative result s should beconsidered in the context of a pa tient's recent exposure s,history, presence of cli nical signs and symptoms consistentwith COVID-19. Specimen comments: If not done [facility] W/AUTO [id number] 10:32:00 Test Item Value Reference Range Interpretation Comments WHITE BLOOD CELL (test code = 7.5 K/mm3 4.5-11.0 N WBC) RED BLOOD CELL (test code = 2.93 M/mm3 4.40-5.90 L RBC) HEMOGLOBIN (test code = HGB) 10.1 gm/dL 13.0-17.0 L HEMATOCRIT (test code = HCT) 32.3 % 36.0-48.0 L MEAN CELL VOLUME (test code = 110.2 UM3 80.0-94.0 H MCV) MEAN CELL HGB (test code = MCH) 34.5 UUG 25.5-32.5 H MEAN CELL HGB CONCETRATION 31.3 gm/dL 29.0-35.5 N (test code = MCHC) RED CELL DISTRIBUTION WIDTH 14.2 % 11.5-15.0 N (test code = RDW) RED CELL DISTRIBUTION WIDTH SD 58.4 fL 34.8-50.2 H (test code = RDW-SD) PLATELET COUNT (test code = 340 K/mm3 150-400 N PLT) MEAN PLATELET VOLUME (test code 10.4 fl 7.4-10.4 N = MPV) NEUTROPHIL % (test code = NT%) 52.2 % 49.0-76.0 N IMMATURE GRANULOCYTE % (test 0.8 % 0.0-0.4 H code = IG%) LYMPHOCYTE % (test code = LY%) 26.2 % 23.0-38.0 N MONOCYTE % (test code = MO%) 14.5 % 1.0-10.0 H EOSINOPHIL % (test code = EO%) 5.0 % 1.0-5.0 N BASOPHIL % (test code = BA%) 1.3 % 0.0-1.0 H NUCLEATED RBC % (test code = 0.0 % 0.0-0.1 N NRBC%) NEUTROPHIL # (test code = NT#) 3.9 K/mm3 2.4-6.3 N IMMATURE GRANULOCYTE # (test 0.06 x10 3/uL 0.00-0.07 N code = IG#) LYMPHOCYTE # (test code = LY#) 2.0 K/mm3 1.2-4.0 N MONOCYTE # (test code = MO#) 1.1 K/mm3 0.0-0.6 H EOSINOPHIL # (test code = EO#) 0.4 K/MM3 0.0-0.7 N BASOPHIL # (test code = BA#) 0.1 K/mm3 0.0-0.2 N NUCLEATED RBC # (test code = 0.00 X10 3uL 0.00-0.01 N NRBC#) MORPHOLOGY COMMENT (test code = NM MOC) PLATELET ESTIMATE (test code = ADQ PLTEST) CBC W/AUTO [id number] 08:12:00 Test Item Value Reference Range Interpretation Comments WHITE BLOOD CELL (test code = 7.5 K/mm3 4.5-11.0 N WBC) RED BLOOD CELL (test code = 2.93 M/mm3 4.40-5.90 L RBC) HEMOGLOBIN (test code = HGB) 10.1 gm/dL 13.0-17.0 L HEMATOCRIT (test code = HCT) 32.3 % 36.0-48.0 L MEAN CELL VOLUME (test code = 110.2 UM3 80.0-94.0 H MCV) MEAN CELL HGB (test code = MCH) 34.5 UUG 25.5-32.5 H MEAN CELL HGB CONCETRATION 31.3 gm/dL 29.0-35.5 N (test code = MCHC) RED CELL DISTRIBUTION WIDTH 14.2 % 11.5-15.0 N (test code = RDW) RED CELL DISTRIBUTION WIDTH SD 58.4 fL 34.8-50.2 H (test code = RDW-SD) PLATELET COUNT (test code = 340 K/mm3 150-400 N PLT) MEAN PLATELET VOLUME (test code 10.4 fl 7.4-10.4 N = MPV) NEUTROPHIL % (test code = NT%) 52.2 % 49.0-76.0 N IMMATURE GRANULOCYTE % (test 0.8 % 0.0-0.4 H code = IG%) LYMPHOCYTE % (test code = LY%) 26.2 % 23.0-38.0 N MONOCYTE % (test code = MO%) 14.5 % 1.0-10.0 H EOSINOPHIL % (test code = EO%) 5.0 % 1.0-5.0 N BASOPHIL % (test code = BA%) 1.3 % 0.0-1.0 H NUCLEATED RBC % (test code = 0.0 % 0.0-0.1 N NRBC%) NEUTROPHIL # (test code = NT#) 3.9 K/mm3 2.4-6.3 N IMMATURE GRANULOCYTE # (test 0.06 x10 3/uL 0.00-0.07 N code = IG#) LYMPHOCYTE # (test code = LY#) 2.0 K/mm3 1.2-4.0 N MONOCYTE # (test code = MO#) 1.1 K/mm3 0.0-0.6 H EOSINOPHIL # (test code = EO#) 0.4 K/MM3 0.0-0.7 N BASOPHIL # (test code = BA#) 0.1 K/mm3 0.0-0.2 N NUCLEATED RBC # (test code = 0.00 X10 3uL 0.00-0.01 N NRBC#) BASIC METABOLIC [id number] 08:08:00 Test Item Value Reference Range Interpretation Comments SODIUM (test code = NA) 139 mmol/l 134.0-147.0 N POTASSIUM (test code = K) 3.8 mmol/L 3.6-5.2 N CHLORIDE (test code = CL) 106 mmol/l 98.0-107.0 N CARBON DIOXIDE (test code = CO2) 26.9 mmol/l 21.0-33.0 N ANION GAP (test code = GAP) 9.9 0-20 N GLUCOSE (test code = GLU) 93 mg/dl 70.0-110.0 N BLOOD UREA NITROGEN (test code = 15 mg/dl 7.0-18.0 N BUN) CREATININE (test code = CREAT) 0.60 mg/dL 0.60-1.30 N GFR NON BLACK (test code = 145 mL/min 80-90 H GFRNONBLACK) GFR BLACK (test code = GFRBLACK) 175 mL/min 97-109 H CALCIUM (test code = CA) 9.2 mg/dl 8.0-10.5 N VANCOMYCIN [id number] 13:19:00 Test Item Value Reference Range Interpretation Comments VANCOMYCIN TROUGH 12.9 mcg/mL 10-20 N Other dise ase (test code = VANCT) associat ed reference ranges: 10 - 15 mcg/mL Cellulit is, urinary tract infection 15 - 20 mcg/mL Bacterem ia, infective endocarditis, osteomyelitis, meningitis, pneumonia, anna re skin/soft tissu e infection, spin al abscess Specimen comments: PLEASE DRAW VANCO TROUGH PRIOR TO 1400 DOSE, THANK YOUComments to Smoke Room Operator: PLEASE MAKE SURE VANCO IS NOT HANGING, THANK YOU VANCOMYCIN [id number] 04:01:00 Test Item Value Reference Range Interpretation Comments VANCOMYCIN TROUGH 12.8 mcg/mL 10-20 N Other dise ase (test code = VANCT) associat ed reference ranges: 10 - 15 mcg/mL Cellulit is, urinary tract infection 15 - 20 mcg/mL Bacterem ia, infective endocarditis, osteomyelitis, meningitis, pneumonia, anna re skin/soft tissu e infection, spin al abscess [id number] 03:52:00 Test Item Value Reference Range Interpretation Comments HGBA1C% (test code = HGBA1C%) 5.0 %A1C 4.8-6.0 N ESTIMATED AVERAGE GLUCOSE (test code 97 MG/DL = EAG) BASIC METABOLIC [id number] 03:48:00 Test Item Value Reference Range Interpretation Comments SODIUM (test code = NA) 134 mmol/l 134.0-147.0 N POTASSIUM (test code = K) 4.1 mmol/L 3.6-5.2 N CHLORIDE (test code = CL) 102 mmol/l 98.0-107.0 N CARBON DIOXIDE (test code = CO2) 27.4 mmol/l 21.0-33.0 N ANION GAP (test code = GAP) 8.7 0-20 N GLUCOSE (test code = GLU) 86 mg/dl 70.0-110.0 N BLOOD UREA NITROGEN (test code = 10 mg/dl 7.0-18.0 N BUN) CREATININE (test code = CREAT) 0.76 mg/dL 0.60-1.30 N GFR NON BLACK (test code = 110 mL/min 80-90 H GFRNONBLACK) GFR BLACK (test code = GFRBLACK) 133 mL/min 97-109 H CALCIUM (test code = CA) 9.1 mg/dl 8.0-10.5 N CBC W/AUTO [id number] 03:45:00 Test Item Value Reference Range Interpretation Comments WHITE BLOOD CELL (test code = 7.2 K/mm3 4.5-11.0 N WBC) RED BLOOD CELL (test code = 2.78 M/mm3 4.40-5.90 L RBC) HEMOGLOBIN (test code = HGB) 9.8 gm/dL 13.0-17.0 L HEMATOCRIT (test code = HCT) 30.8 % 36.0-48.0 L MEAN CELL VOLUME (test code = 110.8 UM3 80.0-94.0 H MCV) MEAN CELL HGB (test code = MCH) 35.3 UUG 25.5-32.5 H MEAN CELL HGB CONCETRATION 31.8 gm/dL 29.0-35.5 N (test code = MCHC) RED CELL DISTRIBUTION WIDTH 14.0 % 11.5-15.0 N (test code = RDW) RED CELL DISTRIBUTION WIDTH SD 57.8 fL 34.8-50.2 H (test code = RDW-SD) PLATELET COUNT (test code = 239 K/mm3 150-400 PLT) MEAN PLATELET VOLUME (test code 12.0 fl 7.4-10.4 H = MPV) NEUTROPHIL % (test code = NT%) 50.3 % 49.0-76.0 N IMMATURE GRANULOCYTE % (test 0.6 % 0.0-0.4 H code = IG%) LYMPHOCYTE % (test code = LY%) 29.2 % 23.0-38.0 N MONOCYTE % (test code = MO%) 14.9 % 1.0-10.0 H EOSINOPHIL % (test code = EO%) 4.0 % 1.0-5.0 N BASOPHIL % (test code = BA%) 1.0 % 0.0-1.0 N NUCLEATED RBC % (test code = 0.0 % 0.0-0.1 N NRBC%) NEUTROPHIL # (test code = NT#) 3.6 K/mm3 2.4-6.3 N IMMATURE GRANULOCYTE # (test 0.04 x10 3/uL 0.00-0.07 N code = IG#) LYMPHOCYTE # (test code = LY#) 2.1 K/mm3 1.2-4.0 N MONOCYTE # (test code = MO#) 1.1 K/mm3 0.0-0.6 H EOSINOPHIL # (test code = EO#) 0.3 K/MM3 0.0-0.7 N BASOPHIL # (test code = BA#) 0.1 K/mm3 0.0-0.2 N NUCLEATED RBC # (test code = 0.00 X10 3uL 0.00-0.01 N NRBC#) VITAMIN [id number] 20:51:00 Test Item Value Reference Range Interpretation Comments VITAMIN B12 (test code = VITB12) 186 pg/mL 193-986 L FOLIC [id number] 20:51:00 Test Item Value Reference Range Interpretation Comments FOLIC ACID (test code = FOL) 12.6 ng/mL 3.1-17.5 N - XR ANKLE 3 + V [id number] 11:48:00 [facility] : 1955 Sex: M FAX: Amparo Blackwood MD [phone] [place]: St: PRE Name: MAGGIE HOGAN [facility] : 1955 Age/S: 64/M [address] [facility] Unit #: [id number] Loc: E.EXP [place], [place]: [place] [address] Acct: [id number] Dis Date: Status: PRE ER PHONE #: [phone] Exam Date: 01/21/2020 1139 FAX #: [phone] Reason: wound for one year EXAMS: CPT CODE: [id number] XR ANKLE 3 + [place] [address] EXAM: -XR ANKLE 3 + V LT HISTORY: wound for one year Location code:C3 COMPARISON: None available time of interpretation. FINDINGS: AP, oblique, and lateral view of the left ankle is provided. Orthopedic screw within the medial malleolus is present which demonstrates mild lucency about the head of the orthopedic screw up to 1 mm. Ossification by the medial malleolar tip measuring up to 4 mm in size indicative of remote avulsion injuries is seen with moderate tibiotalar osteoarthritis. Mild midfoot degenerative changes seen. Fracture or malalignment. No osteolysis is seen. IMPRESSION: 1. There is subtle lucency about the head of the orthopedic screw in the medial malleolus measuring up to 1 mm in size. Comparison with any prior radiographs for progression of the recommended. Loosening or infection is notexcluded. at 1148 Reported and signed by: Rj Mccann M.D. CC: Amparo Blackwood MD Technologist: MEHRAN MART Trnnmrd Date/Time/By: 01/21/2020 (6915) : By: [email or web address] PAGE 1 Signed Report FAX: Maryan Blackwood [phone] [place]: St: PRE Name: MAGGIE HOGAN [facility] : 1955 Age/S: 64/M [address] [facility] Unit #: [id number] Loc: E.EXP [place], [place]: [place] [address] Acct: [id number] Dis Date: Status: PRE ER PHONE #: [phone] Exam Date: 01/21/2020 1139 FAX #: [phone] Reason: wound for one year EXAMS: CPT CODE: [id number] XR ANKLE 3 + [place] [address] (Continued) Orig Print D/T:S: 01/21/2020 (6472) PAGE 2 Signed ReportCBC W/AUTO [id number] 11:35:00 Test Item Value Reference Range Interpretation Comments WHITE BLOOD CELL (test code = 6.0 K/mm3 4.5-11.0 N WBC) RED BLOOD CELL (test code = 2.45 M/mm3 4.40-5.90 L RBC) HEMOGLOBIN (test code = HGB) 8.8 gm/dL 13.0-17.0 L HEMATOCRIT (test code = HCT) 28.4 % 36.0-48.0 L MEAN CELL VOLUME (test code = 115.9 UM3 80.0-94.0 H MCV) MEAN CELL HGB (test code = MCH) 35.9 UUG 25.5-32.5 H MEAN CELL HGB CONCETRATION 31.0 gm/dL 29.0-35.5 N (test code = MCHC) RED CELL DISTRIBUTION WIDTH 14.3 % 11.5-15.0 N (test code = RDW) RED CELL DISTRIBUTION WIDTH SD 60.3 fL 34.8-50.2 H (test code = RDW-SD) PLATELET COUNT (test code = 349 K/mm3 150-400 N PLT) MEAN PLATELET VOLUME (test code 10.8 fl 7.4-10.4 H = MPV) NEUTROPHIL % (test code = NT%) 50.8 % 49.0-76.0 N IMMATURE GRANULOCYTE % (test 0.3 % 0.0-0.4 N code = IG%) LYMPHOCYTE % (test code = LY%) 33.4 % 23.0-38.0 N MONOCYTE % (test code = MO%) 12.5 % 1.0-10.0 H EOSINOPHIL % (test code = EO%) 2.0 % 1.0-5.0 N BASOPHIL % (test code = BA%) 1.0 % 0.0-1.0 N NUCLEATED RBC % (test code = 0.0 % 0.0-0.1 N NRBC%) NEUTROPHIL # (test code = NT#) 3.0 K/mm3 2.4-6.3 N IMMATURE GRANULOCYTE # (test 0.02 x10 3/uL 0.00-0.07 N code = IG#) LYMPHOCYTE # (test code = LY#) 2.0 K/mm3 1.2-4.0 N MONOCYTE # (test code = MO#) 0.8 K/mm3 0.0-0.6 H EOSINOPHIL # (test code = EO#) 0.1 K/MM3 0.0-0.7 N BASOPHIL # (test code = BA#) 0.1 K/mm3 0.0-0.2 N NUCLEATED RBC # (test code = 0.00 X10 3uL 0.00-0.01 N NRBC#) BASIC METABOLIC [id number] 11:35:00 Test Item Value Reference Range Interpretation Comments SODIUM (test code = NA) 139 mmol/l 134.0-147.0 N POTASSIUM (test code = K) 3.2 mmol/L 3.6-5.2 L CHLORIDE (test code = CL) 106 mmol/l 98.0-107.0 N CARBON DIOXIDE (test code = CO2) 25.3 mmol/l 21.0-33.0 N ANION GAP (test code = GAP) 10.9 0-20 N GLUCOSE (test code = GLU) 125 mg/dl 70.0-110.0 H BLOOD UREA NITROGEN (test code = 7 mg/dl 7.0-18.0 N BUN) CREATININE (test code = CREAT) 0.72 mg/dL 0.60-1.30 N GFR NON BLACK (test code = 117 mL/min 80-90 H GFRNONBLACK) GFR BLACK (test code = GFRBLACK) 142 mL/min 97-109 H CALCIUM (test code = CA) 7.9 mg/dl 8.0-10.5 L Notes Date/Time Note Provider Source 2020-02-09 16:31:00-00:00 [facility] ([facility]) Hospitalist Progress Note REPORT#:[id number] REPORT STATUS: Signed DATE:02/09/20 TIME: 163 PATIENT: MAGGIE HOGAN UNIT #: [id number] ROOM/BED: [place] [id number] : 56 AGE: 64 SEX: M ATTEND: Jaycee Parmar MD ADM AUTHOR: Jaycee Roldan MD * ALL edits or amendments must be made on the [employer] document * Subjective Chief Complaint: Pain controlled Awaiting for assistance with medications for dis charge Review of Systems Constitutional: Denies: generalized weakness. Respiratory: Denies: SOB. Cardiovascular: Denies: chest pain. GI: Denies: nausea, vomiting. Objective General VS/I O: Active Meds + DC'd Last 24 Hrs Doxycycline Monohydrate 100 MG BID PO Ciprofloxacin HCl 500 MG BID PO Quetiapine Fumarate 25 MG Q6H PRN PRN PO Silver Sulfadiazine 1 APPLIC DAILY TOPICAL Cyanocobalamin 1,000 MCG DAILY PO Enoxaparin Sodium 40 MG Q24H SUBQ Vital Signs: Date Time Temp Pulse Resp B/P B/P Pulse O2 O2 F low FiO2 Mean Ox Delivery Rate 02/08 1500 98.2 91 18 134/78 0.0 100 Room air 02/08 1107 97.7 99 16 123/83 96.1 100 Room air 02/08 0629 98.2 94 16 123/79 93.9 99 Room air 02/08 0202 97.9 75 18 132/79 97.1 99 Room air 02/07 2214 98.4 89 17 101/62 74.8 96 Room air 02/07 2214 98.4 89 17 101/62 74.8 96 Room air 02/07 1825 97.9 82 19 105/59 74.1 98 Room air 02/07 1825 97.9 82 19 105/59 74.1 98 Room air 24 hour I O ending at 0700: 02/08 0700 02/07 1900 Intake Total 100 662 Output Total Balance 100 662 Intake, Oral 100 425 Intake, Oral 237 Supplement Number 1 Bowel Movements Number Voids 3 PATIENT WEIGHT: Weight (lb): 137 Weight (oz): 2.04 Weight (kg): 62.200 Physical Exam Head/Eyes: atraumatic, clear cornea, EOMI ENT: moist mucosal membranes, normal dentition, normal ear left, normal ear right Neck: full range of motion, non-tender, normal t hyroid Cardiovascular: normal heart sounds, regular rat e rhythm Respiratory: aerating well, clear to auscultatio n Abdomen: non-tender, normal bowel sounds, soft, no distention Extremities: no clubbing, no cyanosis, no edema Neuro/[employer] DEVELOPER: alert, oriented X 3 Skin: left leg dressed Diagnosis, Assessment Plan Free Text DxA P Notes Free text DxA P notes: Left ankle osteomyelitis with open wound 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 doxycycline and ciprofloxacin f or 2 more weeks per ID Microcytic anemia secondary to vitamin B12 defic iency Continue replacement Acute delirium resolved Seen by psychiatrist As needed Seroquel Hypokalemia replaced as needed Patient is homeless and is from [facility] consulted for medication assistance Discharge orders done -can go [facility] Medications sent to the [facility] --Case man ager will be picking up the medications Patient will be going to the [facility] --as they are full today at 1632 RPT #:[id number] END OF REPORT 2020-02-08 16:06:00-00:[address] [facility] ([facility]) Hospitalist Progress Note REPORT#:[id number] REPORT STATUS: Signed DATE:02/08/20 TIME: 1606 PATIENT: MAGGIE HOGAN UNIT #: [id number] ROOM/BED: [place] [id number] : 56 AGE: 64 SEX: M ATTEND: Jaycee Parmar MD ADM AUTHOR: Jaycee Roldan MD * ALL edits or amendments must be made on the [employer]/computer document * Subjective Chief Complaint: Pain controlled Awaiting for assistance with medications for dis charge Review of Systems Constitutional: Denies: fever, generalized weakness. Respiratory: Denies: productive cough (sputum), SOB. Cardiovascular: Denies: chest pain. GI: Denies: nausea, vomiting. Objective General VS/I O: Active Meds + DC'd Last 24 Hrs Doxycycline Monohydrate 100 MG BID PO Ciprofloxacin HCl 500 MG BID PO Quetiapine Fumarate 25 MG Q6H PRN PRN PO Silver Sulfadiazine 1 APPLIC DAILY TOPICAL Cyanocobalamin 1,000 MCG DAILY PO Enoxaparin Sodium 40 MG Q24H SUBQ Vital Signs: Date Time Temp Pulse Resp B/P B/P Pulse O2 O2 F low FiO2 Mean Ox Delivery Rate 02/07 1447 98.1 86 16 115/82 92.9 97 Room air 02/07 1109 97.7 97 16 112/77 88.8 98 Room air 02/07 0640 98.1 87 16 133/76 94.6 100 Room air 02/07 0231 98.1 82 17 123/79 93.5 99 Room air 02/06 2231 98.1 95 16 127/80 95.4 99 Room air 02/06 1831 98.2 95 14 100/73 82.0 93 Room air 24 hour I O ending at 0700: 02/07 0700 02/06 1900 Intake Total 550 Output Total Balance 550 Intake, Oral 550 Number Voids 3 Patient 62.2 kg Weight Weight Bed scale Measurement Method PATIENT WEIGHT: Weight (lb): 137 Weight (oz): 2.04 Weight (kg): 62.200 Physical Exam Head/Eyes: atraumatic, clear cornea, EOMI ENT: moist mucosal membranes, normal dentition, normal ear left, normal ear right Neck: full range of motion, non-tender, normal t hyroid Cardiovascular: normal heart sounds, regular rat e rhythm Respiratory: aerating well, clear to auscultatio n Abdomen: non-tender, normal bowel sounds, soft, no distention Extremities: no clubbing, no cyanosis, no edema Neuro/NET WEB APPLICATION DEVELOPER: alert, oriented X 3 Skin: left leg dressed Diagnosis, Assessment Plan Free Text DxA P Notes Free text DxA P notes: Left ankle osteomyelitis with open wound 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 doxycycline and ciprofloxacin f or 2 more weeks per ID Microcytic anemia secondary to vitamin B12 defic iency Continue replacement Acute delirium resolved Seen by psychiatrist As needed Seroquel Hypokalemia replaced as needed Patient is homeless and is from [facility] consulted for medication assistance Discharge orders done -[facility] Medications sent to the [facility] --Case man ager will be picking up the medications [facility] at 1608 RPT #:[id number] END OF REPORT 2020-02-08 12:46:00-00:00 [facility] ([facility] Pharmacy Prog.Note-Med Mgmt REPORT#:[id number] REPORT STATUS: Signed DATE:02/08/20 TIME: 1246 PATIENT: MAGGIE HOGAN UNIT #: [id number] ROOM/BED: [place] [id number] : 56 AGE: 64 SEX: M ATTEND: Jaycee Parmar MD ADM AUTHOR: Josh Mathur [facility] * ALL edits or amendments must be made on the [employer] document * Medication Therapy Management Additional comments: RE The patient is currently on enoxaparin withou t a SCr, Hgb, Hct platelet result reported in the last 7 days. Please asses s for the need of the labs. Electronically Signed by Josh Mathur [facility] on 02/07 at 1247 RPT #:[id number] END OF REPORT 2020-02-07 12:51:00-00:00 [facility] ([facility] Hospitalist Progress Note REPORT#:[id number] REPORT STATUS: Signed DATE:02/07/20 TIME: 1251 PATIENT: MAGGIE HOGAN UNIT #: [id number] ROOM/BED: [place] [id number] : 56 AGE: 64 SEX: M ATTEND: Jaycee Parmar MD ADM AUTHOR: Jaycee Roldan MD * ALL edits or amendments must be made on the [employer] document * Subjective Chief Complaint: Pain controlled Review of Systems Constitutional: Denies: fever, generalized weakness. Respiratory: Denies: productive cough (sputum), SOB. Cardiovascular: Denies: chest pain. GI: Denies: nausea, vomiting. Objective General VS/I O: Active Meds + DC'd Last 24 Hrs Doxycycline Monohydrate 100 MG BID PO Ciprofloxacin HCl 500 MG BID PO Doxycycline Monohydrate 100 MG BID PO (DC) Quetiapine Fumarate 25 MG Q6H PRN PRN PO Silver Sulfadiazine 1 APPLIC DAILY TOPICAL Cyanocobalamin 1,000 MCG DAILY PO Enoxaparin Sodium 40 MG Q24H SUBQ Vital Signs: Date Time Temp Pulse Resp B/P B/P Pulse O2 O2 F low FiO2 Mean Ox Delivery Rate 02/06 1052 97.3 99 16 148/89 0.0 100 Room air 02/06 0618 97.9 83 16 145/79 101.3 95 Room air 02/05 2302 98.1 78 16 113/74 87.0 100 Room air 02/05 1838 98.1 74 17 162/93 115.9 100 Room air 02/05 1838 98.1 74 17 162/93 115.9 100 Room air 02/05 1501 97.9 86 16 148/79 0.0 99 Room air 02/05 1501 97.9 86 16 148/79 0.0 99 Room air 24 hour I O ending at 0700: 02/06 0700 02/05 1900 Intake Total 600 755 Output Total Balance 600 755 Intake, Oral 600 518 Intake, Oral 237 Supplement Number Voids 3 2 PATIENT WEIGHT: Weight (lb): 137 Weight (oz): 2.04 Weight (kg): 62.200 Diagnosis, Assessment Plan Free Text DxA P Notes Free text DxA P notes: Left ankle osteomyelitis with open wound 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 doxycycline and ciprofloxacin f or 2 more weeks per ID Microcytic anemia secondary to vitamin B12 defic iency Continue replacement Acute delirium resolved Seen by psychiatrist As needed Seroquel Hypokalemia replaced as needed Patient is homeless and is [facility] done [facility] Discussed with the patient, the nurse and Dr.Sar anders at 1255 RPT #:[id number] END OF REPORT 2020-02-06 23:39:00-00:00 [facility] ([facility]) Infectious Dis. Progress Note REPORT#:[id number] REPORT STATUS: Signed DATE:02/06/20 TIME: 2338 PATIENT: MAGGIE HOGAN UNIT #: [id number] ROOM/BED: [place] [id number] : 56 AGE: 64 SEX: M ATTEND: Jaycee Parmar MD ADM AUTHOR: Vishnu Lopez MD * ALL edits or amendments must be made on the [employer]/computer document * Subjective Chief Complaint: WOUND LEFT ANKLE OM LEFT ANKLE HARDWARE INFECTION Patient reports: No: complaints. Nursing reports: No: complaints. Objective General VS/I O: Last Documented: Result Date Time Pulse Ox 100 02/05 2302 B/P 113/74 02/05 230 B/P Mean 87.0 02/05 2302 O2 Delivery Room air 02/05 2302 Temp 36.7 02/05 230 Pulse 78 02/05 230 Resp 16 02/05 2302 O2 Flow Rate 7 01/30 0744 FiO2 21 01/22 1855 Vital Signs Date Temp Pulse Resp B/P B/P Mean Pulse Ox FiO2 02/05 36.6-36.9 74-95 16-17 113-162/72-94 0.0-1 15.9 98-100 24 hour I O ending at 0700: 02/06 0700 02/05 1900 Intake Total 300 755 Output Total Balance 300 755 Intake, Oral 300 518 Intake, Oral 237 Supplement Number Voids 1 2 PATIENT WEIGHT: Weight (lb): 137 Weight (oz): 2.04 Weight (kg): 62.200 Medications: Active Meds + DC'd Last 24 Hrs Doxycycline Monohydrate 100 MG BID PO Ciprofloxacin HCl 500 MG BID PO (DC) Quetiapine Fumarate 25 MG Q6H PRN PRN PO Silver Sulfadiazine 1 APPLIC DAILY TOPICAL Cyanocobalamin 1,000 MCG DAILY PO Enoxaparin Sodium 40 MG Q24H SUBQ Physical Exam General appearance: awake Head/Eyes: atraumatic, clear cornea, EOMI, saurabh l conjunctiva/sclera, normal eyelids/periorb, normocephalic, PERRL ENT: normal dentition, normal nose, normal phary nx, normal sinus Neck: full range of motion, non-tender, normal thyroid, supple/no meningismus, no bruit/NL carotids, no JVD, no masses or swell ing, no lymphadenopathy Cardiovascular: regular rate rhythm Respiratory: clear to auscultation, no distress Abdomen: non-tender, soft, n o distention, no guarding, no mass/organomegaly, no rebound Extremities: moves all, normal capillary refill, normal sensory, no edema Musculoskeletal: full range of motion, normal in spection Neuro/NET WEB APPLICATION DEVELOPER: alert, oriented X 3 Lymphatics: axilla normal, inguinal normal, neck normal, no lymphadenopathy Psychiatry: normal affect, n ormal judgment/insight, normal mood, not homicidal, not suicidal, no hallucinations Diagnosis, Assessment Plan Free Text A P: INFECTED WOUNF LEFT ANKLE MEDIAL SIDE HARDWARE INFECTION HX FRACTURE LEFT ANKLE WITH ORIF TOBACCO ABUSE ANAEMIA HTN WOUND CX WOUND CARE ORTHO EVAL SUGGESTED FOR REMOVAL OF HARD BAUMAN. DIFFICULT TO TX INFECTION IN THE PRESENCE OF HARDWARE DW PT DW N/STAFF DRUG SCR ANTIBX FOR NOEW -- WILL REASSESS 01/22 AWAIT PODIATRY INPUT ANTIBX RECOMMEND FROM ID SIDE FOR REMOVAL OF HARDWARE - -TO BE DECIDED BY PODIATRY IF TECH FEASIBLE 01/23 AWAIT PODIATRY INPUT WOUND CARE ANTIBX 01/24 PODIATRY RECOMMENDATIONS NOTED ANTIBX WOUND CARE. 01/25 ANTIBX WOUND CARE FURTHER PLAN PER PODIATRY FINAL INPUT 01/26 FROM MY SIDE RECOMMENDATIONS REMAINTHE SAME. 01/29 SURGERY IN AM ANTIBX WILL FOLLOW 01/30 s/p removal of hardware and debridement dc planning on po antibx for 3 weeks DOXY AND CI PRO dw WILL FOLLOW 01/31 WILL FOLLOW DISPOSITION PER ATTENDING/DR WHITTEN AND PODIAT RY 02/01 plan of care same 02/02 disposition as per attending 02/03 OK FOR DC FROM MY SIDE. WILL FOLLOW 02/05 OK TO DC FROM MY SIDE PLAN BEFORE Electronically Signed by Vishnu Lopez MD on 09/19 at 0136 RPT #:[id number] END OF REPORT 2020-02-05 23:34:00-00:[address] [facility] ([facility]) Infectious Dis. Progress Note REPORT#:[id number] REPORT STATUS: Signed DATE:02/05/20 TIME: 2333 PATIENT: MAGGIE HOGAN UNIT #: [id number] ROOM/BED: [place] [id number] : 56 AGE: 64 SEX: M ATTEND: Jaycee Parmar MD ADM AUTHOR: Vishnu Lopez MD * ALL edits or amendments must be made on the [employer]/computer document * Subjective Chief Complaint: WOUND LEFT ANKLE OM LEFT ANKLE HARDWARE INFECTION Patient reports: No: complaints. Nursing reports: No: complaints. Objective General VS/I O: Last Documented: Result Date Time Pulse Ox 97 02/04 2341 B/P 122/75 02/04 2341 B/P Mean 90.7 02/04 2341 O2 Delivery Room air 02/04 2341 Temp 36.7 02/04 2341 Pulse 77 02/04 2341 Resp 18 02/04 2341 O2 Flow Rate 7 01/30 0744 FiO2 21 01/22 1855 Vital Signs Date Temp Pulse Resp B/P B/P Mean Pulse Ox FiO 2 02/04 36.5-36.8 77-93 16-19 110-142/70-89 0.0-1 00.8 95-100 24 hour I O ending at 0700: 02/05 0700 02/04 1900 Intake Total 300 Output Total Balance 300 Intake, Oral 300 Number Voids 2 PATIENT WEIGHT: Weight (lb): 134 Weight (oz): 7.71 Weight (kg): 61.000 Medications: Active Meds + DC'd Last 24 Hrs Doxycycline Monohydrate 100 MG BID PO Ciprofloxacin HCl 500 MG BID PO Quetiapine Fumarate 25 MG Q6H PRN PRN PO Silver Sulfadiazine 1 APPLIC DAILY TOPICAL Cyanocobalamin 1,000 MCG DAILY PO Enoxaparin Sodium 40 MG Q24H SUBQ Physical Exam General appearance: awake Head/Eyes: atraumatic, clear cornea, EOMI, saurabh l conjunctiva/sclera, normal eyelids/periorb, normocephalic, PERRL ENT: normal dentition, normal nose, normal phary nx, normal sinus Neck: full range of motion, non-tender, normal thyroid, supple/no meningismus, no bruit/NL carotids, no JVD, no masses or swell ing, no lymphadenopathy Cardiovascular: regular rate rhythm Respiratory: clear to auscultation, no distress Abdomen: non-tender, soft, n o distention, no guarding, no mass/organomegaly, no rebound Extremities: moves all, normal capillary refill, normal sensory, no edema Musculoskeletal: full range of motion, normal in spection Neuro/NET WEB APPLICATION DEVELOPER: alert, oriented X 3 Lymphatics: axilla normal, inguinal normal, neck normal, no lymphadenopathy Psychiatry: normal affect, n ormal judgment/insight, normal mood, not homicidal, not suicidal, no hallucinations Diagnosis, Assessment Plan Free Text A P: INFECTED WOUNF LEFT ANKLE MEDIAL SIDE HARDWARE INFECTION HX FRACTURE LEFT ANKLE WITH ORIF TOBACCO ABUSE ANAEMIA HTN WOUND CX WOUND CARE ORTHO EVAL SUGGESTED FOR REMOVAL OF HARD BAUMAN. DIFFICULT TO TX INFECTION IN THE PRESENCE OF HARDWARE DW PT DW N/STAFF DRUG SCR ANTIBX FOR NOEW -- WILL REASSESS 01/22 AWAIT PODIATRY INPUT ANTIBX RECOMMEND FROM ID SIDE FOR REMOVAL OF HARDWARE - -TO BE DECIDED BY PODIATRY IF TECH FEASIBLE 01/23 AWAIT PODIATRY INPUT WOUND CARE ANTIBX 01/24 PODIATRY RECOMMENDATIONS NOTED ANTIBX WOUND CARE. 01/25 ANTIBX WOUND CARE FURTHER PLAN PER PODIATRY FINAL INPUT 01/26 FROM MY SIDE RECOMMENDATIONS REMAINTHE SAME. 01/29 SURGERY IN AM ANTIBX WILL FOLLOW 01/30 s/p removal of hardware and debridement dc planning on po antibx for 3 weeks DOXY AND CI PRO dw WILL FOLLOW 01/31 WILL FOLLOW DISPOSITION PER ATTENDING/DR WHITTEN AND PODIAT RY 02/01 plan of care same 02/02 disposition as per attending 02/03 OK FOR DC FROM MY SIDE. WILL FOLLOW Electronically Signed by Vishnu Lopez MD on 08/20 at [facility] RPT #:[id number] END OF REPORT 2020-02-05 13:19:00-00:00 [facility] ([facility]) Hospitalist Progress Note REPORT#:[id number] REPORT STATUS: Signed DATE:02/05/20 TIME: 1319 PATIENT: MAGGIE HOGAN UNIT #: [id number] ROOM/BED: [place] [id number] : 56 AGE: 64 SEX: M ATTEND: Jaycee Parmar MD ADM AUTHOR: Landry Triplett NP * ALL edits or amendments must be made on the el [employer]/computer document * Subjective Chief Complaint: Continue wound care Pain is controlled comfortable no way home or anywhere to go until friday Patient reports: No: complaints. Nursing reports: No: complaints. Review of Systems All systems rev neg: except as marked Objective General VS/I O: Vital Signs: Date Time Temp Pulse Resp B/P B/P Pulse O2 O2 F low FiO2 Mean Ox Delivery Rate 02/04 1051 36.5 87 16 142/89 0.0 100 Room air 02/04 0623 36.6 88 16 134/85 0.0 96 Room air 02/04 0512 36.7 84 19 132/82 98.5 95 Room air 02/04 0245 36.7 79 18 113/70 84.5 98 Room air 02/03 2249 36.5 87 18 122/80 93.8 99 Room air 02/03 1825 36.6 100 19 135/84 100.7 100 Nasal cannula 02/03 1438 36.5 99 16 126/86 99.6 99 Room air 24 hour I O ending at 0700: 02/04 0700 02/03 1900 Intake Total 600 Output Total Balance 600 Intake, Oral 600 Number Voids 3 Patient 61 kg Weight Weight Bed scale Measurement Method PATIENT WEIGHT: Weight (lb): 134 Weight (oz): 7.71 Weight (kg): 61.000 Medications: Active Meds + DC'd Last 24 Hrs Doxycycline Monohydrate 100 MG BID PO Ciprofloxacin HCl 500 MG BID PO Quetiapine Fumarate 25 MG Q6H PRN PRN PO Silver Sulfadiazine 1 APPLIC DAILY TOPICAL Cyanocobalamin 1,000 MCG DAILY PO Enoxaparin Sodium 40 MG Q24H SUBQ Nutrition assessment: The data set between the solid lines has been im ported from the dietitian's assessment. Any exceptions have been noted under Provider comments. BMI Calculated: 17.7 Nutrition related diagnosis: Underweight Nutrition diagnosis details: BMI 19.9 or less Nutrition problem: Underweight Nutrition etiology: Limited access to food Nutrition signs and symptoms: BMI 17.5 Nutrition prescription: HIGH KCAL/HIGH PRO DIET ENSURE BID HONOR FOOD PREFERENCES Dietitian name: Magen Enciso, DIET Assessment completed: 02/04/20 Provider comments on imported dietitian assessme nt: Physical Exam General appearance: alert, awake, oriented Head/Eyes: atraumatic, clear cornea, EOMI ENT: moist mucosal membranes, normal dentition, normal ear left, normal ear right Neck: full range of motion, non-tender, normal t hyroid Cardiovascular: normal heart sounds, regular rat e rhythm Respiratory: aerating well, clear to auscultatio n Abdomen: non-tender, normal bowel sounds, soft, no distention Extremities: no clubbing, no cyanosis, no edema Neuro/NET WEB APPLICATION DEVELOPER: alert, oriented X 3 Skin: left leg dressed Results Results: labs reviewed, vital signs stable Diagnosis, Assessment Plan Problem List/A P: 1. Osteomyelitis of ankle and foot 2. Tobacco dependence Plan discussed with: patient, nurse Free Text DxA P Notes Free text DxA P notes: Osteomyelitis of left ankle with open wound S/p surgery 01/31 ---hardware removed Status post IV antibiotics----changed to p.o. an tibiotics Wet to dry dressing, weightbearing as tolerated Podiatry and ID following Macrocytic anemia secondary to vitamin B12 defic iency on replacement Acute delirium Psychiatry following As needed Seroquel hypokalemia replaced lovenox for DVT prophylaxis 02/01 Continue wound care, wet-to-dry Continue p.o. antibiotics Pain is controlled Patient is homeless----he reports he will have p laced to go tomorrow Discharge in a.m. with prescription for p.o. ant ibiotics, vitamin B12, instructions on wound care and dressing material 02/02 now reporting he has no where to go until friday pain well controlled will need to disuss w case mgmt 02/03 may need hel with discharge says he has somewhere to go on friday continue wound care and abx 02/04 DC home Friday Patient continues to report he has nowhe re to go however he will be able to DC in his wheelchair on Friday [facility]. Electronically Signed by Landry Triplett NP on at 1321 RPT #:[id number] END OF REPORT 2020-02-05 13:19:00-00:00 [facility] ([facility]) Hospitalist Progress Note REPORT#:[id number] REPORT STATUS: Signed DATE:02/05/20 TIME: 131 PATIENT: MAGGIE HOGAN UNIT #: [id number] ROOM/BED: [place] [phone] : 56 AGE: 64 SEX: M ATTEND: Jaycee Parmar MD ADM AUTHOR: Landry Triplett C[facility] * ALL edits or amendments must be made on the [employer]/computer document * Subjective Chief Complaint: Continue wound care Pain is controlled comfortable no way home or anywhere to go until friday Patient reports: No: complaints. Nursing reports: No: complaints. Review of Systems All systems rev neg: except as marked Objective General VS/I O: Vital Signs: Date Time Temp Pulse Resp B/P B/P Pulse O2 O2 F low FiO2 Mean Ox Delivery Rate 02/04 1051 36.5 87 16 142/89 0.0 100 Room air 02/04 0623 36.6 88 16 134/85 0.0 96 Room air 02/04 0512 36.7 84 19 132/82 98.5 95 Room air 02/04 0245 36.7 79 18 113/70 84.5 98 Room air 02/03 2249 36.5 87 18 122/80 93.8 99 Room air 02/03 1825 36.6 100 19 135/84 100.7 100 Nasal cannula 02/03 1438 36.5 99 16 126/86 99.6 99 Room air 24 hour I O ending at 0700: 12 0700 12 1900 Intake Total 600 Output Total Balance 600 Intake, Oral 600 Number Voids 3 Patient 61 kg Weight Weight Bed scale Measurement Method PATIENT WEIGHT: Weight (lb): 134 Weight (oz): 7.71 Weight (kg): 61.000 Medications: Active Meds + DC'd Last 24 Hrs Doxycycline Monohydrate 100 MG BID PO Ciprofloxacin HCl 500 MG BID PO Quetiapine Fumarate 25 MG Q6H PRN PRN PO Silver Sulfadiazine 1 APPLIC DAILY TOPICAL Cyanocobalamin 1,000 MCG DAILY PO Enoxaparin Sodium 40 MG Q24H SUBQ Nutrition assessment: The data set between the solid lines has been im ported from the dietitian's assessment. Any exceptions have been noted under Provider comments. BMI Calculated: 17.7 Nutrition related diagnosis: Underweight Nutrition diagnosis details: BMI 19.9 or less Nutrition problem: Underweight Nutrition etiology: Limited access to food Nutrition signs and symptoms: BMI 17.5 Nutrition prescription: HIGH KCAL/HIGH PRO DIET ENSURE BID HONOR FOOD PREFERENCES Dietitian name: Riversidemurray Enciso, DIET Assessment completed: 02/04/20 Provider comments on imported dietitian assessme nt: Physical Exam General appearance: alert, awake, oriented Head/Eyes: atraumatic, clear cornea, EOMI ENT: moist mucosal membranes, normal dentition, normal ear left, normal ear right Neck: full range of motion, non-tender, normal t hyroid Cardiovascular: normal heart sounds, regular rat e rhythm Respiratory: aerating well, clear to auscultatio n Abdomen: non-tender, normal bowel sounds, soft, no distention Extremities: no clubbing, no cyanosis, no edema Neuro/NET WEB APPLICATION DEVELOPER: alert, oriented X 3 Skin: left leg dressed Results Results: labs reviewed, vital signs stable Diagnosis, Assessment Plan Problem List/A P: 1. Osteomyelitis of ankle and foot 2. Tobacco dependence Plan discussed with: patient, nurse Free Text DxA P Notes Free text DxA P notes: Osteomyelitis of left ankle with open wound S/p surgery 01/31 ---hardware removed Status post IV antibiotics----changed to p.o. an tibiotics Wet to dry dressing, weightbearing as tolerated Podiatry and ID following Macrocytic anemia secondary to vitamin B12 defic iency on replacement Acute delirium Psychiatry following As needed Seroquel hypokalemia replaced lovenox for DVT prophylaxis 02/01 Continue wound care, wet-to-dry Continue p.o. antibiotics Pain is controlled Patient is homeless----he reports he will have p laced to go tomorrow Discharge in a.m. with prescription for p.o. ant ibiotics, vitamin B12, instructions on wound care and dressing material 02/02 now reporting he has no where to go until friday pain well controlled will need to disuss w case mgmt 02/03 may need hel with discharge says he has somewhere to go on friday continue wound care and abx 02/04 DC home Friday Patient continues to report he has nowhe re to go however he will be able to DC in his wheelchair on Friday [facility]. Electronically Signed by Landry Triplett NP on at 1321 at 1442 RPT #:[id number] END OF REPORT 2020-02-04 23:[facility]00[facility]00 [facility] Progress Note REPORT#:[id number] REPORT STATUS: Signed DATE:02/04/20 TIME: 2322 PATIENT: MAGGIE HOGAN UNIT #: [id number] ROOM/BED: [place] [id number] : 56 AGE: 64 SEX: M ATTEND: Jaycee Parmar MD ADM AUTHOR: Vishnu Lopez MD * ALL edits or amendments must be made on the [employer]/computer document * Subjective Chief Complaint: WOUND LEFT ANKLE OM LEFT ANKLE HARDWARE INFECTION Patient reports: No: complaints. Nursing reports: No: complaints. Objective General VS/I O: Last Documented: Result Date Time Pulse Ox 99 02/03 2249 B/P 122/80 02/03 2249 B/P Mean 93.8 02/03 2249 O2 Delivery Room air 02/03 2249 Temp 36.5 02/03 2249 Pulse 87 02/03 2249 Resp 18 02/03 2249 O2 Flow Rate 7 01/30 0744 FiO2 21 01/22 1855 Vital Signs Date Temp Pulse Resp B/P B/P Mean Pulse Ox FiO 2 02/03 36.3-36.7 81-100 16-19 114-137/78-86 89.7 -102.9 97-100 24 hour I O ending at 0700: 12/05 0700 02/03 1900 Intake Total 500 Output Total Balance 500 Intake, Oral 500 Number Voids 2 PATIENT WEIGHT: Weight (lb): 134 Weight (oz): 14.77 Weight (kg): 61.200 Medications: Active Meds + DC'd Last 24 Hrs Doxycycline Monohydrate 100 MG BID PO Ciprofloxacin HCl 500 MG BID PO Quetiapine Fumarate 25 MG Q6H PRN PRN PO Silver Sulfadiazine 1 APPLIC DAILY TOPICAL Cyanocobalamin 1,000 MCG DAILY PO Enoxaparin Sodium 40 MG Q24H SUBQ Physical Exam General appearance: awake Head/Eyes: atraumatic, clear cornea, EOMI, saurabh l conjunctiva/sclera, normal eyelids/periorb, normocephalic, PERRL ENT: normal dentition, normal nose, normal phary nx, normal sinus Neck: full range of motion, non-tender, normal thyroid, supple/no meningismus, no bruit/NL carotids, no JVD, no masses or swell ing, no lymphadenopathy Cardiovascular: regular rate rhythm Respiratory: clear to auscultation, no distress Abdomen: non-tender, soft, n o distention, no guarding, no mass/organomegaly, no rebound Extremities: moves all, normal capillary refill, normal sensory, no edema Musculoskeletal: full range of motion, normal in spection Neuro/NET WEB APPLICATION DEVELOPER: alert, oriented X 3 Lymphatics: axilla normal, inguinal normal, neck normal, no lymphadenopathy Psychiatry: normal affect, n ormal judgment/insight, normal mood, not homicidal, not suicidal, no hallucinations Diagnosis, Assessment Plan Free Text A P: INFECTED WOUNF LEFT ANKLE MEDIAL SIDE HARDWARE INFECTION HX FRACTURE LEFT ANKLE WITH ORIF TOBACCO ABUSE ANAEMIA HTN WOUND CX WOUND CARE ORTHO EVAL SUGGESTED FOR REMOVAL OF HARD BAUMAN. DIFFICULT TO TX INFECTION IN THE PRESENCE OF HARDWARE DW PT DW N/STAFF DRUG SCR ANTIBX FOR NOEW -- WILL REASSESS 01/22 AWAIT PODIATRY INPUT ANTIBX RECOMMEND FROM ID SIDE FOR REMOVAL OF HARDWARE - -TO BE DECIDED BY PODIATRY IF TECH FEASIBLE 01/23 AWAIT PODIATRY INPUT WOUND CARE ANTIBX 01/24 PODIATRY RECOMMENDATIONS NOTED ANTIBX WOUND CARE. 01/25 ANTIBX WOUND CARE FURTHER PLAN PER PODIATRY FINAL INPUT 01/26 FROM MY SIDE RECOMMENDATIONS REMAINTHE SAME. 01/29 SURGERY IN AM ANTIBX WILL FOLLOW 01/30 s/p removal of hardware and debridement dc planning on po antibx for 3 weeks DOXY AND CI PRO Jc WILL FOLLOW 01/31 WILL FOLLOW DISPOSITION PER ATTENDING/DR WHITTEN AND JAM JUÁREZ 02/01 plan of care same 02/02 disposition as per attending 02/03 OK FOR DC FROM MY SIDE. WILL FOLLOW Electronically Signed by Vishnu Lopez MD on 07/20 at 0011 RPT #:[id number] END OF REPORT 2020-02-04 13:57:00-00:00 [facility] ([facility]) Hospitalist Progress Note REPORT#:[id number] REPORT STATUS: Signed DATE:02/04/20 TIME: 135 PATIENT: MAGGIE HOGAN UNIT #: [id number] ROOM/BED: [place] [id number] : 56 AGE: 64 SEX: M ATTEND: Jaycee Parmar MD ADM AUTHOR: Sandi Mei MD * ALL edits or amendments must be made on the [employer]/computer document * Subjective Chief Complaint: Continue wound care Pain is controlled comfortable no way home or anywhere to go until friday Review of Systems All systems rev neg: except as marked Objective General VS/I O: Vital Signs: Date Time Temp Pulse Resp B/P B/P Pulse O2 O2 F low FiO2 Mean Ox Delivery Rate 02/03 1038 36.5 99 16 114/78 89.7 99 Room air 02/03 0622 36.3 96 16 137/86 102.9 97 Room air 02/03 0226 36.7 81 18 121/79 93.0 99 Room air 02/02 2219 36.7 84 19 124/78 93.4 99 Room air 02/02 1817 36.7 76 16 126/78 93.8 100 Room air 02/02 1817 36.7 76 16 126/78 93.8 100 Room air 02/02 1447 37.0 77 18 134/80 98.4 98 Room air 24 hour I O ending at 0700: 02/03 0700 02/02 1900 Intake Total 800 Output Total Balance 800 Intake, Oral 800 Number 1 Bowel Movements Number Voids 2 Patient 61.2 kg Weight Weight Bed scale Measurement Method PATIENT WEIGHT: Weight (lb): 134 Weight (oz): 14.77 Weight (kg): 61.200 Medications: Active Meds + DC'd Last 24 Hrs Doxycycline Monohydrate 100 MG BID PO Ciprofloxacin HCl 500 MG BID PO Quetiapine Fumarate 25 MG Q6H PRN PRN PO Silver Sulfadiazine 1 APPLIC DAILY TOPICAL Cyanocobalamin 1,000 MCG DAILY PO Enoxaparin Sodium 40 MG Q24H SUBQ Physical Exam General appearance: alert, awake, oriented Cardiovascular: normal heart sounds, regular rat e rhythm Respiratory: aerating well, clear to auscultatio n Abdomen: non-tender, normal bowel sounds, soft, no distention Extremities: no clubbing, no cyanosis, no edema Neuro/NET WEB APPLICATION DEVELOPER: alert, oriented X 3 Skin: left leg dressed Diagnosis, Assessment Plan Problem List/A P: 1. Osteomyelitis of ankle and foot 2. Tobacco dependence Free Text DxA P Notes Free text DxA P notes: Osteomyelitis of left ankle with open wound S/p surgery 01/31 ---hardware removed Status post IV antibiotics----changed to p.o. an tibiotics Wet to dry dressing, weightbearing as tolerated Podiatry and ID following Macrocytic anemia secondary to vitamin B12 defic iency on replacement Acute delirium Psychiatry following As needed Seroquel hypokalemia replaced lovenox for DVT prophylaxis 02/01 Continue wound care, wet-to-dry Continue p.o. antibiotics Pain is controlled Patient is homeless----he reports he will have p laced to go tomorrow Discharge in a.m. with prescription for p.o. ant ibiotics, vitamin B12, instructions on wound care and dressing material 02/02 now reporting he has no where to go until friday pain well controlled will need to disuss w case mgmt 02/03 may need hel with discharge says he has somewhere to go on friday continue wound care and abx Electronically Signed by Sandi Mei MD on at 1358 RPT #:[id number] END OF REPORT 2020-02-03 22:31:00-00:[address] [facility] ([facility]) Infectious Dis. Progress Note REPORT#:[id number] REPORT STATUS: Signed DATE:02/03/20 TIME: 2231 PATIENT: MAGGIE HOGAN UNIT #: [id number] ROOM/BED: [place] [id number] : 56 AGE: 64 SEX: M ATTEND: Jaycee Parmar MD ADM AUTHOR: Vishnu Lopez MD * ALL edits or amendments must be made on the [employer]/computer document * Subjective Chief Complaint: WOUND LEFT ANKLE OM LEFT ANKLE HARDWARE INFECTION Patient reports: No: complaints. Nursing reports: No: complaints. Objective General VS/I O: Last Documented: Result Date Time Pulse Ox 99 02/02 2219 B/P 124/78 02/029 B/P Mean 93.4 02/02 2219 O2 Delivery Room air 02/02 2219 Temp 36.7 02/02 2219 Pulse 84 02/02 2219 Resp 19 02/02 2219 O2 Flow Rate 7 01/30 0744 FiO2 21 01/22 1855 Vital Signs Date Temp Pulse Resp B/P B/P Mean Pulse Ox FiO2 02/02 36.7-37.0 76-84 16-19 124-161/78-80 93.4- 107.0 93-100 24 hour I O ending at 0700: 02/02 0700 02/01 1900 Intake Total 320 Output Total Balance 320 Intake, Oral 320 Number 3 Incontinent Voids Number Voids 3 PATIENT WEIGHT: Weight (lb): 132 Weight (oz): 4.44 Weight (kg): 60.000 Medications: Active Meds + DC'd Last 24 Hrs Doxycycline Monohydrate 100 MG BID PO Ciprofloxacin HCl 500 MG BID PO Quetiapine Fumarate 25 MG Q6H PRN PRN PO Silver Sulfadiazine 1 APPLIC DAILY TOPICAL Cyanocobalamin 1,000 MCG DAILY PO Enoxaparin Sodium 40 MG Q24H SUBQ Physical Exam General appearance: awake Head/Eyes: atraumatic, clear cornea, EOMI, saurabh l conjunctiva/sclera, normal eyelids/periorb, normocephalic, PERRL ENT: normal dentition, normal nose, normal phary nx, normal sinus Neck: full range of motion, non-tender, normal thyroid, supple/no meningismus, no bruit/NL carotids, no JVD, no masses or swell ing, no lymphadenopathy Respiratory: clear to auscultation, no distress Abdomen: non-tender, soft, n o distention, no guarding, no mass/organomegaly, no rebound Extremities: moves all, normal capillary refill, normal sensory, no edema Musculoskeletal: full range of motion, normal in spection Neuro/NET WEB APPLICATION DEVELOPER: alert, oriented X 3 Lymphatics: axilla normal, inguinal normal, neck normal, no lymphadenopathy Psychiatry: normal affect, n ormal judgment/insight, normal mood, not homicidal, not suicidal, no hallucinations Diagnosis, Assessment Plan Free Text A P: INFECTED WOUNF LEFT ANKLE MEDIAL SIDE HARDWARE INFECTION HX FRACTURE LEFT ANKLE WITH ORIF TOBACCO ABUSE ANAEMIA HTN WOUND CX WOUND CARE ORTHO EVAL SUGGESTED FOR REMOVAL OF HARD BAUMAN. DIFFICULT TO TX INFECTION IN THE PRESENCE OF HARDWARE DW PT DW N/STAFF DRUG SCR ANTIBX FOR NOEW -- WILL REASSESS 01/22 AWAIT PODIATRY INPUT ANTIBX RECOMMEND FROM ID SIDE FOR REMOVAL OF HARDWARE - -TO BE DECIDED BY PODIATRY IF TECH FEASIBLE 01/23 AWAIT PODIATRY INPUT WOUND CARE ANTIBX 01/24 PODIATRY RECOMMENDATIONS NOTED ANTIBX WOUND CARE. 01/25 ANTIBX WOUND CARE FURTHER PLAN PER PODIATRY FINAL INPUT 01/26 FROM MY SIDE RECOMMENDATIONS REMAINTHE SAME. 01/29 SURGERY IN AM ANTIBX WILL FOLLOW 01/30 s/p removal of hardware and debridement dc planning on po antibx for 3 weeks DOXY AND CI PRO Jc WILL FOLLOW 01/31 WILL FOLLOW DISPOSITION PER ATTENDING/DR WHITTEN AND PODIAT RY 02/01 plan of care same 02/02 disposition as per attending Electronically Signed by Vishnu Lopez MD on 05/20 at 2340 [facility] #:[id number] END OF REPORT 2020-02-03 17:14:00-00:00 [facility] ([facility]) Hospitalist Progress Note REPORT#:[id number] REPORT STATUS: Signed DATE:02/03/20 TIME: 1713 PATIENT: MAGGIE HOGAN UNIT #: [id number] ROOM/BED: [place] [id number] : 56 AGE: 64 SEX: M ATTEND: Jaycee Mendoza MD ADM AUTHOR: Sandi Mei MD * ALL edits or amendments must be made on the [employer]/computer document * Subjective Chief Complaint: Continue wound care Pain is controlled Review of Systems All systems rev neg: except as marked Objective General VS/I O: Vital Signs: Date Time Temp Pulse Resp B/P B/P Pulse O2 O2 F low FiO2 Mean Ox Delivery Rate 02/029 36.7 84 19 124/78 93.4 99 Room air 02/02 1817 36.7 76 16 126/78 93.8 100 Room air 02/02 1817 36.7 76 16 126/78 93.8 100 Room air 02/02 1447 37.0 77 18 134/80 98.4 98 Room air 02/02 0552 78 18 161/80 107.0 100 Room air 02/02 0244 36.9 81 18 130/80 96.8 93 Room air 24 hour I O ending at 0700: 02/02 0700 02/01 1900 Intake Total 320 Output Total Balance 320 Intake, Oral 320 Number 3 Incontinent Voids Number Voids 3 PATIENT WEIGHT: Weight (lb): 132 Weight (oz): 4.44 Weight (kg): 60.000 Medications: Active Meds + DC'd Last 24 Hrs Doxycycline Monohydrate 100 MG BID PO Ciprofloxacin HCl 500 MG BID PO Quetiapine Fumarate 25 MG Q6H PRN PRN PO Silver Sulfadiazine 1 APPLIC DAILY TOPICAL Cyanocobalamin 1,000 MCG DAILY PO Enoxaparin Sodium 40 MG Q24H SUBQ Physical Exam General appearance: alert, awake, oriented Cardiovascular: normal heart sounds, regular rat e rhythm Respiratory: aerating well, clear to auscultatio n Abdomen: non-tender, normal bowel sounds, soft, no distention Extremities: no clubbing, no cyanosis, no edema Neuro/NET WEB APPLICATION DEVELOPER: alert, oriented X 3 Skin: left leg dressed Diagnosis, Assessment Plan Problem List/A P: 1. Osteomyelitis of ankle and foot 2. Tobacco dependence Free Text DxA P Notes Free text DxA P notes: Osteomyelitis of left ankle with open wound S/p surgery 01/31 ---hardware removed Status post IV antibiotics----changed to p.o. an tibiotics Wet to dry dressing, weightbearing as tolerated Podiatry and ID following Macrocytic anemia secondary to vitamin B12 defic iency on replacement Acute delirium Psychiatry following As needed Seroquel hypokalemia replaced lovenox for DVT prophylaxis 02/01 Continue wound care, wet-to-dry Continue p.o. antibiotics Pain is controlled Patient is homeless----he reports he will have p laced to go tomorrow Discharge in a.m. with prescription for p.o. ant ibiotics, vitamin B12, instructions on wound care and dressing material 02/02 now reporting he has no where to go until friday pain well controlled will need to disuss w case mgmt Electronically Signed by Sandi Mei MD on at 2227 RPT #:[id number] END OF REPORT 2020-02-03 06:31:00-00:00 [facility] ([facility] Podiatry Progress Note REPORT#:[id number] REPORT STATUS: Signed DATE:02/03/20 TIME: 630 PATIENT: MAGGIE HOGAN UNIT #: [id number] ROOM/BED: [place] [id number] : 56 AGE: 64 SEX: M ATTEND: Jaycee Parmar MD ADM AUTHOR: Kaed Ortega DPM * ALL edits or amendments must be made on the [employer]/computer document * General Post-op: post surgery rounds Subjective Chief complaint: ulceration left Patient reports: no complaints Objective General Medications: Active Meds + DC'd Last 24 Hrs Doxycycline Monohydrate 100 MG BID PO Ciprofloxacin HCl 500 MG BID PO Quetiapine Fumarate 25 MG Q6H PRN PRN PO Silver Sulfadiazine 1 APPLIC DAILY TOPICAL Cyanocobalamin 1,000 MCG DAILY PO Enoxaparin Sodium 40 MG Q24H SUBQ Physical Exam General appearance: alert, awake Wound/incision: Location: left medial foot full thickness ulceration with fibrotic base with no active purulence noted. mild periwound erythema no edema noted. post surgical site intact with sutures in place Extremities: Left pedal pulses, Left abnormal capillary refil l, Left decreased range of motion, Right pedal pulses, Right abnormal capil chriss refill, Right decreased range of motion LE vascular pulse assess: Palpable R posterior tibialis, Palpable L anaesthesiologist ior tibialis, Palpable R dorsalis pedis, Palpable L dorsalis pedis Capillary refill: Capillary refill (in seconds): > 5 seconds Right foot, > 5 seconds Left foot Foot: abnormal ROM, neurological deficit, vascul ar deficit Musculoskeletal: Musculoskeletal: decreased ROM Neuro/NET WEB APPLICATION DEVELOPER: alert Skin: abnormal color, atrophic shiny skin Diagnosis, Assessment Plan Free Text A P: Impression: 1. Left ankle full thickness ulceration possible OM s/p HWR 2. Tobacco dependence Plan: post hardware removal seen and evaluated DVT prophylaxis per medicine Abx per ID Continue local wound care. Wound cultures negative WBAT to foot Pain control Will follow Discharge planning Covering for Dr. Castaneda/Juvenal at 2333 RPT #:[id number] END OF REPORT 2020-02-02 23:21:00-00:00 [facility] ([facility]) Infectious Dis. Progress Note REPORT#:[id number] REPORT STATUS: Signed DATE:02/02/20 TIME: 2320 PATIENT: MAGGIE HOGAN UNIT #: [id number] ROOM/BED: [place] [id number] : 56 AGE: 64 SEX: M ATTEND: Jaycee Parmar MD ADM AUTHOR: Vishnu Lopez MD * ALL edits or amendments must be made on the [employer]/computer document * Subjective Chief Complaint: WOUND LEFT ANKLE OM LEFT ANKLE HARDWARE INFECTION Patient reports: No: complaints. Nursing reports: No: complaints. Objective General VS/I O: Last Documented: Result Date Time Pulse Ox 99 02/02 2224 B/P 139/85 02/02 2224 B/P Mean 102.7 02/02 2224 O2 Delivery Room air 02/02 2224 Temp 36.8 02/02 2224 Pulse 80 02/02 2224 Resp 18 02/02 2224 O2 Flow Rate 7 01/30 0744 FiO2 21 01/22 1855 Vital Signs Date Temp Pulse Resp B/P B/P Mean Pulse Ox FiO2 02/01 36.6-36.9 80-104 17-19 108-139/71-85 83.5 -102.7 98-99 24 hour I O ending at 0700: 02/02 0700 02/01 1900 Intake Total 200 Output Total Balance 200 Intake, Oral 200 Number 3 Incontinent Voids Number Voids 1 Patient Weight Weight (lb): 132 Weight (oz): 4.44 Weight (kg): 60.000 Medications: Active Meds + DC'd Last 24 Hrs Doxycycline Monohydrate 100 MG BID PO Ciprofloxacin HCl 500 MG BID PO Metronidazole 500 MG Q8HR PO (DC) Quetiapine Fumarate 25 MG Q6H PRN PRN PO Silver Sulfadiazine 1 APPLIC DAILY TOPICAL Cyanocobalamin 1,000 MCG DAILY PO Enoxaparin Sodium 40 MG Q24H SUBQ Physical Exam General appearance: awake Head/Eyes: atraumatic, clear cornea, EOMI, saurabh l conjunctiva/sclera, normal eyelids/periorb, normocephalic, PERRL ENT: normal dentition, normal nose, normal phary nx, normal sinus Neck: full range of motion, non-tender, normal thyroid, supple/no meningismus, no bruit/NL carotids, no JVD, no masses or swell ing, no lymphadenopathy Respiratory: clear to auscultation, no distress Abdomen: non-tender, soft, n o distention, no guarding, no mass/organomegaly, no rebound Extremities: moves all, normal capillary refill, normal sensory, no edema Musculoskeletal: full range of motion, normal in spection Neuro/NET WEB APPLICATION DEVELOPER: alert, oriented X 3 Lymphatics: axilla normal, inguinal normal, neck normal, no lymphadenopathy Psychiatry: normal affect, n ormal judgment/insight, normal mood, not homicidal, not suicidal, no hallucinations Diagnosis, Assessment Plan Free Text A P: INFECTED WOUNF LEFT ANKLE MEDIAL SIDE HARDWARE INFECTION HX FRACTURE LEFT ANKLE WITH ORIF TOBACCO ABUSE ANAEMIA HTN WOUND CX WOUND CARE ORTHO EVAL SUGGESTED FOR REMOVAL OF HARD BAUMAN. DIFFICULT TO TX INFECTION IN THE PRESENCE OF HARDWARE DW PT DW N/STAFF DRUG SCR ANTIBX FOR NOEW -- WILL REASSESS 01/22 AWAIT PODIATRY INPUT ANTIBX RECOMMEND FROM ID SIDE FOR REMOVAL OF HARDWARE - -TO BE DECIDED BY PODIATRY IF TECH FEASIBLE 01/23 AWAIT PODIATRY INPUT WOUND CARE ANTIBX 01/24 PODIATRY RECOMMENDATIONS NOTED ANTIBX WOUND CARE. 01/25 ANTIBX WOUND CARE FURTHER PLAN PER PODIATRY FINAL INPUT 01/26 FROM MY SIDE RECOMMENDATIONS REMAINTHE SAME. 01/29 SURGERY IN AM ANTIBX WILL FOLLOW 01/30 s/p removal of hardware and debridement dc planning on po antibx for 3 weeks DOXY AND CI PRO Jc WILL FOLLOW 01/31 WILL FOLLOW DISPOSITION PER ATTENDING/DR WHITTEN AND PODALINA RY 02/01 plan of care same Electronically Signed by Vishnu Lopez MD on 05/20 at [facility] RPT #:[id number] END OF REPORT 2020-02-02 11:31:00-00:00 [facility] ([facility]) Hospitalist Progress Note REPORT#:[id number] REPORT STATUS: Signed DATE:02/02/20 TIME: 1131 PATIENT: MAGGIE HOGAN UNIT #: [id number] ROOM/BED: [place] [id number] : 56 AGE: 64 SEX: M ATTEND: Jaycee Parmar MD ADM AUTHOR: Swathi Whitten MD * ALL edits or amendments must be made on the [employer] document * Subjective Chief Complaint: Continue wound care Pain is controlled He reports he has no place to go and drain today Review of Systems Constitutional: Denies: fever. Respiratory: Denies: SOB, wheezing. Cardiovascular: Denies: chest pain, edema. GI: Denies: nausea, vomiting. Objective General VS/I O: Vital Signs: Date Time Temp Pulse Resp B/P B/P Pulse O2 O2 F low FiO2 Mean Ox Delivery Rate 02/01 1023 36.9 85 18 123/78 93.2 98 Room air 02/01 0556 36.8 82 18 117/76 89.5 99 Room air 02/01 0216 36.6 87 19 132/81 98.3 99 Room air 02/01 0216 36.6 87 19 132/81 98.3 99 Room air 01/31 2213 36.7 90 17 100/66 77.0 98 Room air 01/31 1821 36.8 88 18 105/65 78.7 95 Room air 01/31 1821 36.8 88 18 105/65 78.7 95 Room air 01/31 1821 36.8 88 18 105/65 78.7 95 Room air 01/31 1445 36.5 92 17 105/73 83.6 99 Room air 24 hour I O ending at 0700: 01/31 1900 02/01 0700 Intake Total 420 Output Total Balance 420 Intake, Oral 420 Number Voids 3 Patient Weight Weight (lb): 132 Weight (oz): 4.44 Weight (kg): 60.000 Physical Exam General appearance: alert, awake, oriented Cardiovascular: normal heart sounds, regular rat e rhythm Respiratory: aerating well, clear to auscultatio n Abdomen: non-tender, normal bowel sounds, soft, no distention Extremities: no clubbing, no cyanosis, no edema Neuro/NET WEB APPLICATION DEVELOPER: alert, oriented X 3 Skin: left leg dressed Diagnosis, Assessment Plan Problem List/A P: 1. Osteomyelitis of ankle and foot 2. Tobacco dependence Free Text DxA P Notes Free text DxA P notes: Osteomyelitis of left ankle with open wound S/p surgery 01/31 ---hardware removed Status post IV antibiotics----changed to p.o. an tibiotics Wet to dry dressing, weightbearing as tolerated Podiatry and ID following Macrocytic anemia secondary to vitamin B12 defic iency on replacement Acute delirium Psychiatry following As needed Seroquel hypokalemia replaced lovenox for DVT prophylaxis 02/01 Continue wound care, wet-to-dry Continue p.o. antibiotics Pain is controlled Patient is homeless----he reports he will have p laced to go tomorrow Discharge in a.m. with prescription for p.o. ant ibiotics, vitamin B12, instructions on wound care and dressing material Electronically Signed by Swathi Whitten MD on at 1134 RPT #:[id number] END OF REPORT 2020-02-02 09:43:00-00:00 [facility] ([facility]) Podiatry Progress Note REPORT#:[id number] REPORT STATUS: Signed DATE:02/02/20 TIME: 942 PATIENT: MAGGIE HOGAN UNIT #: [id number] ROOM/BED: [place] [id number] : 56 AGE: 64 SEX: M ATTEND: Jaycee Parmar MD ADM AUTHOR: Willian Alicea DPM * ALL edits or amendments must be made on the [employer] document * General Post-op: post surgery rounds Subjective Chief complaint: ulceration left Objective Physical Exam Wound/incision: Location: left medial foot full thickness ulceration with fibrotic base with no active purulence noted. mild periwound erythema no edema noted. post surgical site intact with sutures in place Extremities: Left pedal pulses, Left abnormal capillary refil l, Left decreased range of motion, Right pedal pulses, Right abnormal capil chriss refill, Right decreased range of motion LE vascular pulse assess: Palpable R posterior tibialis, Palpable L anaesthesiologist ior tibialis, Palpable R dorsalis pedis, Palpable L dorsalis pedis Capillary refill: Capillary refill (in seconds): > 5 seconds Right foot, > 5 seconds Left foot Foot: abnormal ROM, neurological deficit, vascul ar deficit Musculoskeletal: Musculoskeletal: decreased ROM Neuro/NET WEB APPLICATION DEVELOPER: alert Skin: abnormal color, atrophic shiny skin Diagnosis, Assessment Plan Free Text A P: Impression: 1. Left ankle full thickness ulceration possible OM s/p HWR 2. Tobacco dependence Plan: post hardware removal seen and evaluated DVT prophylaxis per medicine Abx per ID Continue local wound care. Wound cultures negative WBAT to foot Pain control Will follow dr alicea Electronically Signed by Willian Alicea DPM on at 0945 [facility] #:[id number] END OF REPORT 2020-02-01 23:45:00-00:00 [facility] ([facility]) Podiatry Progress Note REPORT#:[id number] REPORT STATUS: Signed DATE:02/01/20 TIME: 2344 PATIENT: MAGGIE HOGAN UNIT #: [id number] ROOM/BED: [place] [id number] : 56 AGE: 64 SEX: M ATTEND: Jaycee Parmar MD ADM AUTHOR: Kade Ortega DPM * ALL edits or amendments must be made on the [employer] document * General Post-op: post surgery rounds Subjective Chief complaint: ulceration left Patient reports: no complain ts, no fever, no nausea, no shortness of breath, no vomiting Objective General Medications: Active Meds + DC'd Last 24 Hrs Ciprofloxacin HCl 500 MG BID PO Metronidazole 500 MG Q8HR PO Piperacillin Sod/Tazobactam Sod 3.375 GM Q8H IV (DC) Sodium Chloride 100 ML Vancomycin HCl 1,000 MG Q12H IV (DC) Sodium Chloride 250 ML Quetiapine Fumarate 25 MG Q6H PRN PRN PO Silver Sulfadiazine 1 APPLIC DAILY TOPICAL Cyanocobalamin 1,000 MCG DAILY PO Enoxaparin Sodium 40 MG Q24H SUBQ Physical Exam General appearance: alert, awake Wound/incision: Location: left medial foot full thickness ulceration with fibrotic base with no active purulence noted. mild periwound erythema no edema noted. post surgical site intact with sutures in place Extremities: Left pedal pulses, Left abnormal capillary refil l, Left decreased range of motion, Right pedal pulses, Right abnormal capil chriss refill, Right decreased range of motion LE vascular pulse assess: Palpable R posterior tibialis, Palpable L anaesthesiologist ior tibialis, Palpable R dorsalis pedis, Palpable L dorsalis pedis Capillary refill: Capillary refill (in seconds): > 5 seconds Right foot, > 5 seconds Left foot Foot: abnormal ROM, neurological deficit, vascul ar deficit Musculoskeletal: Musculoskeletal: decreased ROM Neuro/NET WEB APPLICATION DEVELOPER: alert Skin: abnormal color, atrophic shiny skin Results Findings/Data: Laboratory Tests: 02/01 152 Chemistry Sodium (134.0 - 147.0 mmol/l) 138 Potassium (3.6 - 5.2 mmol/L) 4.0 Chloride (98.0 - 107.0 mmol/l) 103 Carbon Dioxide (21.0 - 33.0 mmol/l) 28.9 Anion Gap (0 - 20) 10.1 BUN (7.0 - 18.0 mg/dl) 15 Creatinine (0.60 - 1.30 mg/dL) 0.77 Est GFR ( Amer) (97 - 109 mL/min) 131 H Est GFR (Non-Af Amer) (80 - 90 mL/min) 108 H Glucose (70.0 - 110.0 mg/dl) 105 Calcium (8.0 - 10.5 mg/dl) 9.7 Diagnosis, Assessment Plan Free Text A P: Impression: 1. Left ankle full thickness ulceration possible OM s/p HWR 2. Tobacco dependence Plan: seen and evaluated DVT prophylaxis per medicine Abx per ID x-ray noted Continue local wound care. Wound cultures negative WBAT to foot Pain control Will follow Covering for Dr. Castaneda/Juvenal at 2348 RPT #:[id number] END OF REPORT 2020-02-01 22:47:00-00:[address] [facility] ([facility]) Infectious Dis. Progress Note REPORT#:[id number] REPORT STATUS: Signed DATE:02/01/20 TIME: 2246 PATIENT: MAGGIE HOGAN UNIT #: [id number] ROOM/BED: [place] [id number] : 56 AGE: 64 SEX: M ATTEND: Jaycee Parmar MD ADM AUTHOR: Vishnu Lopez MD * ALL edits or amendments must be made on the [employer]/computer document * Subjective Chief Complaint: WOUND LEFT ANKLE OM LEFT ANKLE HARDWARE INFECTION Patient reports: No: complaints. Nursing reports: No: complaints. Objective General VS/I O: Last Documented: Result Date Time Pulse Ox 98 01/31 2213 B/P 100/66 01/31 2213 B/P Mean 77.0 01/31 2213 O2 Delivery Room air 01/31 2213 Temp 36.7 01/31 2213 Pulse 90 01/31 2213 Resp 17 01/31 2213 O2 Flow Rate 7 01/30 0744 FiO2 21 01/22 1855 Vital Signs Date Temp Pulse Resp B/P B/P Mean Pulse Ox FiO 2 01/31 36.4-36.8 78-92 - 100-145/65-80 77.0- 102.1 95-100 24 hour I O ending at 0700: 01/31 0700 01/30 1900 Intake Total 770.00 Output Total 1475 100 Balance -705.00 -100 Intake, IV 450.00 Intake, Oral 320 Output, Urine 1475 100 Patient Weight Weight (lb): 132 Weight (oz): 4.44 Weight (kg): 60.000 Medications: Active Meds + DC'd Last 24 Hrs Ciprofloxacin HCl 500 MG BID PO Metronidazole 500 MG Q8HR PO Piperacillin Sod/Tazobactam Sod 3.375 GM Q8H IV (DC) Sodium Chloride 100 ML Vancomycin HCl 1,000 MG Q12H IV (DC) Sodium Chloride 250 ML Quetiapine Fumarate 25 MG Q6H PRN PRN PO Silver Sulfadiazine 1 APPLIC DAILY TOPICAL Cyanocobalamin 1,000 MCG DAILY PO Enoxaparin Sodium 40 MG Q24H SUBQ Physical Exam General appearance: awake Head/Eyes: atraumatic, clear cornea, EOMI, saurabh l conjunctiva/sclera, normal eyelids/periorb, normocephalic, PERRL ENT: normal dentition, normal nose, normal phary nx, normal sinus Neck: full range of motion, non-tender, normal thyroid, supple/no meningismus, no bruit/NL carotids, no JVD, no masses or swell ing, no lymphadenopathy Respiratory: clear to auscultation, no distress Abdomen: non-tender, soft, n o distention, no guarding, no mass/organomegaly, no rebound Extremities: moves all, normal capillary refill, normal sensory, no edema Musculoskeletal: full range of motion, normal in spection Neuro/NET WEB APPLICATION DEVELOPER: alert, oriented X 3 Lymphatics: axilla normal, inguinal normal, neck normal, no lymphadenopathy Psychiatry: normal affect, n ormal judgment/insight, normal mood, not homicidal, not suicidal, no hallucinations Results Findings/Data: Laboratory Tests 02/01 152 Chemistry Sodium (134.0 - 147.0 mmol/l) 138 Potassium (3.6 - 5.2 mmol/L) 4.0 Chloride (98.0 - 107.0 mmol/l) 103 Carbon Dioxide (21.0 - 33.0 mmol/l) 28.9 Anion Gap (0 - 20) 10.1 BUN (7.0 - 18.0 mg/dl) 15 Creatinine (0.60 - 1.30 mg/dL) 0.77 Est GFR ( Amer) (97 - 109 mL/min) 131 H Est GFR (Non-Af Amer) (80 - 90 mL/min) 108 H Glucose (70.0 - 110.0 mg/dl) 105 Calcium (8.0 - 10.5 mg/dl) 9.7 Diagnosis, Assessment Plan Free Text A P: INFECTED WOUNF LEFT ANKLE MEDIAL SIDE HARDWARE INFECTION HX FRACTURE LEFT ANKLE WITH ORIF TOBACCO ABUSE ANAEMIA HTN WOUND CX WOUND CARE ORTHO EVAL SUGGESTED FOR REMOVAL OF HARD BAUMAN. DIFFICULT TO TX INFECTION IN THE PRESENCE OF HARDWARE DW PT DW N/STAFF DRUG SCR ANTIBX FOR NOEW -- WILL REASSESS 01/22 AWAIT PODIATRY INPUT ANTIBX RECOMMEND FROM ID SIDE FOR REMOVAL OF HARDWARE - -TO BE DECIDED BY PODIATRY IF TECH FEASIBLE 01/23 AWAIT PODIATRY INPUT WOUND CARE ANTIBX 01/24 PODIATRY RECOMMENDATIONS NOTED ANTIBX WOUND CARE. 01/25 ANTIBX WOUND CARE FURTHER PLAN PER PODIATRY FINAL INPUT 01/26 FROM MY SIDE RECOMMENDATIONS REMAINTHE SAME. 01/29 SURGERY IN AM ANTIBX WILL FOLLOW 01/30 s/p removal of hardware and debridement dc planning on po antibx for 3 weeks DOXY AND CI PRO dw WILL FOLLOW 01/31 WILL FOLLOW DISPOSITION PER ATTENDING/DR WHITTEN AND JAM RY Electronically Signed by Vishnu Lopez MD on 03/22 at 2350 RPT #:[id number] END OF REPORT 2020-02-01 13:35:00-00:00 [facility] ([facility]) Hospitalist Progress Note REPORT#:[id number] REPORT STATUS: Signed DATE:02/01/20 TIME: 1335 PATIENT: MAGGIE HOGAN UNIT #: [id number] ROOM/BED: [place] [id number] : 56 AGE: 64 SEX: M ATTEND: Jaycee Parmar MD ADM AUTHOR: Swathi Whitten MD * ALL edits or amendments must be made on the [employer]/computer document * Subjective Chief Complaint: Pulled out his IV again Now he reports that he is homeless Objective General VS/I O: Vital Signs: Date Time Temp Pulse Resp B/P B/P Pulse O2 O2 F low FiO2 Mean Ox Delivery Rate 01/31 1055 36.4 90 17 107/72 83.8 100 Room air 01/31 0601 36.6 78 17 145/80 102.1 100 Room ai r 01/31 0229 36.7 82 17 133/74 93.6 100 Room air 01/30 2241 37.0 78 16 159/91 113.7 98 Room air 01/30 1918 36.6 79 16 128/75 92.8 100 Room air 01/30 1447 36.6 69 16 144/79 100.9 100 Room air 24 hour I O ending at 0700: 01/30 1900 01/31 0700 Intake Total 770.00 Output Total 100 1475 Balance -100 -705.00 Intake, IV 450.00 Intake, Oral 320 Output, Urine 100 1475 Patient Weight Weight (lb): 132 Weight (oz): 4.44 Weight (kg): 60.000 Physical Exam Cardiovascular: normal heart sounds, regular rat e rhythm Respiratory: aerating well, clear to auscultatio n Abdomen: non-tender, normal bowel sounds, soft, no distention Extremities: no clubbing, no cyanosis, no edema Neuro/NET WEB APPLICATION DEVELOPER: alert, oriented X 3 Skin: left leg dressed Results Findings/Data: Laboratory Tests 01/30 01/31 1347 0152 Chemistry Sodium (134.0 - 147.0 mmol/l) 140 138 Potassium (3.6 - 5.2 mmol/L) 4.2 4.0 Chloride (98.0 - 107.0 mmol/l) 103 103 Carbon Dioxide (21.0 - 33.0 mmol/l) 30.4 28.9 Anion Gap (0 - 20) 10.8 10.1 BUN (7.0 - 18.0 mg/dl) 16 15 Creatinine (0.60 - 1.30 mg/dL) 0.63 0.77 Est GFR ( Amer) (97 - 109 mL/min) 165 H 131 H Est GFR (Non-Af Amer) (80 - 90 mL/min) 137 H 10 8 H Glucose (70.0 - 110.0 mg/dl) 113 H 105 Calcium (8.0 - 10.5 mg/dl) 9.0 9.7 Laboratory Tests 01/30 1347 Hematology WBC (4.5 - 11.0 K/mm3) 8.0 RBC (4.40 - 5.90 M/mm3) 3.04 L Hgb (13.0 - 17.0 gm/dL) 10.6 L Hct (36.0 - 48.0 %) 33.7 L MCV (80.0 - 94.0 UM3) 110.9 H MCH (25.5 - 32.5 UUG) 34.9 H MCHC (29.0 - 35.5 gm/dL) 31.5 RDW (11.5 - 15.0 %) 14.4 Plt Count (150 - 400 K/mm3) 335 MPV (7.4 - 10.4 fl) 10.8 H Neut % (Auto) (49.0 - 76.0 %) 51.2 Lymph % (Auto) (23.0 - 38.0 %) 26.0 Washburn % (Auto) (1.0 - 10.0 %) 15.1 H Eos % (Auto) (1.0 - 5.0 %) 5.5 H Baso % (Auto) (0.0 - 1.0 %) 1.3 H Neut # (Auto) (2.4 - 6.3 K/mm3) 4.1 Lymph # (Auto) (1.2 - 4.0 K/mm3) 2.1 [place]burn # (Auto) (0.0 - 0.6 K/mm3) 1.2 H Eos # (Auto) (0.0 - 0.7 K/MM3) 0.4 Baso # (Auto) (0.0 - 0.2 K/mm3) 0.1 Absolute Nucleated RBC (0.00 - 0.01 X10 3uL) 0. 00 Immature Gran % (0.0 - 0.4 %) 0.9 H Nucleated RBC % (0.0 - 0.1 %) 0.0 Immature Gran # (0.00 - 0.07 x10 3/uL) 0.07 Diagnosis, Assessment Plan Problem List/A P: 1. Osteomyelitis of ankle and foot 2. Tobacco dependence Free Text DxA P Notes Free text DxA P notes: Osteomyelitis of left ankle with open wound S/p surgery today ---hardware removed today On IV antibiotics Podiatry and ID following Macrocytic anemia secondary to vitamin B12 defic iency on replacement Acute delirium Psychiatry following As needed Seroquel hypokalemia replaced lovenox for DVT prophylaxis 01/31 Pulled out IV again Change antibiotics to p.o. Cultures remain negative Discussed with Dr. Lopez ID Plan for discharge in am will greg Alicea regarding wound care Patient is homeless----correction information emerson s been given to patient twice Electronically Signed by Swathi Whitten MD on at 1339 RPT #:[id number] END OF REPORT 2020-01-31 23:08:00-00:[address] [facility] [facility] ([facility]) Infectious Dis. Progress Note REPORT#:[id number] REPORT STATUS: Signed DATE:01/31/20 TIME: 2307 PATIENT: MAGGIE HOGAN UNIT #: [id number] ROOM/BED: [place] [id number] : 56 AGE: 64 SEX: M ATTEND: Jaycee Parmar MD ADM AUTHOR: Vishnu Lopez MD * ALL edits or amendments must be made on the [employer] document * Subjective Chief Complaint: WOUND LEFT ANKLE OM LEFT ANKLE HARDWARE INFECTION Patient reports: No: complaints. Nursing reports: No: complaints. Objective General VS/I O: Last Documented: Result Date Time Pulse Ox 98 01/30 2241 B/P 159/91 01/30 2241 B/P Mean 113.7 01/301 O2 Delivery Room air 01/30 2241 Temp 37.0 01/301 Pulse 78 01/30 2241 Resp 16 01/30 2241 O2 Flow Rate 7 01/30 0744 FiO2 21 01/22 1855 Vital Signs Date Temp Pulse Resp B/P B/P Mean Pulse Ox FiO 2 01/30 36.6-37.0 68-79 16-18 115-162/68-92 83.6- 113.7 98-100 24 hour I O ending at 0700: 12 0700 01/30 1900 Intake Total 550.00 Output Total 250 100 Balance 300.00 -100 Intake, IV 350.00 Intake, Oral 200 Output, Urine 250 100 Patient Weight Weight (lb): 132 Weight (oz): 4.44 Weight (kg): 60.000 Medications: Active Meds + DC'd Last 24 Hrs Fentanyl Citrate 50 MCG PACU Q5MIN PRN PRN IV (D C) Hydromorphone HCl 1 MG PACU Q5MIN PRN PRN IV (DC ) Lactated Ringer's 1,000 ML .[id number] IV (DC) Meperidine HCl 12.5 MG PACU ASDIR PRN PRN IV (DC ) Ondansetron HCl 4 MG PACU ONCE PRN PRN IV (DC) Lidocaine HCl 0 .STK-MED ONE .ROUTE (DC) Propofol 20 ML .STK-MED ONE IV (DC) Piperacillin Sod/Tazobactam Sod 3.375 GM Q8H IV Sodium Chloride 100 ML Vancomycin HCl 1,000 MG Q12H IV Sodium Chloride 250 ML Quetiapine Fumarate 25 MG Q6H PRN PRN PO Silver Sulfadiazine 1 APPLIC DAILY TOPICAL Cyanocobalamin 1,000 MCG DAILY PO Enoxaparin Sodium 40 MG Q24H SUBQ Acetaminophen 650 MG Q4H PRN PRN PO (DC) Ondansetron HCl 4 MG Q6H PRN PRN IV (DC) Physical Exam General appearance: awake Head/Eyes: atraumatic, clear cornea, EOMI, saurabh l conjunctiva/sclera, normal eyelids/periorb, normocephalic, PERRL ENT: normal dentition, normal nose, normal phary nx, normal sinus Neck: full range of motion, non-tender, normal thyroid, supple/no meningismus, no bruit/NL carotids, no JVD, no masses or swell ing, no lymphadenopathy Respiratory: clear to auscultation, no distress Abdomen: non-tender, soft, n o distention, no guarding, no mass/organomegaly, no rebound Extremities: moves all, normal capillary refill, normal sensory, no edema Musculoskeletal: full range of motion, normal in spection Neuro/NET WEB APPLICATION DEVELOPER: alert, oriented X 3 Lymphatics: axilla normal, inguinal normal, neck normal, no lymphadenopathy Psychiatry: normal affect, n ormal judgment/insight, normal mood, not homicidal, not suicidal, no hallucinations Results Findings/Data: Laboratory Tests 01/30 1347 Chemistry Sodium (134.0 - 147.0 mmol/l) 140 Potassium (3.6 - 5.2 mmol/L) 4.2 Chloride (98.0 - 107.0 mmol/l) 103 Carbon Dioxide (21.0 - 33.0 mmol/l) 30.4 Anion Gap (0 - 20) 10.8 BUN (7.0 - 18.0 mg/dl) 16 Creatinine (0.60 - 1.30 mg/dL) 0.63 Est GFR ( Amer) (97 - 109 mL/min) 165 H Est GFR (Non-Af Amer) (80 - 90 mL/min) 137 H Glucose (70.0 - 110.0 mg/dl) 113 H Calcium (8.0 - 10.5 mg/dl) 9.0 Laboratory Tests 01/30 1347 Hematology WBC (4.5 - 11.0 K/mm3) 8.0 RBC (4.40 - 5.90 M/mm3) 3.04 L Hgb (13.0 - 17.0 gm/dL) 10.6 L Hct (36.0 - 48.0 %) 33.7 L MCV (80.0 - 94.0 UM3) 110.9 H MCH (25.5 - 32.5 UUG) 34.9 H MCHC (29.0 - 35.5 gm/dL) 31.5 RDW (11.5 - 15.0 %) 14.4 Plt Count (150 - 400 K/mm3) 335 MPV (7.4 - 10.4 fl) 10.8 H Neut % (Auto) (49.0 - 76.0 %) 51.2 Lymph % (Auto) (23.0 - 38.0 %) 26.0 Washburn % (Auto) (1.0 - 10.0 %) 15.1 H Eos % (Auto) (1.0 - 5.0 %) 5.5 H Baso % (Auto) (0.0 - 1.0 %) 1.3 H Neut # (Auto) (2.4 - 6.3 K/mm3) 4.1 Lymph # (Auto) (1.2 - 4.0 K/mm3) 2.1 [place] # (Auto) (0.0 - 0.6 K/mm3) 1.2 H Eos # (Auto) (0.0 - 0.7 K/MM3) 0.4 Baso # (Auto) (0.0 - 0.2 K/mm3) 0.1 Absolute Nucleated RBC (0.00 - 0.01 X10 3uL) 0. 00 Immature Gran % (0.0 - 0.4 %) 0.9 H Nucleated RBC % (0.0 - 0.1 %) 0.0 Immature Gran # (0.00 - 0.07 x10 3/uL) 0.07 Diagnosis, Assessment Plan Free Text A P: INFECTED WOUNF LEFT ANKLE MEDIAL SIDE HARDWARE INFECTION HX FRACTURE LEFT ANKLE WITH ORIF TOBACCO ABUSE ANAEMIA HTN WOUND CX WOUND CARE ORTHO EVAL SUGGESTED FOR REMOVAL OF HARD BAUMAN. DIFFICULT TO TX INFECTION IN THE PRESENCE OF HARDWARE DW PT DW N/STAFF DRUG SCR ANTIBX FOR NOEW -- WILL REASSESS 01/22 AWAIT PODIATRY INPUT ANTIBX RECOMMEND FROM ID SIDE FOR REMOVAL OF HARDWARE - -TO BE DECIDED BY PODIATRY IF TECH FEASIBLE 01/23 AWAIT PODIATRY INPUT WOUND CARE ANTIBX 01/24 PODIATRY RECOMMENDATIONS NOTED ANTIBX WOUND CARE. 01/25 ANTIBX WOUND CARE FURTHER PLAN PER PODIATRY FINAL INPUT 01/26 FROM MY SIDE RECOMMENDATIONS REMAINTHE SAME. 01/29 SURGERY IN AM ANTIBX WILL FOLLOW 01/30 s/p removal of hardware and debridement dc planning on po antibx for 3 weeks DOXY AND CI PRO Jc WILL FOLLOW Electronically Signed by Vishnu Lopez MD on 03/22 at 0028 RPT #:[id number] END OF REPORT 2020-01-31 13:12:00-00:[address] [facility] ([facility]) Hospitalist Progress Note REPORT#:[id number] REPORT STATUS: Signed DATE:01/31/20 TIME: 1312 PATIENT: MAGGIE HOGAN UNIT #: [id number] ROOM/BED: [place] [id number] : 56 AGE: 64 SEX: M ATTEND: Jaycee Parmar MD ADM AUTHOR: Swathi Whitten MD * ALL edits or amendments must be made on the [employer]/computer document * Subjective Chief Complaint: Back from surgery Review of Systems Constitutional: Denies: fever. Respiratory: Denies: SOB, wheezing. Cardiovascular: Denies: chest pain, edema. GI: Denies: nausea, vomiting. Objective General VS/I O: Vital Signs: Date Time Temp Pulse Resp B/P B/P Pulse O2 O2 F low FiO2 Mean Ox Delivery Rate 01/30 1110 36.6 79 17 115/68 83.6 99 Room air 01/30 0802 68 18 162/92 100 Room air 01/30 0800 Room air 01/30 0744 Simple 7 mask 01/30 0740 36.6 75 18 146/87 100 Simple 7 mask 01/30 0735 77 18 159/92 100 Simple 7 mask 01/30 0623 77 18 140/83 100 Room air 01/29 2345 36.5 77 17 143/85 104.1 99 01/29 1859 92 18 113/74 87.0 96 Room air 01/29 1859 92 18 113/74 87.0 96 Room air 01/29 1654 36.9 75 18 125/76 92.3 98 Room air 01/29 1654 36.9 75 18 125/76 92.3 98 Room air 24 hour I O ending at 0700: 01/29 1900 01/30 0700 Intake Total 953 Output Total 350 Balance 603 Intake, Oral 476 Intake, Oral 477 Supplement Number Voids 2 Output, Urine 350 Patient Weight Weight (lb): 132 Weight (oz): 4.44 Weight (kg): 60.000 Physical Exam General appearance: alert, awake, oriented Cardiovascular: normal heart sounds, regular rat e rhythm Respiratory: aerating well, clear to auscultatio n Abdomen: non-tender, normal bowel sounds, soft, no distention Extremities: no clubbing, no cyanosis, no edema Neuro/NET WEB APPLICATION DEVELOPER: alert, oriented X 3 Skin: left leg dressed Diagnosis, Assessment Plan Problem List/A P: 1. Osteomyelitis of ankle and foot 2. Tobacco dependence Free Text DxA P Notes Free text DxA P notes: Osteomyelitis of left ankle with open wound S/p surgery today ---hardware removed today On IV antibiotics Podiatry and ID following Macrocytic anemia secondary to vitamin B12 defic iency on replacement Acute delirium Psychiatry following As needed Seroquel hypokalemia replaced lovenox for DVT prophylaxis Electronically Signed by Swathi Whitten MD on at 1315 [facility] #:[id number] END OF REPORT 2020-01-31 07:29:00-00:00 [id number] [facility] and [facility] [address] [place], [place] [address] PATIENT NAME: MAGGIE HOGAN ADMIT DATE: 01/20 ACCOUNT NO: [id number] DISCHARGE DATE: ROOM NO: E[facility] REPORT TYPE: OPERATIVE REPORT DATE OF : AGE: 64 SEX: M ADMITTING PHYSICIAN:Jaycee Roldan MD ATTENDING PHYSICIAN:Jaycee Roldan MD OPERATION DATE: 01/31/[address]: [facility]. PREOPERATIVE DIAGNOSIS: Possible infected hardwa re, left medial ankle. POSTOPERATIVE DIAGNOSIS: Possible infected hardw are, left medial ankle. PROCEDURE: Removal of hardware, deep, left media l malleoli ankle. SURGEON: Willian Alicea DPM AGRICULTURAL ECONOMIST: None. ANESTHESIA: General. HEMOSTASIS: 250 mmHg, left calf. ESTIMATED BLOOD LOSS: Minimal. PROCEDURE IN DETAIL: Under mild sedation, the pa tient was brought to the operating room and placed on the operating table in supine position. Calf tourniquet was placed on the patient's l eft calf following general anesthesia, the left foot was scrubbed, prepped, and draped in the usual aseptic manner. At this time, the foot was elevated, exsang uinated, tourniquet was placed at this time. Attention was directed to the medial aspect of the left ankle under C-arm where a screw was pinpointed at this time. Incis ion was made over this area. Bone rongeur was utilized to remove any excessiv e bone buildup over the screw head. Following the bone was removed to where the screw could be removed under C-arm, the screw was removed at this devorah e. The area was irrigated with copious amounts of sterile normal saline. A 3-0 Prolene in a simple interrupted technique was utilized to reapproximate the skin edges. The wound was noted to be stable at this time just distal, screw was sent for culture. At this time, a dry sterile dressing consisting of Betad ine-soaked 4 x 4s, dry 4 x 4s, Kerlix, and Jr were applied to the left ankle w ound and incision area. Tourniquet was released and a prompt hyperemic response was not ed to all digits of the left foot. The patient tolerated the procedure and an esthesia well. He was transferred to the recovery room with vital sign s stable. Following a period of postop monitoring, the pat ient was discharged back to floor on original orders. Al l complications and ramifications of this procedure were addressed in detail with the patien t. No assurance or guarantees given or implied. All the patient's questions were answer ed. PATIENT NAME: MAGGIE HOGAN [id number] Dictated By: Willian Alicea DPM WT: OP:CARLOS ALBERTO/ANTWAN. Conf#: [id number]/DID#: [id number] Authenticated by Willian Alicea DPM On 0 08:29:49 AM at 0830 PATIENT NAME: MAGGIE HOGAN [id number] 8815-11-29 23:26[facility]00-00:00 [facility] Progress Note REPORT#:[id number] REPORT STATUS: Signed DATE:01/30/20 TIME: 2325 PATIENT: MAGGIE HOGAN UNIT #: [id number] ROOM/BED: [place] [id number] : 56 AGE: 64 SEX: M ATTEND: Jaycee Parmar MD ADM AUTHOR: Vishnu Lopez MD * ALL edits or amendments must be made on the [employer]/computer document * Subjective Chief Complaint: WOUND LEFT ANKLE OM LEFT ANKLE HARDWARE INFECTION Patient reports: No: complaints. Nursing reports: No: complaints. Objective General VS/I O: Last Documented: Result Date Time Pulse Ox 99 01/29 234 B/P 143/85 01/29 2345 B/P Mean 104.1 01/29 2345 Temp 36.5 01/29 234 Pulse 77 01/29 2345 Resp 17 01/29 2345 O2 Delivery Room air 01/29 1859 FiO2 21 01/22 1855 O2 Flow Rate 0 01/22 0753 Vital Signs Date Temp Pulse Resp B/P B/P Mean Pulse Ox FiO2 01/29 36.5-36.9 75-92 16-18 112-143/72-85 85.4- 104.1 96-100 24 hour I O ending at 0700: 01/30 0700 01/29 1900 Intake Total 953 Output Total 350 Balance 603 Intake, Oral 476 Intake, Oral 477 Supplement Output, Urine 350 Patient Weight Weight (lb): 132 Weight (oz): 4.44 Weight (kg): 60.000 Medications: Active Meds + DC'd Last 24 Hrs Piperacillin Sod/Tazobactam Sod 3.375 GM Q8H IV Sodium Chloride 100 ML Vancomycin HCl 1,000 MG Q12H IV Sodium Chloride 250 ML Quetiapine Fumarate 25 MG Q6H PRN PRN PO Silver Sulfadiazine 1 APPLIC DAILY TOPICAL Cyanocobalamin 1,000 MCG DAILY PO Enoxaparin Sodium 40 MG Q24H SUBQ Acetaminophen 650 MG Q4H PRN PRN PO Ondansetron HCl 4 MG Q6H PRN PRN IV Physical Exam General appearance: awake Head/Eyes: atraumatic, clear cornea, EOMI, saurabh l conjunctiva/sclera, normal eyelids/periorb, normocephalic, PERRL ENT: normal dentition, normal nose, normal phary nx, normal sinus Neck: full range of motion, non-tender, normal thyroid, supple/no meningismus, no bruit/NL carotids, no JVD, no masses or swell ing, no lymphadenopathy Respiratory: clear to auscultation, no distress Abdomen: non-tender, soft, n o distention, no guarding, no mass/organomegaly, no rebound Extremities: moves all, normal capillary refill, normal sensory, no edema Musculoskeletal: full range of motion, normal in spection Neuro/NET WEB APPLICATION DEVELOPER: alert, oriented X 3 Lymphatics: axilla normal, inguinal normal, neck normal, no lymphadenopathy Psychiatry: normal affect, n ormal judgment/insight, normal mood, not homicidal, not suicidal, no hallucinations Diagnosis, Assessment Plan Free Text A P: INFECTED WOUNF LEFT ANKLE MEDIAL SIDE HARDWARE INFECTION HX FRACTURE LEFT ANKLE WITH ORIF TOBACCO ABUSE ANAEMIA HTN WOUND CX WOUND CARE ORTHO EVAL SUGGESTED FOR REMOVAL OF HARD BAUMAN. DIFFICULT TO TX INFECTION IN THE PRESENCE OF HARDWARE DW PT DW N/STAFF DRUG SCR ANTIBX FOR NOEW -- WILL REASSESS 01/22 AWAIT PODIATRY INPUT ANTIBX RECOMMEND FROM ID SIDE FOR REMOVAL OF HARDWARE - -TO BE DECIDED BY PODIATRY IF TECH FEASIBLE 01/23 AWAIT PODIATRY INPUT WOUND CARE ANTIBX 01/24 PODIATRY RECOMMENDATIONS NOTED ANTIBX WOUND CARE. 01/25 ANTIBX WOUND CARE FURTHER PLAN PER PODIATRY FINAL INPUT 01/26 FROM MY SIDE RECOMMENDATIONS REMAINTHE SAME. 01/29 SURGERY IN AM ANTIBX WILL FOLLOW Electronically Signed by Vishnu Lopez MD on 01/03 at 0008 RPT #:[id number] END OF REPORT 2020-01-30 11:55:00-00:00 [facility] Progress Note REPORT#:[id number] REPORT STATUS: Signed DATE:01/30/20 TIME: 1155 PATIENT: MAGGIE HOGAN UNIT #: [id number] ROOM/BED: [place] [id number] : 56 AGE: 64 SEX: M ATTEND: Jaycee Parmar MD ADM AUTHOR: Oswaldo Hernandez NP * ALL edits or amendments must be made on the [employer]/computer document * Subjective Chief Complaint: Follow-up left ankle wound on IV abx Slightly confused denies any new complaints at t his time. Sitter at the bedside. Objective General VS/I O: Vital Signs: Date Time Temp Pulse Resp B/P B/P Pulse O2 O2 F low FiO2 Mean Ox Delivery Rate 01/29 1051 98.1 85 16 112/72 85.4 98 Room air 01/29 0637 98.1 79 16 136/81 99.8 100 Room air 01/29 0238 98.1 81 17 131/81 97.5 98 Room air 01/28 2358 98.2 79 18 124/78 93.0 98 Room air 01/28 1759 98.2 92 17 105/71 82.0 98 Room air 01/28 1537 97.9 85 17 121/68 85.6 98 24 hour I O ending at 0700: 01/29 0700 01/28 1900 Intake Total 890.00 Output Total 900 Balance -10.00 Intake, IV 450.00 Intake, Oral 440 Output, Urine 900 Patient Weight Weight (lb): 132 Weight (oz): 4.44 Weight (kg): 60.000 Physical Exam General appearance: awake Cardiovascular: normal heart sounds, regular rat e rhythm Respiratory: aerating well, clear to auscultatio n Abdomen: non-tender, normal bowel sounds, soft, no distention Extremities: no clubbing, no cyanosis, no edema Neuro/NET WEB APPLICATION DEVELOPER: alert Skin: left leg open wound Diagnosis, Assessment Plan Free Text DxA P Notes Free text DxA P notes: Osteomyelitis of left ankle with open wound hardware in place Continue iv antibiotics--- IV vancomycin and Zos yn Patient is afebrile xray noted consulted podiatry--- seen by Dr. Ortega---- patient will need surgery ID following Continue wound care Macrocytic anemia Vitamin B12 deficiency --- B12--- low at 186, on replacement psychiatry illness continue home meds hypokalemia replaced lovenox for DVT prophylaxis 01/26 continue iv antibx dw podiatry regarding timing of surgery psych consult appreciated 01/27 acute delerium---psych fu, seroquel started new iv to be placed surgery friday am 01/28- sugery on monday 01/29 Acute delirium improved Surgery on Friday Labs in a.m. at 1156 RPT #:[id number] END OF REPORT 2020-01-30 11:55:00-00:00 [facility] ([facility]) Hospitalist Progress Note REPORT#:[id number] REPORT STATUS: Signed DATE:01/30/20 TIME: 1155 PATIENT: MAGGIE HOGAN UNIT #: [id number] ROOM/BED: [place] [id number] : 56 AGE: 64 SEX: M ATTEND: Jaycee Parmar MD ADM AUTHOR: Oswaldo Hernandez NP * ALL edits or amendments must be made on the [employer]/computer document * Subjective Chief Complaint: Follow-up left ankle wound on IV abx Slightly confused denies any new complaints at t his time. Sitter at the bedside. Objective General VS/I O: Vital Signs: Date Time Temp Pulse Resp B/P B/P Pulse O2 O2 F low FiO2 Mean Ox Delivery Rate 01/29 1051 98.1 85 16 112/72 85.4 98 Room air 01/29 0637 98.1 79 16 136/81 99.8 100 Room air 01/29 0238 98.1 81 17 131/81 97.5 98 Room air 01/28 2358 98.2 79 18 124/78 93.0 98 Room air 01/28 1759 98.2 92 17 105/71 82.0 98 Room air 01/28 1537 97.9 85 17 121/68 85.6 98 24 hour I O ending at 0700: 01/29 0700 01/28 1900 Intake Total 890.00 Output Total 900 Balance -10.00 Intake, IV 450.00 Intake, Oral 440 Output, Urine 900 Patient Weight Weight (lb): 132 Weight (oz): 4.44 Weight (kg): 60.000 Physical Exam General appearance: awake Cardiovascular: normal heart sounds, regular rat e rhythm Respiratory: aerating well, clear to auscultatio n Abdomen: non-tender, normal bowel sounds, soft, no distention Extremities: no clubbing, no cyanosis, no edema Neuro/NET WEB APPLICATION DEVELOPER: alert Skin: left leg open wound Diagnosis, Assessment Plan Free Text DxA P Notes Free text DxA P notes: Osteomyelitis of left ankle with open wound hardware in place Continue iv antibiotics--- IV vancomycin and Zos yn Patient is afebrile xray noted consulted podiatry--- seen by Dr. Ortega---- patient will need surgery ID following Continue wound care Macrocytic anemia Vitamin B12 deficiency --- B12--- low at 186, on replacement psychiatry illness continue home meds hypokalemia replaced lovenox for DVT prophylaxis 01/26 continue iv antibx dw podiatry regarding timing of surgery psych consult appreciated 01/27 acute delerium---psych fu, seroquel started new iv to be placed surgery 01/28- sugery on monday 01/29 Acute delirium improved Surgery on Friday Labs in a.m. at 1156 at 1049 RPT #:[id number] END OF REPORT 2020-01-29 23:16:00-00:[address] [facility] ([facility]) Infectious Dis. Progress Note REPORT#:[id number] REPORT STATUS: Signed DATE:01/29/20 TIME: 2315 PATIENT: MAGGIE HOGAN UNIT #: [id number] ROOM/BED: [place] [address] : 56 AGE: 64 SEX: M ATTEND: Jaycee Parmar MD ADM AUTHOR: Vishnu Lopez MD * ALL edits or amendments must be made on the el [employer]/computer document * Subjective Chief Complaint: WOUND LEFT ANKLE OM LEFT ANKLE HARDWARE INFECTION Patient reports: No: complaints. Nursing reports: No: complaints. Objective General VS/I O: Last Documented: Result Date Time Pulse Ox 98 01/28 2358 B/P 124/78 01/28 2358 B/P Mean 93.0 01/28 2358 O2 Delivery Room air 01/28 2358 Temp 36.8 01/28 2358 Pulse 79 01/28 2358 Resp 18 01/28 2358 FiO2 21 01/22 1855 O2 Flow Rate 0 01/22 0753 Vital Signs Date Temp Pulse Resp B/P B/P Mean Pulse Ox FiO2 01/28 36.5-36.8 70-92 17-18 105-141/68-89 82.0- 106.4 97-100 24 hour I O ending at 0700: 01/29 0700 01/28 1900 Intake Total 550.00 Output Total 200 Balance 350.00 Intake, IV 350.00 Intake, Oral 200 Output, Urine 200 Patient Weight Weight (lb): 132 Weight (oz): 4.44 Weight (kg): 60.000 Medications: Active Meds + DC'd Last 24 Hrs Piperacillin Sod/Tazobactam Sod 3.375 GM Q8H IV Sodium Chloride 100 ML Vancomycin HCl 1,000 MG Q12H IV Sodium Chloride 250 ML Quetiapine Fumarate 25 MG Q6H PRN PRN PO Silver Sulfadiazine 1 APPLIC DAILY TOPICAL Cyanocobalamin 1,000 MCG DAILY PO Enoxaparin Sodium 40 MG Q24H SUBQ Acetaminophen 650 MG Q4H PRN PRN PO Ondansetron HCl 4 MG Q6H PRN PRN IV Physical Exam General appearance: awake Head/Eyes: atraumatic, clear cornea, EOMI, saurabh l conjunctiva/sclera, normal eyelids/periorb, normocephalic, PERRL ENT: normal dentition, normal nose, normal phary nx, normal sinus Neck: full range of motion, non-tender, normal thyroid, supple/no meningismus, no bruit/NL carotids, no JVD, no masses or swell ing, no lymphadenopathy Respiratory: clear to auscultation, no distress Abdomen: non-tender, soft, n o distention, no guarding, no mass/organomegaly, no rebound Extremities: moves all, normal capillary refill, normal sensory, no edema Musculoskeletal: full range of motion, normal in spection Neuro/NET WEB APPLICATION DEVELOPER: alert, oriented X 3 Lymphatics: axilla normal, inguinal normal, neck normal, no lymphadenopathy Psychiatry: normal affect, n ormal judgment/insight, normal mood, not homicidal, not suicidal, no hallucinations Diagnosis, Assessment Plan Free Text A P: INFECTED WOUNF LEFT ANKLE MEDIAL SIDE HARDWARE INFECTION HX FRACTURE LEFT ANKLE WITH ORIF TOBACCO ABUSE ANAEMIA HTN WOUND CX WOUND CARE ORTHO EVAL SUGGESTED FOR REMOVAL OF HARD BAUMAN. DIFFICULT TO TX INFECTION IN THE PRESENCE OF HARDWARE DW PT DW N/STAFF DRUG SCR ANTIBX FOR NOEW -- WILL REASSESS 01/22 AWAIT PODIATRY INPUT ANTIBX RECOMMEND FROM ID SIDE FOR REMOVAL OF HARDWARE - -TO BE DECIDED BY PODIATRY IF TECH FEASIBLE 01/23 AWAIT PODIATRY INPUT WOUND CARE ANTIBX 01/24 PODIATRY RECOMMENDATIONS NOTED ANTIBX WOUND CARE. 01/25 ANTIBX WOUND CARE FURTHER PLAN PER PODIATRY FINAL INPUT 01/26 FROM MY SIDE RECOMMENDATIONS REMAINTHE SAME. 01/28 for surgery friday antibx wound care Electronically Signed by Vishnu Lopez MD on 01/02 11/20 at 0136 RPT #:[id number] END OF REPORT 2020-01-29 23:16:00-00:00 [facility] ([facility]) Infectious Dis. Progress Note REPORT#:[id number] REPORT STATUS: Signed DATE:01/29/20 TIME: 2315 PATIENT: MAGGIE HOGAN UNIT #: [id number] ROOM/BED: [place] [id number] : 56 AGE: 64 SEX: M ATTEND: Jaycee Parmar MD ADM AUTHOR: Vishnu Lopez MD * ALL edits or amendments must be made on the [employer]/computer document * Subjective Chief Complaint: WOUND LEFT ANKLE OM LEFT ANKLE HARDWARE INFECTION Objective Physical Exam Head/Eyes: atraumatic, clear cornea, EOMI, saurabh l conjunctiva/sclera, normal eyelids/periorb, normocephalic, PERRL ENT: normal dentition, normal nose, normal phary nx, normal sinus Neck: full range of motion, non-tender, normal thyroid, supple/no meningismus, no bruit/NL carotids, no JVD, no masses or swell ing, no lymphadenopathy Respiratory: clear to auscultation, no distress Abdomen: non-tender, soft, n o distention, no guarding, no mass/organomegaly, no rebound Extremities: moves all, normal capillary refill, normal sensory, no edema Musculoskeletal: full range of motion, normal in spection Neuro/NET WEB APPLICATION DEVELOPER: alert, oriented X 3 Lymphatics: axilla normal, inguinal normal, neck normal, no lymphadenopathy Psychiatry: normal affect, n ormal judgment/insight, normal mood, not homicidal, not suicidal, no hallucinations Diagnosis, Assessment Plan Free Text A P: INFECTED WOUNF LEFT ANKLE MEDIAL SIDE HARDWARE INFECTION HX FRACTURE LEFT ANKLE WITH ORIF TOBACCO ABUSE ANAEMIA HTN WOUND CX WOUND CARE ORTHO EVAL SUGGESTED FOR REMOVAL OF HARD BAUMAN. DIFFICULT TO TX INFECTION IN THE PRESENCE OF HARDWARE DW PT DW N/STAFF DRUG SCR ANTIBX FOR NOEW -- WILL REASSESS 01/22 AWAIT PODIATRY INPUT ANTIBX RECOMMEND FROM ID SIDE FOR REMOVAL OF HARDWARE - -TO BE DECIDED BY PODIATRY IF TECH FEASIBLE 01/23 AWAIT PODIATRY INPUT WOUND CARE ANTIBX 01/24 PODIATRY RECOMMENDATIONS NOTED ANTIBX WOUND CARE. 01/25 ANTIBX WOUND CARE FURTHER PLAN PER PODIATRY FINAL INPUT 01/26 FROM MY SIDE RECOMMENDATIONS REMAINTHE SAME. Electronically Signed by Vishnu Lopez MD on 01/02 11/20 at 0424 RPT #:[id number] END OF REPORT 2020-01-29 11:40:00-00:00 [facility] ([facility]) Hospitalist Progress Note REPORT#:[id number] REPORT STATUS: Signed DATE:01/29/20 TIME: 1140 PATIENT: MAGGIE HOGAN UNIT #: [id number] ROOM/BED: [place] [address] : 56 AGE: 64 SEX: M ATTEND: Jaycee Parmar MD ADM AUTHOR: Oswaldo Hernandez NP * ALL edits or amendments must be made on the [employer]/computer document * Subjective Chief Complaint: Follow-up left ankle wound on IV abx Objective General VS/I O: Vital Signs: Date Time Temp Pulse Resp B/P B/P Pulse O2 O2 F low FiO2 Mean Ox Delivery Rate 01/28 1114 97.7 70 17 141/89 106.4 99 01/28 0614 97.9 74 17 123/71 88.1 97 01/28 0402 98.2 76 17 132/82 98.7 100 Room air 01/27 2251 98.2 70 17 155/87 109.5 99 Room air 01/27 1828 98.6 77 17 110/68 81.9 95 Room air 01/27 1440 98.1 75 17 122/64 83.1 99 Room air 24 hour I O ending at 0700: 01/28 0700 01/27 1900 Intake Total 690.00 237 Output Total 600 600 Balance 90.00 -363 Intake, IV 450.00 Intake, Oral 240 Intake, Oral 237 Supplement Output, Urine 600 600 Patient Weight Weight (lb): 132 Weight (oz): 4.44 Weight (kg): 60.000 Physical Exam General appearance: awake Cardiovascular: normal heart sounds, regular rat e rhythm Respiratory: aerating well, clear to auscultatio n Abdomen: non-tender, normal bowel sounds, soft, no distention Extremities: no clubbing, no cyanosis, no edema Neuro/NET WEB APPLICATION DEVELOPER: alert, oriented X 3 Skin: left leg open wound Diagnosis, Assessment Plan Free Text DxA P Notes Free text DxA P notes: Osteomyelitis of left ankle with open wound hardware in place Continue iv antibiotics--- IV vancomycin and Zos yn Patient is afebrile xray noted consulted podiatry--- seen by Dr. Ortega---- patient will need surgery ID following Continue wound care Macrocytic anemia Vitamin B12 deficiency --- B12--- low at 186, on replacement psychiatry illness continue home meds hypokalemia replaced lovenox for DVT prophylaxis 01/26 continue iv antibx dw podiatry regarding timing of surgery psych consult appreciated 01/27 acute delerium---psych leonidas, anayee started new iv to be placed surgery 01/28- karleeery on friday at 1141 RPT #:[id number] END OF REPORT 2020-01-29 11:40:00-00:00 [facility] Progress Note REPORT#:[id number] REPORT STATUS: Signed DATE:01/29/20 TIME: 1140 PATIENT: MAGGIE HOGAN UNIT #: [id number] ROOM/BED: [place] [id number] : 56 AGE: 64 SEX: M ATTEND: Jaycee Parmar MD ADM AUTHOR: Oswaldo Hernandez NP * ALL edits or amendments must be made on the [employer]/computer document * Subjective Chief Complaint: Follow-up left ankle wound on IV abx Objective General VS/I O: Vital Signs: Date Time Temp Pulse Resp B/P B/P Pulse O2 O2 F low FiO2 Mean Ox Delivery Rate 01/28 1114 97.7 70 17 141/89 106.4 99 01/28 0614 97.9 74 17 123/71 88.1 97 01/28 0402 98.2 76 17 132/82 98.7 100 Room air 01/27 2251 98.2 70 17 155/87 109.5 99 Room air 01/27 1828 98.6 77 17 110/68 81.9 95 Room air 01/27 1440 98.1 75 17 122/64 83.1 99 Room air 24 hour I O ending at 0700: 01/28 0700 01/27 1900 Intake Total 690.00 237 Output Total 600 600 Balance 90.00 -363 Intake, IV 450.00 Intake, Oral 240 Intake, Oral 237 Supplement Output, Urine 600 600 Patient Weight Weight (lb): 132 Weight (oz): 4.44 Weight (kg): 60.000 Physical Exam General appearance: awake Cardiovascular: normal heart sounds, regular rat e rhythm Respiratory: aerating well, clear to auscultatio n Abdomen: non-tender, normal bowel sounds, soft, no distention Extremities: no clubbing, no cyanosis, no edema Neuro/NET WEB APPLICATION DEVELOPER: alert, oriented X 3 Skin: left leg open wound Diagnosis, Assessment Plan Free Text DxA P Notes Free text DxA P notes: Osteomyelitis of left ankle with open wound hardware in place Continue iv antibiotics--- IV vancomycin and Zos yn Patient is afebrile xray noted consulted podiatry--- seen by Dr. Ortega---- patient will need surgery ID following Continue wound care Macrocytic anemia Vitamin B12 deficiency --- B12--- low at 186, on replacement psychiatry illness continue home meds hypokalemia replaced lovenox for DVT prophylaxis 01/26 continue iv antibx dw podiatry regarding timing of surgery psych consult appreciated 01/27 acute delerium---psych fu, seroquel started new iv to be placed surgery friday am 01/28- radha on friday at 1141 at 1048 RPT #:[id number] END OF REPORT 2020-01-28 22:23:00-00:00 [facility] ([facility]) Infectious Dis. Progress Note REPORT#:[id number] REPORT STATUS: Signed DATE:01/28/20 TIME: 2222 PATIENT: MAGGIE HOGAN UNIT #: [id number] ROOM/BED: [place] [address] : 56 AGE: 64 SEX: M ATTEND: Jaycee Parmar MD ADM AUTHOR: Vishnu Lopez MD * ALL edits or amendments must be made on the el [employer]/computer document * Subjective Chief Complaint: WOUND LEFT ANKLE OM LEFT ANKLE HARDWARE INFECTION Objective Physical Exam General appearance: awake Head/Eyes: atraumatic, clear cornea, EOMI, saurabh l conjunctiva/sclera, normal eyelids/periorb, normocephalic, PERRL ENT: normal dentition, normal nose, normal phary nx, normal sinus Neck: full range of motion, non-tender, normal thyroid, supple/no meningismus, no bruit/NL carotids, no JVD, no masses or swell ing, no lymphadenopathy Respiratory: clear to auscultation, no distress Abdomen: non-tender, soft, n o distention, no guarding, no mass/organomegaly, no rebound Extremities: moves all, normal capillary refill, normal sensory, no edema Musculoskeletal: full range of motion, normal in spection Neuro/NET WEB APPLICATION DEVELOPER: alert, oriented X 3 Lymphatics: axilla normal, inguinal normal, neck normal, no lymphadenopathy Psychiatry: normal affect, n ormal judgment/insight, normal mood, not homicidal, not suicidal, no hallucinations Diagnosis, Assessment Plan Free Text A P: INFECTED WOUNF LEFT ANKLE MEDIAL SIDE HARDWARE INFECTION HX FRACTURE LEFT ANKLE WITH ORIF TOBACCO ABUSE ANAEMIA HTN WOUND CX WOUND CARE ORTHO EVAL SUGGESTED FOR REMOVAL OF HARD BAUMAN. DIFFICULT TO TX INFECTION IN THE PRESENCE OF HARDWARE DW PT DW N/STAFF DRUG SCR ANTIBX FOR NOEW -- WILL REASSESS 01/22 AWAIT PODIATRY INPUT ANTIBX RECOMMEND FROM ID SIDE FOR REMOVAL OF HARDWARE - -TO BE DECIDED BY PODIATRY IF TECH FEASIBLE 01/23 AWAIT PODIATRY INPUT WOUND CARE ANTIBX 01/24 PODIATRY RECOMMENDATIONS NOTED ANTIBX WOUND CARE. 01/25 ANTIBX WOUND CARE FURTHER PLAN PER PODIATRY FINAL INPUT 01/26 FROM MY SIDE RECOMMENDATIONS REMAINTHE SAME. Electronically Signed by Vishnu Lopez MD on 01/02 11/20 at 0136 RPT #:[id number] END OF REPORT 2020-01-28 12:26:00-00:00 [facility] ([facility]) Podiatry Progress Note REPORT#:[id number] REPORT STATUS: Signed DATE:01/28/20 TIME: 1226 PATIENT: MAGGIE HOGAN UNIT #: [id number] ROOM/BED: [place] [address] : 56 AGE: 64 SEX: M ATTEND: Jaycee Mendoza MD ADM AUTHOR: Willian Alicea DPM * ALL edits or amendments must be made on the [employer]/computer document * General VS/I O: Last Documented: Result Date Time Pulse Ox 99 01/27 1038 B/P 135/79 01/27 1038 B/P Mean 97.7 01/27 1038 O2 Delivery Room air 01/27 1038 Temp 36.9 01/27 1038 Pulse 78 01/27 1038 Resp 17 01/27 1038 FiO2 21 01/22 1855 O2 Flow Rate 0 01/22 0753 24 hour I O ending at 0700: 01/27 0700 01/26 1900 Intake Total 300 960 Output Total 200 1200 Balance 100 -240 Intake, Oral 300 720 Intake, Oral 240 Supplement Number Voids 1 Output, Urine 200 1200 Patient Weight Weight (lb): 132 Weight (oz): 4.44 Weight (kg): 60.000 Subjective Chief complaint: ulceration left Objective General Medications: Active Meds + DC'd Last 24 Hrs Silver Sulfadiazine 1 APPLIC DAILY TOPICAL Cyanocobalamin 1,000 MCG DAILY PO Enoxaparin Sodium 40 MG Q24H SUBQ Acetaminophen 650 MG Q4H PRN PRN PO Ondansetron HCl 4 MG Q6H PRN PRN IV Piperacillin Sod/Tazobactam Sod 3.375 GM Q8H IV Sodium Chloride 100 ML Vancomycin HCl 1,000 MG Q12H IV Sodium Chloride 250 ML Physical Exam Wound/incision: Location: left medial foot full thickness ulceration with fibrotic base with no active purulence noted. mild periwound erythema no edema noted. Extremities: Left pedal pulses, Left abnormal capillary refil l, Left decreased range of motion, Right pedal pulses, Right abnormal capil chriss refill, Right decreased range of motion LE vascular pulse assess: Palpable R posterior tibialis, Palpable L anaesthesiologist ior tibialis, Palpable R dorsalis pedis, Palpable L dorsalis pedis Capillary refill: Capillary refill (in seconds): > 5 seconds Right foot, > 5 seconds Left foot Foot: abnormal ROM, neurological deficit, vascul ar deficit Musculoskeletal: Musculoskeletal: decreased ROM Neuro/NET WEB APPLICATION DEVELOPER: alert Skin: abnormal color, atrophic shiny skin Diagnosis, Assessment Plan Free Text A P: Impression: 1. Left ankle full thickness ulceration possible OM 2. Tobacco dependence Plan: seen and evaluated DVT prophylaxis per medicine Abx per ID x-ray noted Start local wound care. Wound cultures ordered Will possibly need debridement with possible ilir dware removal. Hardware appears to be not under wound but proxi mal plan for removal friday/npo friday dr alicea Electronically Signed by Willian Alicea DPM on at 1227 RPT #:[id number] END OF REPORT 2020-01-28 11:53:00-00:00 [facility] Progress Note REPORT#:[id number] REPORT STATUS: Signed DATE:01/28/20 TIME: 1153 PATIENT: MAGGIE HOGAN UNIT #: [id number] ROOM/BED: [place] [address] : 56 AGE: 64 SEX: M ATTEND: Jaycee Parmar MD ADM AUTHOR: Swathi Whitten MD * ALL edits or amendments must be made on the [employer]/computer document * Subjective Chief Complaint: Follow-up left ankle wound pulled out iv again on iv antibx pain controlled Review of Systems Constitutional: Denies: fever. Respiratory: Denies: SOB, wheezing. Cardiovascular: Denies: chest pain, edema. GI: Denies: nausea, vomiting. Objective General VS/I O: Vital Signs: Date Time Temp Pulse Resp B/P B/P Pulse O2 O2 F low FiO2 Mean Ox Delivery Rate 01/27 1440 36.7 75 17 122/64 83.1 99 Room air 01/27 1038 36.9 78 17 135/79 97.7 99 Room air 01/27 0634 36.7 69 17 146/81 102.7 99 Room air 01/27 219 36.8 69 17 131/76 94.2 100 Room air 01/27 021 36.8 69 17 131/76 94.2 100 Room air 01/27 021 36.8 69 17 131/76 94.2 100 Room air 01/26 2327 37.0 73 18 150/81 104.0 98 Room air 01/26 2327 37.0 73 18 150/81 104.0 98 Room air 01/26 1907 36.8 79 18 130/76 93.7 100 Room air 01/26 1907 36.8 79 18 130/76 93.7 100 Room air 24 hour I O ending at 0700: 01/26 1900 01/27 0700 Intake Total 960 300 Output Total 1200 200 Balance -240 100 Intake, Oral 720 300 Intake, Oral 240 Supplement Number Voids 1 Output, Urine 1200 200 Patient Weight Weight (lb): 132 Weight (oz): 4.44 Weight (kg): 60.000 Physical Exam General appearance: alert, awake, oriented Cardiovascular: normal heart sounds, regular rat e rhythm Respiratory: aerating well, clear to auscultatio n Abdomen: non-tender, normal bowel sounds, soft, no distention Extremities: no clubbing, no cyanosis, no edema Neuro/NET WEB APPLICATION DEVELOPER: alert, oriented X 3 Skin: left leg open wound Results Findings/Data: Laboratory Tests 01/27 630 Chemistry Sodium (134.0 - 147.0 mmol/l) 139 Potassium (3.6 - 5.2 mmol/L) 3.8 Chloride (98.0 - 107.0 mmol/l) 106 Carbon Dioxide (21.0 - 33.0 mmol/l) 26.9 Anion Gap (0 - 20) 9.9 BUN (7.0 - 18.0 mg/dl) 15 Creatinine (0.60 - 1.30 mg/dL) 0.60 Est GFR ( Amer) (97 - 109 mL/min) 175 H Est GFR (Non-Af Amer) (80 - 90 mL/min) 145 H Glucose (70.0 - 110.0 mg/dl) 93 Calcium (8.0 - 10.5 mg/dl) 9.2 Laboratory Tests 01/27 630 Hematology WBC (4.5 - 11.0 K/mm3) 7.5 RBC (4.40 - 5.90 M/mm3) 2.93 L Hgb (13.0 - 17.0 gm/dL) 10.1 L Hct (36.0 - 48.0 %) 32.3 L MCV (80.0 - 94.0 UM3) 110.2 H MCH (25.5 - 32.5 UUG) 34.5 H MCHC (29.0 - 35.5 gm/dL) 31.3 RDW (11.5 - 15.0 %) 14.2 Plt Count (150 - 400 K/mm3) 340 MPV (7.4 - 10.4 fl) 10.4 Neut % (Auto) (49.0 - 76.0 %) 52.2 Lymph % (Auto) (23.0 - 38.0 %) 26.2 [place] % (Auto) (1.0 - 10.0 %) 14.5 H Eos % (Auto) (1.0 - 5.0 %) 5.0 Baso % (Auto) (0.0 - 1.0 %) 1.3 H Neut # (Auto) (2.4 - 6.3 K/mm3) 3.9 Lymph # (Auto) (1.2 - 4.0 K/mm3) 2.0 [place] # (Auto) (0.0 - 0.6 K/mm3) 1.1 H Eos # (Auto) (0.0 - 0.7 K/MM3) 0.4 Baso # (Auto) (0.0 - 0.2 K/mm3) 0.1 Absolute Nucleated RBC (0.00 - 0.01 X10 3uL) 0. 00 Immature Gran % (0.0 - 0.4 %) 0.8 H Nucleated RBC % (0.0 - 0.1 %) 0.0 Immature Gran # (0.00 - 0.07 x10 3/uL) 0.06 Platelet Estimate ADQ Morphology Comment NM Laboratory Tests 01/27 1355 Serology SARS-CoV-2 Ag (Rapid) (NEGATIVE) NEGATIVE Diagnosis, Assessment Plan Problem List/A P: 1. Osteomyelitis of ankle and foot 2. Tobacco dependence Free Text DxA P Notes Free text DxA P notes: Osteomyelitis of left ankle with open wound hardware in place Continue iv antibiotics--- IV vancomycin and Zos yn Patient is afebrile xray noted consulted podiatry--- seen by Dr. Ortega---- patient will need surgery ID following Continue wound care Macrocytic anemia Vitamin B12 deficiency --- B12--- low at 186, on replacement psychiatry illness continue home meds hypokalemia replaced lovenox for DVT prophylaxis 01/26 continue iv antibx dw podiatry regarding timing of surgery psych consult appreciated 01/27 acute delerium---psych fu, seroquel started new iv to be placed surgery friday am Electronically Signed by Swathi Whitten MD on at 1811 RPT #:[id number] END OF REPORT 2020-01-27 23:02:00-00:[address] [facility] ([facility]) Infectious Dis. Progress Note REPORT#:[id number] REPORT STATUS: Signed DATE:01/27/20 TIME: 2301 PATIENT: MAGGIE HOGAN UNIT #: [id number] ROOM/BED: [place] [address] : 56 AGE: 64 SEX: M ATTEND: Jaycee Parmar MD ADM AUTHOR: Vishnu Lopez MD * ALL edits or amendments must be made on the [employer]/computer document * Subjective Chief Complaint: WOUND LEFT ANKLE OM LEFT ANKLE HARDWARE INFECTION Patient reports: No: complaints. Nursing reports: No: complaints. Objective General VS/I O: Last Documented: Result Date Time Pulse Ox 98 01/26 2327 B/P 150/81 01/26 2327 B/P Mean 104.0 01/26 2327 O2 Delivery Room air 01/26 2327 Temp 37.0 01/26 2327 Pulse 73 01/26 2327 Resp 18 01/26 2327 FiO2 21 01/22 185 O2 Flow Rate 0 01/22 0753 Vital Signs Date Temp Pulse Resp B/P B/P Mean Pulse Ox FiO 2 01/26 36.5-37.0 73-86 18- 126-150/76-85 93.7- 104.4 97-100 24 hour I O ending at 0700: 01/27 0700 01/26 1900 Intake Total 300 960 Output Total 200 1200 Balance 100 -240 Intake, Oral 300 720 Intake, Oral 240 Supplement Number Voids 1 Output, Urine 200 1200 Patient Weight Weight (lb): 132 Weight (oz): 4.44 Weight (kg): 60.000 Medications: Active Meds + DC'd Last 24 Hrs Silver Sulfadiazine 1 APPLIC DAILY TOPICAL Cyanocobalamin 1,000 MCG DAILY PO Enoxaparin Sodium 40 MG Q24H SUBQ Acetaminophen 650 MG Q4H PRN PRN PO Ondansetron HCl 4 MG Q6H PRN PRN IV Piperacillin Sod/Tazobactam Sod 3.375 GM Q8H IV Sodium Chloride 100 ML Vancomycin HCl 1,000 MG Q12H IV Sodium Chloride 250 ML Physical Exam General appearance: awake Head/Eyes: atraumatic, clear cornea, EOMI, saurabh l conjunctiva/sclera, normal eyelids/periorb, normocephalic, PERRL ENT: normal dentition, normal nose, normal phary nx, normal sinus Neck: full range of motion, non-tender, normal thyroid, supple/no meningismus, no bruit/NL carotids, no JVD, no masses or swell ing, no lymphadenopathy Respiratory: clear to auscultation, no distress Abdomen: non-tender, soft, n o distention, no guarding, no mass/organomegaly, no rebound Extremities: moves all, normal capillary refill, normal sensory, no edema Musculoskeletal: full range of motion, normal in spection Neuro/NET WEB APPLICATION DEVELOPER: alert, oriented X 3 Lymphatics: axilla normal, inguinal normal, neck normal, no lymphadenopathy Psychiatry: normal affect, n ormal judgment/insight, normal mood, not homicidal, not suicidal, no hallucinations Results Findings/Data: Laboratory Tests 01/26 1245 Toxicology Vancomycin Trough (10 - 20 mcg/mL) 12.9 Diagnosis, Assessment Plan Free Text A P: INFECTED WOUNF LEFT ANKLE MEDIAL SIDE HARDWARE INFECTION HX FRACTURE LEFT ANKLE WITH ORIF TOBACCO ABUSE ANAEMIA HTN WOUND CX WOUND CARE ORTHO EVAL SUGGESTED FOR REMOVAL OF HARD BAUMAN. DIFFICULT TO TX INFECTION IN THE PRESENCE OF HARDWARE DW PT DW N/STAFF DRUG SCR ANTIBX FOR NOEW -- WILL REASSESS 01/22 AWAIT PODIATRY INPUT ANTIBX RECOMMEND FROM ID SIDE FOR REMOVAL OF HARDWARE - -TO BE DECIDED BY PODIATRY IF TECH FEASIBLE 01/23 AWAIT PODIATRY INPUT WOUND CARE ANTIBX 01/24 PODIATRY RECOMMENDATIONS NOTED ANTIBX WOUND CARE. 01/25 ANTIBX WOUND CARE FURTHER PLAN PER PODIATRY FINAL INPUT 01/26 FROM MY SIDE RECOMMENDATIONS REMAINTHE SAME. Electronically Signed by Vishnu Lopez MD on 01/02 09/19 at 0026 RPT #:[id number] END OF REPORT 2020-01-27 13:58:00-00:00 [facility] ([facility]) Hospitalist Progress Note REPORT#:[id number] REPORT STATUS: Signed DATE:01/27/20 TIME: 1358 PATIENT: MAGGIE HOGAN UNIT #: [id number] ROOM/BED: [place] [address] : 56 AGE: 64 SEX: M ATTEND: Jaycee Mendoza MD ADM AUTHOR: Swathi Whitten MD * ALL edits or amendments must be made on the [employer]/computer document * Subjective Chief Complaint: Follow-up left ankle wound Wound care done seen in sitter room no agitation now midline placed Review of Systems Constitutional: Denies: fever. Respiratory: Denies: SOB, wheezing. Cardiovascular: Denies: chest pain, edema. GI: Denies: nausea, vomiting. Objective General VS/I O: Vital Signs: Date Time Temp Pulse Resp B/P B/P Pulse O2 O2 F low FiO2 Mean Ox Delivery Rate 01/26 722 36.7 77 18 134/79 97.4 100 Room air 01/26 032 36.8 78 18 142/85 104.4 97 01/26 0006 36.6 81 18 122/77 92.0 98 01/26 2012 36.7 80 18 138/84 102.2 98 01/26 2012 36.7 80 18 138/84 102.2 98 24 hour I O ending at 0700: 01/25 1900 01/26 0700 Intake Total 120 600 Output Total Balance 120 600 Intake, Oral 120 600 Number Voids 3 Patient Weight Weight (lb): 132 Weight (oz): 4.44 Weight (kg): 60.000 Results Findings/Data: Laboratory Tests 01/26 1245 Toxicology Vancomycin Trough (10 - 20 mcg/mL) 12.9 Free Text Obj Notes Free Text Obj Notes: PHYSICAL EXAMINATION General appearance: alert, awake, no acute dist ress Head/Eyes: atraumatic, normocephalic, PERRL, EO ND ENT: normal ear left, normal ear right, normal nose, normal pharynx Neck: full range of motion, supple/no meningism us Cardiovascular: normal S1/S2, regular rate rhyt hm Respiratory/chest: good breath sounds, symmetri c expansion, no distress Abdomen: soft, non-tender, normal bowel sounds Genitourinary: deferred Extremities: moves all, no clubbing, no cyanosi s, no edema Musculoskeletal: full range of motion, normal i nspection Neuro/NET WEB APPLICATION DEVELOPER alert, oriented X 3, CNII-XII intact Skin: Left ankle open wound hardware in place Psychiatry: normal affect, normal judgment/insi ght, normal mood Diagnosis, Assessment Plan Problem List/A P: 1. Osteomyelitis of ankle and foot 2. Tobacco dependence Free Text DxA P Notes Free text DxA P notes: Osteomyelitis of left ankle with open wound hardware in place Continue iv antibiotics--- IV vancomycin and Zos yn Patient is afebrile xray noted consulted podiatry--- seen by Dr. Ortega---- patient will need surgery ID following Continue wound care Macrocytic anemia Vitamin B12 deficiency --- B12--- low at 186, on replacement psychiatry illness continue home meds hypokalemia replaced lovenox for DVT prophylaxis 01/26 continue iv antibx dw podiatry regarding timing of surgery psych consult appreciated Electronically Signed by Swathi Whitten MD on at 1630 RPT #:[id number] END OF REPORT 2020-01-26 23:18:00-00:00 [facility] Progress Note REPORT#:[id number] REPORT STATUS: Signed DATE:01/26/20 TIME: 2317 PATIENT: MAGGIE HOGAN UNIT #: [id number] ROOM/BED: [place] [address] : 56 AGE: 64 SEX: M ATTEND: Jaycee Parmar MD ADM AUTHOR: Vishnu Lopez MD * ALL edits or amendments must be made on the [employer]/computer document * Subjective Chief Complaint: WOUND LEFT ANKLE OM LEFT ANKLE HARDWARE INFECTION Patient reports: No: complaints. Nursing reports: No: complaints. Objective General VS/I O: Last Documented: Result Date Time Pulse Ox 98 01/26 000 B/P 122/77 01/26 000 B/P Mean 92.0 01/26 6 Temp 36.6 01/26 000 Pulse 81 01/26 6 Resp 18 01/26 000 O2 Delivery Room air 01/25 1525 FiO2 21 01/22 1855 O2 Flow Rate 0 01/22 0753 Vital Signs Date Temp Pulse Resp B/P B/P Mean Pulse Ox FiO2 01/25-01/26 36.6-37.0 68-89 18 122-154/76-89 92 .0-110.3 97-100 24 hour I O ending at 0700: 01/26 0700 01/25 1900 Intake Total 300 120 Output Total Balance 300 120 Intake, Oral 300 120 Number Voids 1 Patient Weight Weight (lb): 132 Weight (oz): 4.44 Weight (kg): 60.000 Medications: Active Meds + DC'd Last 24 Hrs Silver Sulfadiazine 1 APPLIC DAILY TOPICAL Cyanocobalamin 1,000 MCG DAILY PO Enoxaparin Sodium 40 MG Q24H SUBQ Acetaminophen 650 MG Q4H PRN PRN PO Ondansetron HCl 4 MG Q6H PRN PRN IV Piperacillin Sod/Tazobactam Sod 3.375 GM Q8H IV Sodium Chloride 100 ML Vancomycin HCl 1,000 MG Q12H IV Sodium Chloride 250 ML Physical Exam General appearance: awake Head/Eyes: atraumatic, clear cornea, EOMI, saurabh l conjunctiva/sclera, normal eyelids/periorb, normocephalic, PERRL ENT: normal dentition, normal nose, normal phary nx, normal sinus Neck: full range of motion, non-tender, normal thyroid, supple/no meningismus, no bruit/NL carotids, no JVD, no masses or swell ing, no lymphadenopathy Respiratory: clear to auscultation, no distress Abdomen: non-tender, soft, n o distention, no guarding, no mass/organomegaly, no rebound Extremities: moves all, normal capillary refill, normal sensory, no edema Musculoskeletal: full range of motion, normal in spection Neuro/NET WEB APPLICATION DEVELOPER: alert, oriented X 3 Lymphatics: axilla normal, inguinal normal, neck normal, no lymphadenopathy Psychiatry: normal affect, n ormal judgment/insight, normal mood, not homicidal, not suicidal, no hallucinations Diagnosis, Assessment Plan Free Text A P: INFECTED WOUNF LEFT ANKLE MEDIAL SIDE HARDWARE INFECTION HX FRACTURE LEFT ANKLE WITH ORIF TOBACCO ABUSE ANAEMIA HTN WOUND CX WOUND CARE ORTHO EVAL SUGGESTED FOR REMOVAL OF HARD BAUMAN. DIFFICULT TO TX INFECTION IN THE PRESENCE OF HARDWARE DW PT DW N/STAFF DRUG SCR ANTIBX FOR NOEW -- WILL REASSESS 01/22 AWAIT PODIATRY INPUT ANTIBX RECOMMEND FROM ID SIDE FOR REMOVAL OF HARDWARE - -TO BE DECIDED BY PODIATRY IF TECH FEASIBLE 01/23 AWAIT PODIATRY INPUT WOUND CARE ANTIBX 01/24 PODIATRY RECOMMENDATIONS NOTED ANTIBX WOUND CARE. 01/25 ANTIBX WOUND CARE FURTHER PLAN PER PODIATRY FINAL INPUT Electronically Signed by Vishnu Lopez MD on 01/02 08/20 at 0123 RPT #:[id number] END OF REPORT 2020-01-26 13:10:00-00:00 [facility] Progress Note REPORT#:[id number] REPORT STATUS: Signed DATE:01/26/20 TIME: 1310 PATIENT: MAGGIE HOGAN UNIT #: [id number] ROOM/BED: [place] [address] : 56 AGE: 64 SEX: M ATTEND: Jaycee Parmar MD ADM AUTHOR: Swathi Whitten MD * ALL edits or amendments must be made on the [employer]/computer document * Subjective Chief Complaint: Follow-up left ankle wound Wound care done Objective General VS/I O: Vital Signs: Date Time Temp Pulse Resp B/P B/P Pulse O2 O2 F low FiO2 Mean Ox Delivery Rate 01/25 1525 79 18 154/89 110.3 100 Room air 01/25 0654 37.0 89 18 135/76 96.0 97 Room air 01/25 0416 36.9 68 18 136/86 102.5 99 Room air 01/24 2310 36.8 78 16 132/72 91.8 100 Room air 01/24 1929 36.9 88 17 116/68 84.3 98 01/24 1606 36.8 79 18 123/73 89.7 99 Room air 24 hour I O ending at 0700: 01/24 1900 01/25 0700 Intake Total 480 450.00 Output Total Balance 480 450.00 Intake, IV 450.00 Intake, Oral 480 Patient Weight Weight (lb): 132 Weight (oz): 4.44 Weight (kg): 60.000 Free Text Obj Notes Free Text Obj Notes: PHYSICAL EXAMINATION General appearance: alert, awake, no acute dist ress Head/Eyes: atraumatic, normocephalic, PERRL, EO ND ENT: normal ear left, normal ear right, normal nose, normal pharynx Neck: full range of motion, supple/no meningism us Cardiovascular: normal S1/S2, regular rate rhyt hm Respiratory/chest: good breath sounds, symmetri c expansion, no distress Abdomen: soft, non-tender, normal bowel sounds Genitourinary: deferred Extremities: moves all, no clubbing, no cyanosi s, no edema Musculoskeletal: full range of motion, normal i nspection Neuro/NET WEB APPLICATION DEVELOPER alert, oriented X 3, CNII-XII intact Skin: Left ankle open wound hardware in place Psychiatry: normal affect, normal judgment/insi ght, normal mood Diagnosis, Assessment Plan Problem List/A P: 1. Osteomyelitis of ankle and foot 2. Tobacco dependence Free Text DxA P Notes Free text DxA P notes: Osteomyelitis of left ankle with open wound hardware in place Continue iv antibiotics--- IV vancomycin and Zos yn Patient is afebrile xray noted consulted podiatry--- seen by Dr. Ortega---- patient will need surgery ID following Continue wound care Macrocytic anemia Vitamin B12 deficiency --- B12--- low at 186, on replacement psychiatry illness continue home meds hypokalemia replaced lovenox for DVT prophylaxis Electronically Signed by Swathi Whitten MD on at 1629 RPT #:[id number] END OF REPORT 2020-01-26 10:50:00-00:00 [facility] ([facility]) Clinical Note REPORT#:[id number] REPORT STATUS: Signed DATE:01/26/20 TIME: 1050 PATIENT: MAGGIE HOGAN UNIT #: [id number] ROOM/BED: [place] [address] : 56 AGE: 64 SEX: M ATTEND: Jaycee Parmar MD ADM AUTHOR: Tali Gonzales NP * ALL edits or amendments must be made on the el [employer]/computer document * Clinical Note Note: Wound care consult for non-healing ankle wound. Patient has infected ankle hardware and podiatry has be en consulted for management and ordered wound care. I will sign off, but please reconsult me if need ed for other issues. Electronically Signed by Tali Gonzales NP on 01/25 at 1051 RPT #:[id number] END OF REPORT 2020-01-26 09:58:00-00:00 [facility] ([facility]) Podiatry Progress Note REPORT#:[id number] REPORT STATUS: Signed DATE:01/26/20 TIME: 957 PATIENT: MAGGIE HOGAN UNIT #: [id number] ROOM/BED: [place] [address] : 56 AGE: 64 SEX: M ATTEND: Jaycee Parmar MD ADM AUTHOR: Willian Alicea DPM * ALL edits or amendments must be made on the [employer] document * General VS/I O: Last Documented: Result Date Time Pulse Ox 97 01/25 0654 B/P 135/76 01/25 0654 B/P Mean 96.0 01/25 0654 O2 Delivery Room air 01/25 0654 Temp 37.0 01/25 0654 Pulse 89 01/25 0654 Resp 18 01/25 0654 FiO2 21 01/22 1855 O2 Flow Rate 0 01/22 0753 24 hour I O ending at 0700: 01/25 0700 01/24 1900 Intake Total 450.00 480 Output Total Balance 450.00 480 Intake, IV 450.00 Intake, Oral 480 Patient Weight Weight (lb): 132 Weight (oz): 4.44 Weight (kg): 60.000 Subjective Chief complaint: ulceration left Objective Physical Exam Wound/incision: Location: left medial foot full thickness ulceration with fibrotic base with no active purulence noted. mild periwound erythema no edema noted. Extremities: Left pedal pulses, Left abnormal capillary refil l, Left decreased range of motion, Right pedal pulses, Right abnormal capil chriss refill, Right decreased range of motion LE vascular pulse assess: Palpable R posterior tibialis, Palpable L anaesthesiologist ior tibialis, Palpable R dorsalis pedis, Palpable L dorsalis pedis Capillary refill: Capillary refill (in seconds): > 5 seconds Right foot, > 5 seconds Left foot Foot: abnormal ROM, neurological deficit, vascul ar deficit Musculoskeletal: Musculoskeletal: decreased ROM Neuro/NET WEB APPLICATION DEVELOPER: alert Skin: abnormal color, atrophic shiny skin Diagnosis, Assessment Plan Free Text A P: Impression: 1. Left ankle full thickness ulceration possible OM 2. Tobacco dependence Plan: seen and evaluated DVT prophylaxis per medicine Abx per ID x-ray noted Start local wound care. Wound cultures ordered Will possibly need debridement with possible ilir dware removal. Hardware appears to be not under wound but proxi mal Pain control PT/OT Will follow dr alicea Electronically Signed by Willian Alicea DPM on at 1005 RPT #:[id number] END OF REPORT 2020-01-25 23:31:00-00:00 [facility] Progress Note REPORT#:[id number] REPORT STATUS: Signed DATE:01/25/20 TIME: 2330 PATIENT: MAGGIE HOGAN UNIT #: [id number] ROOM/BED: [place] [address] : 56 AGE: 64 SEX: M ATTEND: Jaycee Parmar MD ADM AUTHOR: Vishnu Lopez MD * ALL edits or amendments must be made on the [employer]/computer document * Subjective Chief Complaint: WOUND LEFT ANKLE OM LEFT ANKLE HARDWARE INFECTION Patient reports: No: complaints. Nursing reports: No: complaints. Objective General VS/I O: Last Documented: Result Date Time Pulse Ox 100 01/240 B/P 132/72 01/24 2310 B/P Mean 91.8 01/24 2310 O2 Delivery Room air 01/24 2310 Temp 36.8 01/24 2310 Pulse 78 01/24 2310 Resp 16 01/24 2310 FiO2 21 01/22 1855 O2 Flow Rate 0 01/22 0753 Vital Signs Date Temp Pulse Resp B/P B/P Mean Pulse Ox FiO2 01/24 36.7-36.9 69-98 16-18 112-150/63-90 0.0-9 7 94-100 24 hour I O ending at 0700: 01/25 0700 01/24 1900 Intake Total 480 Output Total Balance 480 Intake, Oral 480 Patient Weight Weight (lb): 132 Weight (oz): 4.44 Weight (kg): 60.000 Medications: Active Meds + DC'd Last 24 Hrs Silver Sulfadiazine 1 APPLIC DAILY TOPICAL Cyanocobalamin 1,000 MCG DAILY PO Enoxaparin Sodium 40 MG Q24H SUBQ Acetaminophen 650 MG Q4H PRN PRN PO Ondansetron HCl 4 MG Q6H PRN PRN IV Piperacillin Sod/Tazobactam Sod 3.375 GM Q8H IV Sodium Chloride 100 ML Vancomycin HCl 1,000 MG Q12H IV Sodium Chloride 250 ML Physical Exam General appearance: awake Head/Eyes: atraumatic, clear cornea, EOMI, saurabh l conjunctiva/sclera, normal eyelids/periorb, normocephalic, PERRL ENT: normal dentition, normal nose, normal phary nx, normal sinus Neck: full range of motion, non-tender, normal thyroid, supple/no meningismus, no bruit/NL carotids, no JVD, no masses or swell ing, no lymphadenopathy Respiratory: clear to auscultation, no distress Abdomen: non-tender, soft, n o distention, no guarding, no mass/organomegaly, no rebound Extremities: moves all, normal capillary refill, normal sensory, no edema Musculoskeletal: full range of motion, normal in spection Neuro/NET WEB APPLICATION DEVELOPER: alert, oriented X 3 Lymphatics: axilla normal, inguinal normal, neck normal, no lymphadenopathy Psychiatry: normal affect, n ormal judgment/insight, normal mood, not homicidal, not suicidal, no hallucinations Diagnosis, Assessment Plan Free Text A P: INFECTED WOUNF LEFT ANKLE MEDIAL SIDE HARDWARE INFECTION HX FRACTURE LEFT ANKLE WITH ORIF TOBACCO ABUSE ANAEMIA HTN WOUND CX WOUND CARE ORTHO EVAL SUGGESTED FOR REMOVAL OF HARD BAUMAN. DIFFICULT TO TX INFECTION IN THE PRESENCE OF HARDWARE DW PT DW N/STAFF DRUG SCR ANTIBX FOR NOEW -- WILL REASSESS 01/22 AWAIT PODIATRY INPUT ANTIBX RECOMMEND FROM ID SIDE FOR REMOVAL OF HARDWARE - -TO BE DECIDED BY PODIATRY IF TECH FEASIBLE 01/23 AWAIT PODIATRY INPUT WOUND CARE ANTIBX 01/24 PODIATRY RECOMMENDATIONS NOTED ANTIBX WOUND CARE. Electronically Signed by Vishnu Lopez MD on 01/02 07/20 at 0040 RPT #:[id number] END OF REPORT 2020-01-25 12:11:00-00:[address] [facility] ([facility]) Hospitalist Progress Note REPORT#:[id number] REPORT STATUS: Signed DATE:01/25/20 TIME: 1211 PATIENT: MAGGIE HOGAN UNIT #: [id number] ROOM/BED: [place] [address] : 56 AGE: 64 SEX: M ATTEND: Jaycee Parmar MD ADM AUTHOR: Swathi Whitten MD * ALL edits or amendments must be made on the [employer] document * Subjective Chief Complaint: Follow-up left ankle wound Wound care done Review of Systems Constitutional: Denies: fever. Respiratory: Denies: SOB, wheezing. Cardiovascular: Denies: chest pain, edema. GI: Denies: nausea, vomiting. Objective General VS/I O: Vital Signs: Date Time Temp Pulse Resp B/P B/P Pulse O2 O2 F low FiO2 Mean Ox Delivery Rate 01/24 1124 36.8 98 18 112/76 88.2 98 Room air 01/24 0653 36.9 69 18 150/90 0.0 100 Room air 01/24 0400 36.7 81 17 138/63 88.2 94 Room air 01/24 0111 36.7 75 18 137/77 97 99 01/23 2040 36.7 85 18 154/93 113.3 98 01/23 1721 76 16 144/84 104.2 100 24 hour I O ending at 0700: 01/23 1900 01/24 0700 Intake Total 650.00 Output Total 750 Balance -100.00 Intake, IV 450.00 Intake, Oral 200 Number 1 Bowel Movements Output, Urine 750 Patient 60 kg Weight Weight Stated/Reported Measurement Method Patient Weight Weight (lb): 132 Weight (oz): 4.44 Weight (kg): 60.000 Free Text Obj Notes Free Text Obj Notes: PHYSICAL EXAMINATION General appearance: alert, awake, no acute dist ress Head/Eyes: atraumatic, normocephalic, PERRL, EO ND ENT: normal ear left, normal ear right, normal nose, normal pharynx Neck: full range of motion, supple/no meningism us Cardiovascular: normal S1/S2, regular rate rhyt hm Respiratory/chest: good breath sounds, symmetri c expansion, no distress Abdomen: soft, non-tender, normal bowel sounds Genitourinary: deferred Extremities: moves all, no clubbing, no cyanosi s, no edema Musculoskeletal: full range of motion, normal i nspection Neuro/NET WEB APPLICATION DEVELOPER alert, oriented X 3, CNII-XII intact Skin: Left ankle open wound hardware in place Psychiatry: normal affect, normal judgment/insi ght, normal mood Diagnosis, Assessment Plan Problem List/A P: 1. Osteomyelitis of ankle and foot 2. Tobacco dependence Free Text DxA P Notes Free text DxA P notes: Osteomyelitis of left ankle with open wound hardware in place Continue iv antibiotics--- IV vancomycin and Zos yn Patient is afebrile xray noted consulted podiatry--- seen by Dr. Ortega---- patient will need surgery ID following Continue wound care Macrocytic anemia Vitamin B12 deficiency --- B12--- low at 186, on replacement psychiatry illness continue home meds hypokalemia replaced lovenox for DVT prophylaxis Electronically Signed by Swathi Whitten MD on at 1355 RPT #:[id number] END OF REPORT 2020-01-25 06:04:00-00:00 [facility] ([facility]) Podiatry Consult Note REPORT#:[id number] REPORT STATUS: Signed DATE:01/25/20 TIME: 06 PATIENT: MAGGIE HOGAN UNIT #: [id number] ROOM/BED: [place] [address] : 56 AGE: 64 SEX: M ATTEND: Jaycee Parmar MD ADM AUTHOR: Kade Ortega DPGeorge * ALL edits or amendments must be made on the [employer]/computer document * History of Present Illness Requesting clinician: Dr. Whitten Reason for consult: left foot wound Chief complaint: left foot wound HPI: 64 year old with unknown his tory presents brought by mental health deputy after noticing wound drainage. Patient is a po or historian. Patient states had ankle fracture and repair in the 1970s, but unknown ti ca frame for wound. Patient denies N/V/F/C/chest pain/SOB. History - Adult longitudinal Additional family history: noncontributory Alcohol use: Denies EtOH use Drug use: Denies recreational drugs Smoking status for patients 13 years old or olde r: Current every day smoker Additional social history: smokes 1 ppd Allergies: Coded Allergies: No Known Allergies (01/21/20) Review of Systems Constitutional: Denies: chills, fatigue, fev er, generalized weakness, lethargy, malaise, recent wt loss. Skin: Denies: abrasion, bruising, contusion, diaphores is, ecchymosis, itching, laceration, rash, swelling. Allergy/Immun: Denies: allergic reaction, anaphylaxis, hives, i tching, rhinorrhea, sneezing. Eyes: Denies: redness, discharge, visual loss/blurred, itching, diplopia, eye pain, photophobia, swelling. ENT: Denies: ear drainage, ear ringing, earache, hear ing loss, mouth pain, nasal congestion, nose bleeding, sinus problem, sore t hroat, throat pain, throat swelling, tongue pain, tongue swelling, toothach e, voice change. Respiratory: Denies: ZAMORA (dyspnea on exertion), hemoptysis, n on productive cough, parox nocturnal dyspnea, pleurisy, pleuritic pain, pneumonia, productive cough (sputum ), SOB, wheezing. Cardiovascular: Denies: chest pain, ZAMORA (dyspnea on exer tion), edema, orthopnea, palpitations, parox nocturnal dyspnea. GI: Denies: abdominal pain, anorexia, constipation, diarrhea, dysphagia, GERD, hematemesis, hematochezia, h iatal hernia, melena, nausea, rectal pain, vomiting. : Denies: dysuria, flank pain, frequency, hematuria, nocturia, penile discharge, penile lesion, testicular pa in, testicular swelling, urgency, urinary retention. Musculoskeletal: Denies: arthritis, extremity pain, extremity swe lling, joint pain, joint swelling, lumbar pain, myalgias, neck pain, thor acic pain. Heme: Denies: adenopathy, bleeding, bruising, petechia e. Endocrine: Denies: cold intolerance, heat intolerance, poly dipsia, polyphagia, polyuria, weight gain, weight loss. Neuro: Denies: bladder dysfunction, bowel dysfunction, change in LOC, confusion, dizziness, focal weakness, gait problem, headach e, lightheaded, numbness, seizure, slurred speech, spinning sensation, syn cope, unable to speak, vision change, weakness. Objective General Medications: Active Meds + DC'd Last 24 Hrs Cyanocobalamin 1,000 MCG DAILY PO Enoxaparin Sodium 40 MG Q24H SUBQ Acetaminophen 650 MG Q4H PRN PRN PO Ondansetron HCl 4 MG Q6H PRN PRN IV Piperacillin Sod/Tazobactam Sod 3.375 GM Q8H IV Sodium Chloride 100 ML Vancomycin HCl 1,000 MG Q12H IV Sodium Chloride 250 ML Physical Exam General appearance: alert, awake Wound/incision: Location: left medial foot full thickness ulceration with fibrotic base with no active purulence noted. mild periwound erythema no isha a noted. Extremities: Left pedal pulses, Left abnormal capillary refil l, Left decreased range of motion, Right pedal pulses, Right abnormal capil chriss refill, Right decreased range of motion LE vascular pulse assess: Palpable R posterior tibialis, Palpable L anaesthesiologist ior tibialis, Palpable R dorsalis pedis, Palpable L dorsalis pedis Capillary refill: Capillary refill (in seconds): > 5 seconds Right foot, > 5 seconds Left foot Foot: abnormal ROM, neurological deficit, vascul ar deficit Musculoskeletal: Musculoskeletal: decreased ROM Neuro/NET WEB APPLICATION DEVELOPER: alert Skin: abnormal color, atrophic shiny skin Results Findings/Data: Microbiology: Date/Time Procedure - Status Source Growth 01/24 818 Wound Culture - COLB FOOT Microbiology: 01/24 818 FOOT: Wound Culture - COLB Microbiology: 01/24 818 FOOT: Wound Culture - COLB Vital Signs: Date Time Temp Pulse Resp B/P B/P Pulse O2 O2 F low FiO2 Mean Ox Delivery Rate 01/24 1929 98.4 88 17 116/68 84.3 98 01/24 1606 98.2 79 18 123/73 89.7 99 Room air 01/24 1124 98.2 98 18 112/76 88.2 98 Room air 01/24 0653 98.4 69 18 150/90 0.0 100 Room air 01/24 0400 98.1 81 17 138/63 88.2 94 Room air 01/24 0111 98.1 75 18 137/77 97 99 Diagnosis, Assessment Plan Free Text A P: Impression: 1. Left ankle full thickness ulceration possible OM 2. Tobacco dependence Plan: seen and evaluated DVT prophylaxis per medicine Abx per ID x-ray noted Start local wound care. Wound cultures ordered Will possibly need debridement with possible ilir dware removal. Hardware appears to be not under wound but proxi mal Pain control PT/OT Will follow Covering for Dr. Castaneda/Juvenal. at 2303 RPT #:[id number] END OF REPORT 2020-01-24 23:43:00-00:00 [facility] Progress Note REPORT#:[id number] REPORT STATUS: Signed DATE:01/24/20 TIME: 2342 PATIENT: MAGGIE HOGAN UNIT #: [id number] ROOM/BED: [place] [address] : 56 AGE: 64 SEX: M ATTEND: Jaycee Parmar MD ADM AUTHOR: Vishnu Lopez MD * ALL edits or amendments must be made on the [employer]/computer document * Subjective Chief Complaint: WOUND LEFT ANKLE OM LEFT ANKLE HARDWARE INFECTION Patient reports: No: complaints. Nursing reports: No: complaints. Unable to obtain: patient condition Objective General VS/I O: Last Documented: Result Date Time Pulse Ox 98 01/24 2040 B/P 154/93 01/24 2040 B/P Mean 113.3 01/24 2040 Temp 36.7 01/24 2040 Pulse 85 01/24 2040 Resp 18 01/24 2040 O2 Delivery Room air 01/23 1100 FiO2 21 01/22 1855 O2 Flow Rate 0 01/22 0753 Vital Signs Date Temp Pulse Resp B/P B/P Mean Pulse Ox FiO2 01/23 36.7-36.9 61-85 16-18 109-154/71-93 83.4- 113.3 98-100 24 hour I O ending at 0700: 01/24 0700 01/23 1900 Intake Total Output Total Balance Patient 60 kg Weight Weight Stated/Reported Measurement Method Patient Weight Weight (lb): 132 Weight (oz): 4.44 Weight (kg): 60.000 Medications: Active Meds + DC'd Last 24 Hrs Cyanocobalamin 1,000 MCG DAILY PO Enoxaparin Sodium 40 MG Q24H SUBQ Acetaminophen 650 MG Q4H PRN PRN PO Ondansetron HCl 4 MG Q6H PRN PRN IV Piperacillin Sod/Tazobactam Sod 3.375 GM Q8H IV Sodium Chloride 100 ML Vancomycin HCl 1,000 MG Q12H IV Sodium Chloride 250 ML Physical Exam General appearance: awake Head/Eyes: atraumatic, clear cornea, EOMI, saurabh l conjunctiva/sclera, normal eyelids/periorb, normocephalic, PERRL ENT: normal dentition, normal nose, normal phary nx, normal sinus Neck: full range of motion, non-tender, normal thyroid, supple/no meningismus, no bruit/NL carotids, no JVD, no masses or swell ing, no lymphadenopathy Respiratory: clear to auscultation, no distress Abdomen: non-tender, soft, n o distention, no guarding, no mass/organomegaly, no rebound Extremities: moves all, normal capillary refill, normal sensory, no edema Musculoskeletal: full range of motion, normal in spection Neuro/NET WEB APPLICATION DEVELOPER: alert, oriented X 3 Lymphatics: axilla normal, inguinal normal, neck normal, no lymphadenopathy Psychiatry: normal affect, n ormal judgment/insight, normal mood, not homicidal, not suicidal, no hallucinations Diagnosis, Assessment Plan Free Text A P: INFECTED WOUNF LEFT ANKLE MEDIAL SIDE HARDWARE INFECTION HX FRACTURE LEFT ANKLE WITH ORIF TOBACCO ABUSE ANAEMIA HTN WOUND CX WOUND CARE ORTHO EVAL SUGGESTED FOR REMOVAL OF HARD BAUMAN. DIFFICULT TO TX INFECTION IN THE PRESENCE OF HARDWARE DW PT DW N/STAFF DRUG SCR ANTIBX FOR NOEW -- WILL REASSESS 01/22 AWAIT PODIATRY INPUT ANTIBX RECOMMEND FROM ID SIDE FOR REMOVAL OF HARDWARE - -TO BE DECIDED BY PODIATRY IF TECH FEASIBLE 01/23 AWAIT PODIATRY INPUT WOUND CARE ANTIBX Electronically Signed by Vishnu Lopez MD on 01/02 06/20 at 0030 [facility] #:[id number] END OF REPORT 2020-01-24 12:29:00-00:00 [facility] Hospitalist Progress Note REPORT#:[id number] REPORT STATUS: Signed DATE:01/24/20 TIME: 1229 PATIENT: MAGGIE HOGAN UNIT #: [id number] ROOM/BED: [place] [address] : 56 AGE: 64 SEX: M ATTEND: Jaycee Parmar MD ADM AUTHOR: Swathi Whitten MD * ALL edits or amendments must be made on the [employer]/computer document * Subjective Chief Complaint: Patient seen and examined No new issues noted Review of Systems Constitutional: Denies: fever. Respiratory: Denies: SOB, wheezing. Cardiovascular: Denies: chest pain, orthopnea. Objective General VS/I O: Vital Signs: Date Time Temp Pulse Resp B/P B/P Pulse O2 O2 F low FiO2 Mean Ox Delivery Rate 01/23 1100 36.9 73 18 109/71 83.4 100 Room air 01/23 0746 36.7 81 18 144/81 101.9 99 01/23 0511 36.8 61 18 142/73 96 99 01/23 0057 36.9 84 18 133/81 98 99 01/22 2200 37.0 80 18 154/91 111.9 99 01/22 1855 98 Room air 21 01/22 1448 36.8 55 18 93/47 62.4 99 Room air 24 hour I O ending at 0700: 01/22 1900 01/23 0700 Intake Total 360 750.00 Output Total Balance 360 750.00 Intake, IV 450.00 Intake, Oral 360 300 Number Voids 3 Patient Weight Weight (lb): 132 Weight (oz): 4.44 Weight (kg): 60.000 Free Text Obj Notes Free Text Obj Notes: PHYSICAL EXAMINATION General appearance: alert, awake, no acute dist ress Head/Eyes: atraumatic, normocephalic, PERRL, EO ND ENT: normal ear left, normal ear right, normal nose, normal pharynx Neck: full range of motion, supple/no meningism us Cardiovascular: normal S1/S2, regular rate rhyt hm Respiratory/chest: good breath sounds, symmetri c expansion, no distress Abdomen: soft, non-tender, normal bowel sounds Genitourinary: deferred Extremities: moves all, no clubbing, no cyanosi s, no edema Musculoskeletal: full range of motion, normal i nspection Neuro/NET WEB APPLICATION DEVELOPER alert, oriented X 3, CNII-XII intact Skin: dry, intact Psychiatry: normal affect, normal judgment/insi ght, normal mood Diagnosis, Assessment Plan Problem List/A P: 1. Osteomyelitis of ankle and foot 2. Tobacco dependence Free Text DxA P Notes Free text DxA P notes: Osteomyelitis of left ankle with open wound hardware in place Continue iv antibiotics--- IV vancomycin and Zos yn Patient is afebrile xray noted consulted podiatry--- awaiting consult ID following Continue wound care Macrocytic anemia Vitamin B12 deficiency ---check B12--- low at 18 6, on replacement psychiatry illness continue home meds hypokalemia replaced lovenox for DVT prophylaxis Electronically Signed by Swathi Whitten MD on at 1232 RPT #:[id number] END OF REPORT 2020-01-23 23:42:00-00:00 [facility] Infectious Dis. Progress Note REPORT#:[id number] REPORT STATUS: Signed DATE:01/23/20 TIME: 2341 PATIENT: MAGGIE HOGAN UNIT #: [id number] ROOM/BED: [place] [address] : 56 AGE: 64 SEX: M ATTEND: Jaycee Parmar MD ADM AUTHOR: Vishnu Lopez MD * ALL edits or amendments must be made on the [employer]/computer document * Subjective Chief Complaint: WOUND LEFT ANKLE OM LEFT ANKLE HARDWARE INFECTION Patient reports: No: complaints. Nursing reports: No: complaints. Objective General VS/I O: Last Documented: Result Date Time Pulse Ox 99 01/23 005 B/P 133/81 01/23 57 B/P Mean 98 01/23 57 Temp 36.9 01/23 57 Pulse 84 01/23 57 Resp 18 01/23 57 FiO2 21 01/22 185 O2 Delivery Room air 01/22 1855 O2 Flow Rate 0 01/22 0753 Vital Signs Date Temp Pulse Resp B/P B/P Mean Pulse Ox FiO2 01/22-01/23 36.7-37.0 55-84 18- 93-154/47-91 62.4-111.9 97-100 21 24 hour I O ending at 0700: 01/23 0700 01/22 1900 Intake Total 360 Output Total Balance 360 Intake, Oral 360 Patient Weight Weight (lb): Weight (oz): Weight (kg): 60.000 Medications: Active Meds + DC'd Last 24 Hrs Cyanocobalamin 1,000 MCG DAILY PO Enoxaparin Sodium 40 MG Q24H SUBQ Acetaminophen 650 MG Q4H PRN PRN PO Ondansetron HCl 4 MG Q6H PRN PRN IV Piperacillin Sod/Tazobactam Sod 3.375 GM Q8H IV Sodium Chloride 100 ML Vancomycin HCl 1,000 MG Q12H IV Sodium Chloride 250 ML Physical Exam General appearance: awake Head/Eyes: atraumatic, clear cornea, EOMI, saurabh l conjunctiva/sclera, normal eyelids/periorb, normocephalic, PERRL ENT: normal dentition, normal nose, normal phary nx, normal sinus Neck: full range of motion, non-tender, normal thyroid, supple/no meningismus, no bruit/NL carotids, no JVD, no masses or swell ing, no lymphadenopathy Respiratory: clear to auscultation, no distress Abdomen: non-tender, soft, n o distention, no guarding, no mass/organomegaly, no rebound Extremities: moves all, normal capillary refill, normal sensory, no edema Musculoskeletal: full range of motion, normal in spection Neuro/NET WEB APPLICATION DEVELOPER: alert, oriented X 3 Lymphatics: axilla normal, inguinal normal, neck normal, no lymphadenopathy Psychiatry: normal affect, n ormal judgment/insight, normal mood, not homicidal, not suicidal, no hallucinations Results Findings/Data: Laboratory Tests 01/22 01/22 0310 0310 Chemistry Sodium (134.0 - 147.0 mmol/l) 134 Potassium (3.6 - 5.2 mmol/L) 4.1 Chloride (98.0 - 107.0 mmol/l) 102 Carbon Dioxide (21.0 - 33.0 mmol/l) 27.4 Anion Gap (0 - 20) 8.7 BUN (7.0 - 18.0 mg/dl) 10 Creatinine (0.60 - 1.30 mg/dL) 0.76 Est GFR ( Amer) (97 - 109 mL/min) 133 H Est GFR (Non-Af Amer) (80 - 90 mL/min) 110 H Glucose (70.0 - 110.0 mg/dl) 86 Hemoglobin A1c (4.8 - 6.0 %A1C) 5.0 Estim Average Glucose (MG/DL) 97 Calcium (8.0 - 10.5 mg/dl) 9.1 Laboratory Tests 01/22 0310 Hematology WBC (4.5 - 11.0 K/mm3) 7.2 RBC (4.40 - 5.90 M/mm3) 2.78 L Hgb (13.0 - 17.0 gm/dL) 9.8 L Hct (36.0 - 48.0 %) 30.8 L MCV (80.0 - 94.0 UM3) 110.8 H MCH (25.5 - 32.5 UUG) 35.3 H MCHC (29.0 - 35.5 gm/dL) 31.8 RDW (11.5 - 15.0 %) 14.0 Plt Count (150 - 400 K/mm3) 239 MPV (7.4 - 10.4 fl) 12.0 H Neut % (Auto) (49.0 - 76.0 %) 50.3 Lymph % (Auto) (23.0 - 38.0 %) 29.2 Washburn % (Auto) (1.0 - 10.0 %) 14.9 H Eos % (Auto) (1.0 - 5.0 %) 4.0 Baso % (Auto) (0.0 - 1.0 %) 1.0 Neut # (Auto) (2.4 - 6.3 K/mm3) 3.6 Lymph # (Auto) (1.2 - 4.0 K/mm3) 2.1 [place] # (Auto) (0.0 - 0.6 K/mm3) 1.1 H Eos # (Auto) (0.0 - 0.7 K/MM3) 0.3 Baso # (Auto) (0.0 - 0.2 K/mm3) 0.1 Absolute Nucleated RBC (0.00 - 0.01 X10 3uL) 0. 00 Immature Gran % (0.0 - 0.4 %) 0.6 H Nucleated RBC % (0.0 - 0.1 %) 0.0 Immature Gran # (0.00 - 0.07 x10 3/uL) 0.04 Laboratory Tests 01/22 0310 Toxicology Vancomycin Trough (10 - 20 mcg/mL) 12.8 Diagnosis, Assessment Plan Free Text A P: INFECTED WOUNF LEFT ANKLE MEDIAL SIDE HARDWARE INFECTION HX FRACTURE LEFT ANKLE WITH ORIF TOBACCO ABUSE ANAEMIA HTN WOUND CX WOUND CARE ORTHO EVAL SUGGESTED FOR REMOVAL OF HARD BAUMAN. DIFFICULT TO TX INFECTION IN THE PRESENCE OF HARDWARE DW PT DW N/STAFF DRUG SCR ANTIBX FOR NOEW -- WILL REASSESS 01/22 AWAIT PODIATRY INPUT ANTIBX RECOMMEND FROM ID SIDE FOR REMOVAL OF HARDWARE - -TO BE DECIDED BY PODIATRY IF TECH FEASIBLE Electronically Signed by Vishnu Lopez MD on 01/02 05/20 at 0133 RPT #:[id number] END OF REPORT 2020-01-23 12:39:00-00:00 [facility] ([facility]) Hospitalist Progress Note REPORT#:[id number] REPORT STATUS: Signed DATE:01/23/20 TIME: 1239 PATIENT: MAGGIE HOGAN UNIT #: [id number] ROOM/BED: [place] [address] : 56 AGE: 64 SEX: M ATTEND: Jaycee Parmar MD ADM AUTHOR: Swathi Whitten MD * ALL edits or amendments must be made on the [employer]/computer document * Subjective Chief Complaint: Follow-up left ankle osteomyelitis Pain is controlled No new issues noted Review of Systems Constitutional: Denies: fever. Respiratory: Denies: SOB, wheezing. Cardiovascular: Denies: chest pain, edema. Objective General VS/I O: Vital Signs: Date Time Temp Pulse Resp B/P B/P Pulse O2 O2 F low FiO2 Mean Ox Delivery Rate 01/22 1127 36.8 82 18 132/81 97.8 100 Room air 01/22 0753 97 Room air 0 01/22 0715 36.7 77 18 124/81 95.5 97 Room air 01/22 0323 36.7 74 20 148/84 105.4 98 Room air 01/21 2306 36.8 71 20 153/82 105.5 97 Room air 01/218 36.9 78 20 124/76 91.6 99 Room air 01/21 1843 98 Room air 01/21 1513 36.6 72 18 110/56 74.3 98 Room air 24 hour I O ending at 0700: 01/21 1900 01/22 0700 Intake Total 360 590.00 Output Total 860 Balance 360 -270.00 Intake, IV 470.00 Intake, Oral 360 120 Number 2 Bowel Movements Number 2 Incontinent Voids Number Voids 1 Output, Urine 860 Patient Weight Weight (lb): Weight (oz): Weight (kg): 60.000 Results Findings/Data: Laboratory Tests 01/22 01/22 0310 0310 Chemistry Sodium (134.0 - 147.0 mmol/l) 134 Potassium (3.6 - 5.2 mmol/L) 4.1 Chloride (98.0 - 107.0 mmol/l) 102 Carbon Dioxide (21.0 - 33.0 mmol/l) 27.4 Anion Gap (0 - 20) 8.7 BUN (7.0 - 18.0 mg/dl) 10 Creatinine (0.60 - 1.30 mg/dL) 0.76 Est GFR ( Amer) (97 - 109 mL/min) 133 H Est GFR (Non-Af Amer) (80 - 90 mL/min) 110 H Glucose (70.0 - 110.0 mg/dl) 86 Hemoglobin A1c (4.8 - 6.0 %A1C) 5.0 Estim Average Glucose (MG/DL) 97 Calcium (8.0 - 10.5 mg/dl) 9.1 Laboratory Tests 01/22 0310 Hematology WBC (4.5 - 11.0 K/mm3) 7.2 RBC (4.40 - 5.90 M/mm3) 2.78 L Hgb (13.0 - 17.0 gm/dL) 9.8 L Hct (36.0 - 48.0 %) 30.8 L MCV (80.0 - 94.0 UM3) 110.8 H MCH (25.5 - 32.5 UUG) 35.3 H MCHC (29.0 - 35.5 gm/dL) 31.8 RDW (11.5 - 15.0 %) 14.0 Plt Count (150 - 400 K/mm3) 239 MPV (7.4 - 10.4 fl) 12.0 H Neut % (Auto) (49.0 - 76.0 %) 50.3 Lymph % (Auto) (23.0 - 38.0 %) 29.2 [place] % (Auto) (1.0 - 10.0 %) 14.9 H Eos % (Auto) (1.0 - 5.0 %) 4.0 Baso % (Auto) (0.0 - 1.0 %) 1.0 Neut # (Auto) (2.4 - 6.3 K/mm3) 3.6 Lymph # (Auto) (1.2 - 4.0 K/mm3) 2.1 [place] # (Auto) (0.0 - 0.6 K/mm3) 1.1 H Eos # (Auto) (0.0 - 0.7 K/MM3) 0.3 Baso # (Auto) (0.0 - 0.2 K/mm3) 0.1 Absolute Nucleated RBC (0.00 - 0.01 X10 3uL) 0. 00 Immature Gran % (0.0 - 0.4 %) 0.6 H Nucleated RBC % (0.0 - 0.1 %) 0.0 Immature Gran # (0.00 - 0.07 x10 3/uL) 0.04 Laboratory Tests 01/22 0310 Toxicology Vancomycin Trough (10 - 20 mcg/mL) 12.8 Free Text Obj Notes Free Text Obj Notes: PHYSICAL EXAMINATION General appearance: alert, awake, no acute dist ress Head/Eyes: atraumatic, normocephalic, PERRL, EO ND ENT: normal ear left, normal ear right, normal nose, normal pharynx Neck: full range of motion, supple/no meningism us Cardiovascular: normal S1/S2, regular rate rhyt hm Respiratory/chest: good breath sounds, symmetri c expansion, no distress Abdomen: soft, non-tender, normal bowel sounds Genitourinary: deferred Extremities: moves all, no clubbing, no cyanosi s, no edema Musculoskeletal: full range of motion, normal i nspection Neuro/NET WEB APPLICATION DEVELOPER alert, oriented X 3, CNII-XII intact Skin: dry, intact Psychiatry: normal affect, normal judgment/insi ght, normal mood Diagnosis, Assessment Plan Problem List/A P: 1. Osteomyelitis of ankle and foot 2. Tobacco dependence Free Text DxA P Notes Free text DxA P notes: Osteomyelitis of left ankle hardware in place Continue iv antibiotics xray noted consulted podiatry ID following Macrocytic anemia check B12--- low at 186, start replacement, foli c acid psychiatry illness continue home meds obtain more details hypokalemia replaced lovenox for DVT prophylaxis Electronically Signed by Swathi Whitten MD on at 1330 RPT #:[id number] END OF REPORT 2020-01-22 17:37:00-00:[address] [facility] ([facility]) Infect Dis Consult Note_ Brief REPORT#:[id number] REPORT STATUS: Signed DATE:01/22/20 TIME: 1737 PATIENT: MAGGIE HOGAN UNIT #: [id number] ROOM/BED: [place] [address] : 56 AGE: 64 SEX: M ATTEND: Jaycee Parmar MD ADM AUTHOR: Vishnu Lopez MD * ALL edits or amendments must be made on the [employer]computer document * History - Adult longitudinal Additional family history: noncontributory Alcohol use: Denies EtOH use Drug use: Denies recreational drugs Smoking status for patients 13 years old or olde r: Current every day smoker Additional social history: smokes 1 ppd Allergies: Coded Allergies: No Known Allergies (01/21/20) Infect. Dis. Consult - Brief Free Text A P: INFECTED WOUNF LEFT ANKLE MEDIAL SIDE HARDWARE INFECTION HX FRACTURE LEFT ANKLE WITH ORIF TOBACCO ABUSE ANAEMIA HTN WOUND CX WOUND CARE ORTHO EVAL SUGGESTED FOR REMOVAL OF HARD BAUMAN. DIFFICULT TO TX INFECTION IN THE PRESENCE OF HARDWARE DW PT DW N/STAFF DRUG SCR ANTIBX FOR NOEW -- WILL REASSESS Electronically Signed by Vishnu Lopez MD on 01/02 04/22 at 0143 RPT #:[id number] END OF REPORT 2020-01-22 14:43:00-00:[address] [facility] ([facility]) Hospitalist Progress Note REPORT#:[id number] REPORT STATUS: Signed DATE:01/22/20 TIME: 1443 PATIENT: MAGGIE HOGAN UNIT #: [id number] ROOM/BED: [place] [address] : 56 AGE: 64 SEX: M ATTEND: Jaycee Parmar MD ADM AUTHOR: Swathi Whitten MD * ALL edits or amendments must be made on the [employer]/computer document * Subjective Chief Complaint: Follow-up left ankle osteomyelitis Pain is controlled Patient is a very poor historian Review of Systems Constitutional: Denies: fatigue, fever. Respiratory: Denies: SOB, wheezing. Cardiovascular: Denies: chest pain, edema. Objective General VS/I O: Vital Signs: Date Time Temp Pulse Resp B/P B/P Pulse O2 O2 F low FiO2 Mean Ox Delivery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
[2022-08-21 10:27] LABS: Absolute Lymphocytes (CBC) 1.6 K/uL (0.7-4.9); Hematocrit 42.2 % (39.6-49.0); Lymphocytes % 13.8 % (15.3-44.8); MCV 98.7 fL (80-100); MPV 9.1 fL (7.6-11.3); RBC Red Blood Cell Count 4.27 M/uL (4.33-5.43)
[2022-08-21 10:30] LABS: Protime INR 1.03
[2022-08-21] MEDS ORDERED: NA CHLORIDE 0.9% 1,000 ML ONE (10:36)
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
[2022-08-21 10:46] LABS: Bilirubin Direct 0.1 mg/dL (0-0.2); Bilirubin Indirect, Calculated 0.3 mg/dL (0.2-0.8); Bilirubin Total 0.4 mg/dL (0.2-1.0); Magnesium 2.1 mg/dL (1.6-2.4); Potassium 3.3 mEq/L (3.5-5.1); Protein, Total 6.4 g/dL (6.4-8.2); Troponin High Sensitivity 6.7 pg/mL (<58.9)
[2022-08-21] MEDS ORDERED: POTASSIUM 25 MEQ EFFERV TAB ONE (11:12)
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
[2022-08-21 16:46] LABS: Specific Gravity 1.028 (1.005-1.030); Urine Bilirubin NEGATIVE (Negative); Urine Blood Negative (Negative); Urine Clarity Clear (Clear); Urine Color Light-Yellow (Yellow); Urine Glucose NEGATIVE (Negative); Urine Protein NEGATIVE (Negative); Urine Urobilinogen Normal (Normal); Urine pH 6.5 (5.0-7.0)
[2022-08-21 17:20] VITALS: O2SAT 96
[2022-08-21 17:21] VITALS: BP 111/74
--- NOTE | 2022-08-22 17:43 | EKG ---
Test Date: 2022-08-21 Test Time: 10:38:03 [employer]: ANY MEASUREMENT RESULTS: Intervals: Rate: 81 NJ: 154 QRSD: 96 QT: 382 QTc: 443 [place]: P: 72 NJ: 154 QRS: 28 T: 76 INTERPRETIVE STATEMENTS: Sinus rhythm with frequent premature ventricular complexes Low voltage QRS Nonspecific ST and T wave abnormality Abnormal ECG No previous ECG available for comparison Electronically Signed On 08-22-22 17:39:59 CDT by Stan Cbob
== END 2022-08-21 16:56 | disposition home or self-care (01) ==
LOC: ER 09:47
DX: S22.41XA Multiple fractures of ribs, right side, initial encounter for closed fracture (principal); S22.089A Unspecified fracture of T11-T12 vertebra, initial encounter for closed fracture; Y04.8XXA Assault by other bodily force, initial encounter; F17.210 Nicotine dependence, cigarettes, uncomplicated
CPT/HCPCS: 85025; 80048; 36415; 83735; 85610; 80076; 81003; 84484; 83880; 70450; 72125; 71260; 74177; 71045; 72148; Q9967; J7030; 93005